=== PATIENT | female | born 1950 | race Caucasian/White ===

== ENCOUNTER → 2019-05-21 | Outpatient (CLI) | payer OTHER, MEDICARE, SELFPAY ==
[2019-05-06 11:11] VITALS: BMI 36.7
--- NOTE | 2019-05-21 14:52 | ECHOCS_ITS ---
Reason For Study: CAD/ASHD Procedure This was a 2D Doppler, Color Flow transthoracic echocardiogram. The study was technically difficult. Contrast injection was performed. Exam performed in department. Left Ventricle Normal size and thickness. The estimated ejection fraction is 65 %. Stage 1 diastolic dysfunction. No regional wall motion abnormalities noted. Right Ventricle Normal size and thickness. Normal systolic function. Atria Normal left atrium. Normal right atrium. Normal atrial septum. Mitral Valve The mitral valve is structurally normal. No prolapse or stenosis seen. Trivial mitral valve insufficiency. Tricuspid Valve Normal tricuspid valve. Unable to estimate RV systolic pressure due to insufficient tricuspid regurgitant envelope. Aortic Valve Normal aortic valve. Trisinus/trileaflet aortic valve. Pulmonic Valve Normal pulmonic valve. Great Vessels Normal aortic root. Normal arch. Normal inferior vena cava. Inferior vena cava collapse with sniff. Pericardium/Pleural No pericardial effusion. Medication 22 gauge I.V. with prn adaptor inserted into right arm. Diluted definity 2ml given slow IV push to enhance endocardial definition. MMode/2D Measurements & Calculations LVIDd: 5.2 cm IVSd: 1.2 cm LAV(MOD-sp4): 60.8 ml LVIDs: 3.3 cm LVPWd: 1.0 cm FS: 37.4 % LA A4 area: 20.2 cm2 RA A4 area: 16.4 cm2 Time Measurements MV dec time: 0.23 sec Doppler Measurements & Calculations MV E max aditya: 115.1 cm/sec Lat Peak E' Aditya: 7.2 cm/sec Med Peak E' Aditya: 5.5 cm/sec MV A max aditya: 119.9 cm/sec E/E' lat: 16.1 E/E' med: 21.0 MV E/A: 0.96 MV V2 max: 151.2 cm/sec MV P1/2t max aditya: 129.0 cm/sec Ao V2 max: 138.9 cm/sec MV max P.1 mmHg MV P1/2t: 122.9 msec Ao max P.7 mmHg MV V2 mean: 87.8 cm/sec MV dec slope: 307.7 cm/sec2 Ao V2 mean: 91.3 cm/sec MV mean P.5 mmHg Ao mean P.8 mmHg MV V2 VTI: 45.1 cm MVA(P1/2t): 1.8 cm2 Ao V2 VTI: 29.2 cm LV V1 max: 91.8 cm/sec PA V2 max: 76.1 cm/sec LV V1 max P.4 mmHg LV V1 mean P.0 mmHg LV V1 mean: 65.9 cm/sec LV V1 VTI: 24.9 cm Interpretation Summary The estimated ejection fraction is 65 %. Stage 1 diastolic dysfunction. Trivial mitral valve insufficiency. Unable to estimate RV systolic pressure due to insufficient tricuspid regurgitant envelope. Compared to echo report dated 10/23/2016, LV Function has completely normalized. The study was technically difficult. Contrast injection was performed. Ordering Physician: Lance Dunne Referring Physician: Jonathan Vizcarra Performed By: Brodwolf, Erik, RCS
== END | disposition home or self-care (01) ==
LOC: CVS 14:50
PROVIDERS: Family Provider Family Medicine; PCP Family Medicine; Referring Provider Internal Medicine Cardiovascular Disease; Visit Provider Internal Medicine Cardiovascular Disease
DX: I25.10 Atherosclerotic heart disease of native coronary artery without angina pectoris (principal); I10 Essential (primary) hypertension; E78.5 Hyperlipidemia, unspecified
CPT/HCPCS: 93306; Q9957; A4216; C8929

== ENCOUNTER → 2019-06-04 | Outpatient (CLI) | payer OTHER, MEDICARE, SELFPAY ==
[2019-05-06 11:11] VITALS: BMI 36.7
[2019-05-22 10:00] VITALS: BMI 37.4
--- NOTE | 2019-06-04 09:30 | STEWCON_ITS ---
Reason For Study: CAD/ASHD Stress Results Protocol: Cristino Protocol WITH DEFINITY Maximum Predicted HR: 150 bpm Target HR: 128 bpm % Maximum Predicted HR: 91 % DurationHeart Rate Stage (mm:ss) (bpm) BP Comment BASELINE 74 124/622 CC DEFINITY STAGE 1 3:00 118 164/88 STAGE 2 1:03 137 / INCREASED SOB, 2 CC DEFINITY RECOVERY 86 120/78 Stress Duration: 4:03 mm:ss Maximum Stress HR: 137 bpm Baseline Echocardiogram Findings The estimated ejection fraction is 65 %. Stress Echo Wall motion Data Resting WM Intermediate WM Stress WM Resting Wall Motion Wall Motion Stress No regional wall motion Mid-Anterior : Severely abnormalities noted. Hypokinetic. Mid-Lateral : Severely Hypokinetic. Mid-anteroseptal : Severly Hypokinetic. Anterior Badger : Severly Hypokinetic. EKG Data The baseline ECG displays normal sinus rhythm. The patient exercised according to the regular Cristino protocol for a total duration of 4:03. The maximum heart rate attained was 139 beats per minute. This was 92% of maximum predicted heart rate. The patient exercised into stage 2 of the Cristino protocol. The stress ECG displays diffuse abnormal ST segments. Interpretation Summary The estimated ejection fraction is 65 %. Mid-Anterior : Severely Hypokinetic. Mid-Lateral : Severely Hypokinetic. Mid-anteroseptal : Severly Hypokinetic. Anterior Badger : Severly Hypokinetic. Abnormal, adequate, treadmill echocardiogram. Positive for ischemia by EKG and echocardiographic criteria. No anginal symptoms noted. No arrhythmias noted. Appropriate blood pressure response to exercise. Below average exercise capacity for age. Patient appeared to develop [address] segment depression at peak exercise which persisted until 9 minutes 50 seconds into recovery. In addition she appeared to develop severe mid anteroseptal, anteroapical, and lateral hypokinesis at peak exercise. Test terminated due to dyspnea and fatigue. Final LVEF of 35%. Patient was referred to our office for arrangements for left heart catheterization. No complications. The study was technically difficult. Contrast injection was performed. Ordering Physician: Lance Dunne MD Referring Physician: Lance Dunne Performed By: Tona Pal, BERYL, RVT
--- NOTE | 2019-06-04 10:32 | RAD_ITS ---
STUDY: X-RAY CHEST REASON FOR EXAM: Female, 68 years old. Abnormal stress echo TECHNIQUE: Frontal and lateral views of the chest. COMPARISON: 10/24/2016 FINDINGS: The lungs are clear and expanded. There is no demonstrated pleural abnormality. Normal size heart. Normal mediastinum and debbie. Normal visualized pulmonary arteries. Normal visualized aortic arch and descending thoracic aorta. Normal visualized thoracic spine. Hardware in the right humerus. Clips in the right neck. Remote rib trauma. There is no demonstrated abnormality of the visualized soft tissue structures of the upper abdomen. RAD/Chest PA and Lateral IMPRESSION: No acute pulmonary findings. Electronically Signed: Lui Vega MD at 20:20 EDT Tel , Service support ,
[2019-06-04 11:44] LABS: Hematocrit 37.5 % (37-47); Hemoglobin 12.3 g/dL (12.0-15.0); Mean Corp Hgb Conc 32.8 g/dL (32-36); Mean Corpuscular Volume 91.5 fL (81-99); Platelet Count 200 K/mm3 (150-450); RBC Distribution Width CV 12.8 % (11.6-14.6); RBC Distribution Width SD 42.8 fl (35.1-43.9)
[2019-06-04 12:02] LABS: Anion Gap 10 (5-15); BUN 27 mg/dL (7-18); BUN/Creat Ratio 18.5 RATIO (10-20); Calcium,Total 9.2 mg/dL (8.5-10.1); Chloride 105 mmol/L (98-107); Creatinine, Serum 1.46 mg/dL (0.55-1.02); EST Glomerular Filtration Rate 38 mL/min (>60); Est Glom Filt Rate - Afr Amer 45 mL/min (>60); Glucose 154 mg/dL (74-106); Potassium 4.6 mmol/L (3.5-5.1); Sodium Level 141 mmol/L (136-145)
[2019-06-04 12:05] LABS: International Normalized Ratio 1.2; Partial Thromboplast Time 28.4 Seconds (24.1-36.2); Prothrombin Time (Protime)PT. 15.2 SECONDS (11.7-14.9)
== END | disposition home or self-care (01) ==
PROVIDERS: Family Provider Family Medicine; PCP Family Medicine; Referring Provider Internal Medicine Cardiovascular Disease; Visit Provider Internal Medicine Cardiovascular Disease
DX: I25.10 Atherosclerotic heart disease of native coronary artery without angina pectoris (principal); Z95.5 Presence of coronary angioplasty implant and graft; E78.5 Hyperlipidemia, unspecified; R94.39 Abnormal result of other cardiovascular function study
CPT/HCPCS: 36415; 71046; 80048; 85027; 85610; 85730; 93017; 93350; Q9957; A4216; C8928

== ENCOUNTER 2019-06-11 07:48 | Day surgery (SDC) | payer OTHER, MEDICARE, SELFPAY ==
[2019-05-22 10:00] VITALS: BMI 37.4
[2019-06-10 08:08] VITALS: BMI 37.4
--- NOTE | 2019-06-11 10:57 | HP.PCM_ITS ---
Problem List (1) Abnormal stress echo Status: Acute (2) Atherosclerosis of coronary artery of prairie band heart without angina pectoris Status: Chronic Comment: 2.5 X 24 mm Taxus ARIANA to mid RCA; unsuccessful PTCA of totally occluded distal main CX,30% ostial stenosis of OM. Faint collaterals filling a small AV continuation and small posterior ventricular branch. 50-60% proximal stenosis of LAD which is calcified. per Dr. Dominick Mahoney @ [facility] 08/19/2007 (3) Left ventricular hypertrophy Status: Chronic Comment: EF 55% with segmental dysfunction, regional wall motion abnromalities and PROBABLE grade 2 diastolic dysfunction per echo 10/23/2016 done @ [facility] History and Physical Date of Admission: 06/11/19 [facility] [place] [address] [facility] [place] [address] OFFICE VISIT Date of Service: 05/22/19 MR#: [id number] Acct: [id number] Name: NASRIN ELLIS Rep #: [id number] : 1950 Provider: Lance trevino MD Age/Sex: 68/F Location: [facility] Status: Signed HPI HPI History of Present Illness Details: HPI History of Present Illness Details: Mrs. Ellis is a very pleasant 68-year-old female, former patient of Dr. Juarez, referred here to establish care. She has a history of hypertension, diabetes, hypercholesterolemia, chronic kidney disease, former [id number] smoker, quit in 2001, never been evaluated with pulmonary function test, never been told she had COPD, who also has coronary artery disease status post angioplasty and stenting in 2016 at [facility] by Dominick Mahoney. At that time she underwent successful Angiomax assisted drug-eluting stent to the mid right coronary artery receiving a 2.5 x-24 Taxus drug-eluting stent, and unsuccessful angioplasty of a totally occluded distal main circumflex. The LAD at that time had a 50 to 60% proximal stenosis which was calcified. This event took place after she developed T wave inversion after hysterectomy. Her most recent echocardiogram on 10/23/2016 at [facility] demonstrated an EF of 55%, mild LVH, mild MR, mild to moderate TR with an estimated RVSP of 56 mmHg consistent with at least moderate pulmonal hypertension. In addition she has peripheral vascular disease status post right carotid endarterectomy on 12/13/2011. Her most recent treadmill EKG took place on 12/14/2016 in which she went 5.3 METS and was clinically negative for ischemia. No imaging was performed. Patient denies any chest pain, angina, prior to her stent, or subsequent to it. She has had no presyncope, syncope, lightheadedness or dizziness. Recently she came in was found to be hypertensive of 150/70, and her lisinopril was increased. Her blood pressures at home of range between 108 and 142 systolic, and the patient is completely asymptomatic. She feels much better since adjusting her lisinopril. She is taking and tolerating her medicines well In our office today her blood pressure is 140/70, pulse is 72 and regular. Physical exam demonstrates regular rate and rhythm, normal S2, no S3-S4. She is a 2/6 holosystolic murmur best heard at the upper right sternal border. No edema. Her EKG dated 05/06/2019 shows normal sinus rhythm, normal axis, normal intervals, no evidence of previous myocardial infarction. Her lipids as of 04/14/2019 show an HDL of 42 and LDL of 86. Intake Vital Signs 05/22/19 Blood Pressure 150/70 H 05/22/19 Blood Pressure Location Lt brachial 05/22/19 Blood Pressure Position Sitting 05/22/19 Respiratory Rate 20 H 05/22/19 Pulse Rate 72 05/22/19 Pulse Source Auscultation 05/22/19 Height 5 ft 4 in 05/22/19 Weight: 218 lb 05/22/19 Body Mass Index (BMI) 37.4 05/22/19 Blood Pressure 140/70 H 05/22/19 Blood Pressure Location Lt brachial 05/22/19 Blood Pressure Position Sitting 05/22/19 Respiratory Rate 20 H 05/22/19 Pulse Rate 72 05/22/19 Pulse Source Auscultation Intake Visit Reasons: 2 WK BP CK Short Piece Handler Required: No Is patient in pain?: No Allergies pioglitazone HCl [From Actos] Allergy (Verified 05/22/19 10:06) Swelling Medications Aspirin [Aspirin, Baby] 81 mg PO QHS 09/07/13 [History Confirmed 04/30/19] Multivitamins,Ther W-Minerals [Multivitamin With Minerals] 1 tab PO DAILY 09/07/13 [History Confirmed 04/30/19] Metoprolol(XL)Succ [Toprol Xl (Beta Cj)] 50 mg PO DAILY 10/23/16 [History Confirmed 04/30/19] Ranitidine HCl 1 tab PO DAILY 10/23/16 [History Confirmed 04/30/19] Magnesium Oxide 400 mg PO DAILY #1 tab 10/25/16 [Rx Confirmed 04/30/19] bifidobacterium bifidum and longum 460 mg (9-1 billion cell) capsule cap PO cap 04/30/19 [History Confirmed 04/30/19] cholecalciferol (vitamin D3) 2,000 unit capsule 4,000 unit PO DAILY cap 04/30/19 [History Confirmed 04/30/19] clopidogrel 75 mg tablet 75 mg PO DAILY 04/30/19 [History Confirmed 04/30/19] glimepiride 2 mg tablet 2 mg PO QAM 04/30/19 [History Confirmed 04/30/19] nitroglycerin 0.4 mg sublingual tablet 0.4 mg SUBLINGUAL Q5-15M 04/30/19 [History Confirmed 04/30/19] amlodipine 10 mg tablet 5 mg PO DAILY tab 05/06/19 [History Confirmed 05/06/19] exenatide ER 2 mg/0.65 mL subcutaneous pen injector 2 mg SC Q7D 05/06/19 [History Confirmed 05/06/19] furosemide 20 mg tablet 20 mg PO QAM tab 05/06/19 [History Confirmed 05/06/19] lisinopril 20 mg tablet 20 mg PO DAILY #90 tab 05/06/19 [Rx Confirmed 05/06/19] menthol 4 % topical gel 1 applic TOPICAL TID PRN ml 05/06/19 [History Confirmed 05/06/19] niacin ER 500 mg capsule,extended release 500 mg PO QHS 05/06/19 [History Confirmed 05/06/19] rosuvastatin 10 mg tablet 10 mg PO DAILY #90 tab 05/06/19 [Rx Confirmed 05/06/19] [facility] Medical History Diastolic congestive heart failure (Chronic) Chronic kidney disease (Chronic) Left ventricular hypertrophy (Chronic) Secondary pulmonary hypertension (Chronic) Nonrheumatic mitral (valve) insufficiency (Chronic) Nonrheumatic tricuspid (valve) insufficiency (Chronic) Atherosclerosis of coronary artery of prairie band heart without angina pectoris (Chronic) PVCs (premature ventricular contractions) (Chronic) Carotid artery disease (Chronic) Essential hypertension (Chronic) Hyperlipidemia (Chronic) Diabetic neuropathy (Chronic) Diabetes mellitus, type II (Chronic) History of arthritis (Chronic) Surgical History Stented coronary artery (Chronic 08/19/07) History of right-sided carotid endarterectomy (Chronic 12/13/11) History of cataract removal with insertion of prosthetic lens (Chronic) History of colonoscopy (Chronic) History of laparoscopic-assisted vaginal hysterectomy (Chronic) History of shoulder surgery (Chronic) History of tonsillectomy (Chronic) Family History Mother COPD (chronic obstructive pulmonary disease) Hypertension CAD (coronary artery disease) Sister Hypertension Diabetes Social History (Updated 05/22/19 @ 10:25 by Lance Dunne MD) Smoking Status: Former smoker quit date: 05/01/02 pack-years: 40 how long ago did patient quit smokin years ago alcohol intake: current alcohol intake frequency: holidays/special occasions only substance use type: does not use caffeine: Yes Type: coffee Number of servings: 12 additional social history: Works at [employer] ROS Const Const: Negative for fatigue, weakness, body ache, fever(s), headache(s), chills, frequent falls, night sweats, daytime sleepiness, difficulty sleeping, excessive sweating, weight gain, weight loss, increased appetite, poor appetite, anorexia or other Eyes Eyes: Negative for blind spots, loss of peripheral vision, transient loss of vision, blurry vision, change in vision, double vision, floaters, tunnel vision or other ENT ENT: Negative for headache(s), dizziness, hearing loss, tinnitus, Nosebleed/epistaxis, balance problems, post nasal drip, lip swelling, tongue swelling, bleeding gums, hoarseness, neck pain, dry mouth or other Cardio Chest Pain: No Resp Respiratory: Negative for SOB with activity, SOB at rest, SOB orthopnea\SOB lying down, Coughing up blood/hemoptysis, chest congestion, pain on inspiration, snoring, stridor, wheezing, crackles, paroxysmal nocturnal dyspnea or other GI GI: Negative nausea, vomiting, heartburn, constipation, belching, bloating, cramping, vomiting blood/hematemesis, bright, red blood in stools, black,tarry stools, loose stools, Difficulty Swallowing or other : Negative for hematuria, frequent nighttime urination/ nocturia, erectile dysfunction or abnormal vaginal bleeding Musc Musc: Negative for muscle aches/ myalgia, muscle weakness, joint pain or balance problems Skin Skin: Negative redness, non-healing lesions, rash, unusual bruising, skin ulcer, wounds, jaundice or other Neuro Neuro: Negative for dizziness, lightheadedness, near syncope, syncope, orthostatic symptoms, frequent falls, headache(s), weakness, confusion, memory loss, restless legs, blurry vision, double vision, vertigo, seizures, lack of coordination or other Michael Hematologic/Lymphatic: Negative for easy bleeding, easy bruising, enlarged lymph nodes or other Endo Endo: Negative for fatigue, cold intolerance, heat intolerance, excessive sweating, flushing, increased thirst/drinking, increased hunger, hair loss, hair growth or other Psych Psych: Negative for anxiety, depression, thoughts of harming anyone, thoughts of harming yourself, visual hallucinations, panic attacks or audible hallucinations Allergy Allergy/Immunology: Negative for throat swelling, Negative for tongue swelling, Negative for hives, Negative for rash, Negative for lip swelling Cardiology Exam Const Appearance: cooperative, healthy appearing and no acute distress Nutritional Appearance: well nourished Orientation: alert, oriented x3 and oriented to person Head Head: normal to inspection, normocephalic and atraumatic Nose: external nose normal Face and Sinus: face symmetric Mouth: oral mucosae normal Eyes General: appearance normal, both eyes and all related structures Eyelids: eyelids normal Conjunctivae: conjunctivae normal Pupils: PERRL and normal by confrontation EOM: EOM intact bilaterally Neck Neck: normal visual inspection and full ROM Carotids: normal carotid upstroke Chest Chest inspection: normal inspection of the chest Auscultation: Bilateral: Clear to Auscultation Cardio Palpation: normal PMI Rate: regular rate Rhythm: regular rhythm Heart sounds: S1 normal and S2 normal GI GI: normal to inspection, no hepatosplenomegaly and bowel sounds present Neuro General: alert, awake, oriented x3, CN's II-XI intact bilaterally and moves all extremities Skin Skin: no rashes or lesions noted Extremities Pulses: Normal: Right Femoral Pulse, Left Femoral Pulse, Right Dorsalis Pedis Pulse, Left Dorsalis Pedis Pulse, Right Posterior Tibial Pulse, Left Posterior Tibial Pulse, Right Radial Pulse, Left Radial Pulse Lower Extremity Edema: None: Bilateral Psych Psychological: normal affect Assessment & Plan 1. Atherosclerosis of coronary artery of pra[place] heart without angina pectoris I25.10 2.5 X 24 mm Taxus ARIANA to mid RCA; unsuccessful PTCA of totally occluded distal main CX,30% ostial stenosis of OM. Faint collaterals filling a small AV continuation and small posterior ventricular branch. 50-60% proximal stenosis of LAD which is calcified. per Dr. Dominick Mahoney @ [facility] 08/19/2007 Plan 1. Coronary artery disease: No exertional anginal symptoms at this time. Her blood pressure and heart rate are under excellent control. Recommend continuing her baby aspirin, Plavix, amlodipine Lasix, lisinopril and metoprolol. Orders Orders: Echo Complete Today 2. Secondary pulmonary hypertension RVSP 56 mmhg per echo 10/23/2016 done @ [facility] Plan 2. Pulmonary hypertension: The patient had at least moderate pulmonary hypertension by echocardiogram in 2017. I recommended a repeat echocardiogram for both her coronary disease as well as her pulmonary hypertension. Continue diuretic therapy. She is euvolemic at this time. 3. Hyperlipidemia E78.5 Plan 3. Hyperlipidemia: Her LDL and HDL cholesterol under excellent control. Continue Niaspan. 4. Return office in 6 months. This note was generated using a voice recognition system and there may be incorrect words, spelling or punctuation that were not noted when reviewing the office note prior to saving. Plan Detail Follow Up +6M ([place]) Coding Level of Care Code Off vis,est,level 3 Diagnoses Atherosclerosis of coronary artery of prairie band heart without angina pectoris I25.10 Secondary pulmonary hypertension Hyperlipidemia E78.5 Coding Level of Care Code Off vis,est,level 3 Diagnoses Atherosclerosis of coronary artery of pra[place] heart without angina pectoris I25.10 Secondary pulmonary hypertension Hyperlipidemia E78.5 Supplemental Info Supplemental Information Diagnostics Electrocardiogram 05/06/19 Chest X-Ray 10/24/16 05/22/19 1025 <Electronically signed by Lance Dunne MD> Date _ Lance Blackburn Signature: Date (if applicable) CC: Santos Vizcarra MD ~ Interventional cardiology attending: Patient seen and examined, and history and physical reviewed. No interim changes since last visit. We will proceed with left heart catheterization.
--- NOTE | 2019-06-11 11:31 | CL.D_ITS ---
Patient Name: NASRIN HUGGINS Study Date: 06/11/2019 Performing: Lance Dunne MD Ht: 64.17 inches 163 cm : 1950 Wt: 214.49 lbs 97.29 kg Age: 68 Gender: female BSA: 2.02 PROCEDURE(S) PERFORMED QO32-MBI/COR/LV CLINICAL PROFILE AND INDICATIONS Indications: Stable Known CAD, Other; abnormal stress test Heart Failure: None Stress/Imaging Date: 06/04/2019Stress Echocardiogram: Positive Intermediate Risk Angina Classification Anginal Classification w/in 2 Weeks: No symptoms CAD Presentations: Other: Dyspnea on exertion. Comorbidities/Risk Factors: Hypertension Dyslipidemia Prior PCI CONCLUSIONS Normal Left Ventricular systolic function LVEF: by LV gram 65 % Elevated Left Ventricular End Diastolic Pressure Triple vessel CAD of the LM, LAD, DIAG, OM Widely patent RCA stent RECOMMENDATIONS Management as per referring Contract Serviceman Surgery consult for coronary revascularization DESCRIPTION OF PROCEDURE The patient arrived to the procedure lab. The risks and benefits of the procedure as well as a full d escription of our services here and current unavailability of surgical backup were fully explained to the patient and/or their significant other prior to the catheterization. The Timeout was completed, verifying the correct patient and procedure. The patient's procedural site was prepped and draped in the usual fashion. Local anesthetic was given subcutaneously to right groin region with Lidocaine 2%. Using a modified Seldinger technique, arterial access was obtained via the right femoral artery, a 4 Fr sheath was inserted Left Coronary Artery selective angiography was performed in multiple views us ing a 4 Fr. JL5 catheter. Right Coronary Artery selective angiography was then performed in multiple views using a 4 Fr. 3DRC catheter. Left Ventriculography was performed in WATSON projection using a 4 Fr . Pigtail catheter. LV to AO pullback pressures were then recorded.The arterial sheath was pulled and manual compression applied until hemostasis is achieved. CORONARY ANGIOGRAPHY DOMINANCE: Right Dominant LEFT HEART ASSESSMENT Left Ventricular Ejection Fraction: by LV Gram 65 % Normal LV wall motion Normal Left Ventricular systolic function LVEDP: 23 mmHg LEFT MAIN: 70 distal % Stenosis, Severe calcification LEFT ANTERIOR DESCENDING ARTERY: Moderate calcification OSTIAL LAD: 75 % Stenosis PROX LAD: 75 % Stenosis DIAGONAL 1: Mid - 75 % Stenosis CIRCUMFLEX ARTERY: PROX CIRC: Mild calcification DISTAL CIRC: is occluded OM 1: Ostial - 85 % Stenosis RIGHT CORONARY ARTERY: MID RCA: Previously placed stent is patent COLLATERAL FLOW: Collateral flow from Right to Left COMPLICATIONS PROCEDURE MEDICATIONS Oxygen: 2 L/min via nasal cannula Nitro 300 mcg IC 06/11/2019 11:18:32 IV Fluids: .9 NaCl IV started @ 200 ml/hr 06/11/2019 08:10:02 SUMMARY OF HEMODYNAMIC DATA Time AIR REST ECG 08:06:45 ECG 10:32:08 AO 173/60 (104) SA 11:09:26 LV 170/-5, 24 11:17:17 LV 172/-4, 23 11:17:23 LVp 172/-6, 22 11:17:39 AOp 174/57 (103) 11:17:44 AO 176/59 (105) 11:17:58 Signed By Lance Dunne MD On 06/11/2019 11:30:51 Signed By Lance Dunne MD On 06/11/2019 11:30:38 Lance Dunne MD
== END 2019-06-11 15:50 | disposition home or self-care (01) ==
LOC: CLSP 07:49
PROVIDERS: Family Provider Family Medicine; PCP Family Medicine; Referring Provider Internal Medicine Cardiovascular Disease; Visit Provider Internal Medicine Cardiovascular Disease
DX: I25.10 Atherosclerotic heart disease of native coronary artery without angina pectoris (principal); E11.22 Type 2 diabetes mellitus with diabetic chronic kidney disease; I13.0 Hypertensive heart and chronic kidney disease with heart failure and stage 1 through stage 4 chronic kidney disease, or unspecified chronic kidney disease; N18.9 Chronic kidney disease, unspecified; I50.30 Unspecified diastolic (congestive) heart failure; E78.00 Pure hypercholesterolemia, unspecified; I27.20 Pulmonary hypertension, unspecified; I49.3 Ventricular premature depolarization; E11.40 Type 2 diabetes mellitus with diabetic neuropathy, unspecified; E11.51 Type 2 diabetes mellitus with diabetic peripheral angiopathy without gangrene; I34.0 Nonrheumatic mitral (valve) insufficiency; Z95.5 Presence of coronary angioplasty implant and graft; Z79.82 Long term (current) use of aspirin; Z79.84 Long term (current) use of oral hypoglycemic drugs; Z79.899 Other long term (current) drug therapy; Z87.891 Personal history of nicotine dependence
CPT/HCPCS: 93458; J7030; C1769; C1894; Q9967

== ENCOUNTER → 2019-09-29 13:03 | Outpatient (CLI) | payer OTHER, MEDICARE, SELFPAY ==
[2019-06-10 08:08] VITALS: BMI 37.4
--- NOTE | 2019-09-29 13:19 | US_ITS ---
Procedure: Ultrasound-guided left thoracentesis. INDICATIONS: Pleural effusion. CONSENT: The entire procedure, risks, benefits and alternatives (including doing nothing) were discussed with the patient preprocedure. Risks presented included (but were not limited to) infection/abscess, bleeding, pain, reaction to medications and collapse of lung with potential need for chest tube placement. All patient questions were answered satisfactorily. Written consent was obtained, witnessed and placed on the patient''s chart. TECHNIQUE: The patient was taken into the ultrasound suite and placed in the upright sitting position. A short timeout was performed. Limited and directed sonographic evaluation of the left lung base demonstrated a moderate pleural fluid collection. An intended percutaneous site was identified and marked. The soft tissues overlying and around the intended percutaneous site were then thoroughly prepped and draped in the usual sterile manner. Local and deep anesthesia was obtained utilizing 2.0 cc of 2% lidocaine without epinephrine. A tiny dermatotomy was made. Next, a 5 Nigerian single access device with central sharp stylette and outer poly catheter was advanced into the pleural fluid collection and the central stylette removed. From this positioning, 2, 60 cc syringes were filled with the pleural fluid and sent to the laboratory for evaluation. Thereafter, vacuum device was utilized to remove left lung base pleural fluid. Total volume of approximately 1 L of serosanguineous fluid was removed from the left lung pleural space. All devices were removed, the soft tissues cleansed and a sterile occlusive dressing applied. US/Thoracentesis W US IMPRESSION: Successful, ultrasound-guided, left lung base thoracentesis. Postprocedure chest x-ray is pending. INDICATION: The patient tolerated the procedure well without evident immediate periprocedural complication. Electronically Signed: Davie Drummond MD at 16:08 EST , Service support ,
--- NOTE | 2019-09-29 13:53 | RAD_ITS ---
STUDY: X-RAY CHEST REASON FOR EXAM: Female, 69 years old. post thoracentesis TECHNIQUE: AP upright inspiration and expiration views status post thoracentesis. COMPARISON: June 04, 2019. FINDINGS: Status post left thoracentesis without evident pneumothorax. No shift of central cardiomediastinal structures. Status post median sternotomy. Small to moderate size residual left pneumothorax. Normal size heart. Normal mediastinum and debbie. Normal visualized pulmonary arteries. There is atherosclerotic calcification of the aortic arch with tortuosity. Mild diffuse demineralization without evident acute osseous abnormality. There is no demonstrated abnormality of the visualized soft tissue structures of the upper abdomen. RAD/Chest Insp/Exp 2 View IMPRESSION: No evident pneumothorax. No shift of central cardiomediastinal structures. Small to moderate size residual left lung base pleural fluid collection. Diffuse demineralization without evident acute osseous abnormality. Status post right humeral ORIF Electronically Signed: Davie Drummond MD at 15:54 EST , Service support ,
[2019-09-29 14:16] VITALS: BP 204/66; PULSE 83; RESP 16; O2SAT 94
[2019-09-29 14:30] VITALS: BP 145/46; BP 151/73; BP 183/75; PULSE 81; PULSE 85; PULSE 89; RESP 16; RESP 18; O2SAT 92; O2SAT 94
== END ==
PROVIDERS: Family Provider Family Medicine; PCP Family Medicine
DX: J90 Pleural effusion, not elsewhere classified (principal); Z95.1 Presence of aortocoronary bypass graft
CPT/HCPCS: 32555; 71046

== ENCOUNTER → 2019-10-21 10:14 | Outpatient (CLI) | payer OTHER, MEDICARE, SELFPAY ==
[2019-10-14 14:44] VITALS: BMI 34.3
--- NOTE | 2019-10-21 10:24 | CR.HP_ITS ---
CR - History & Physical - General Arrival date:: 10/21/19 Arrival time:: 10:15 Date of Referral:: 10/14/19 Date of CR Evaluation:: 10/21/19 Referring Physician: Dr. Lance Dunne Primary Diagnosis: CABG - History of Present Cardiac Event Onset Date: Enter Onset Date of cardiac illnesses in Comment field below Coronary Artery Bypass Graft:: Yes - 08/11/2019 PTCA or coronary stenting:: Yes - previous history Type of Symptoms:: shortness of breath, had been a previous patient of Dr. 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 Abnormal EKG and had heart cath, sent to [facility] then for CABG by Dr. Clay. Were there any complications?: s/p atrial fibrillation - Medications Home Medications: Ambulatory Orders Medication Instructions Recorded Multivitamins,Ther W-Minerals 1 tab PO DAILY 09/07/13 [Multivitamin With Minerals] cholecalciferol (vitamin D3) 50 4,000 unit PO DAILY cap 04/30/19 mcg (2,000 unit) capsule exenatide microspheres 2 mg/0.65 2 mg SC Q7D 05/06/19 mL subcutaneous pen injector niacin 500 mg capsule,extended 500 mg PO QHS 05/06/19 release rosuvastatin 10 mg tablet 10 mg PO DAILY #90 tab 05/06/19 acetaminophen 500 mg tablet 1,000 mg PO Q6H PRN tab 09/03/19 apixaban 5 mg tablet 5 mg PO BID 09/03/19 ascorbic acid (vitamin C) 500 mg 500 mg PO DAILY cap 09/03/19 capsule aspirin 81 mg tablet,delayed 81 mg PO DAILY 09/03/19 release glimepiride 2 mg tablet 4 mg PO QAM tab 09/03/19 folic acid 1 mg tablet 1 mg PO DAILY 09/30/19 furosemide 20 mg tablet 40 mg PO DAILY tab 09/30/19 melatonin 3 mg capsule 3 mg PO HS PRN 09/30/19 metolazone 2.5 mg tablet 2.5 mg PO .COMPLEX 10/14/19 metoprolol succinate 50 mg 50 mg PO BID #180 tab 10/14/19 tablet,extended release 24 hr losartan 25 mg tablet 12.5 mg PO DAILY #90 tab 10/20/19 - Allergies Allergies/Adverse Reactions: Allergies pioglitazone HCl [From Jobros] Allergy (Verified 10/14/19 15:01) Swelling Caused swelling to ankles. - Sleep Disorder Evaluation Hx of Sleep Apnea: No Do you snore loudly (louder than talking or can be heard through closed doors)?: No Do you often feel tired/ fatigued/ sleepy during daytime?: Yes Has anyone observed you stop breathing during sleep?: No History of Hypertension (for STOP score): Yes STOP Results: Positive Advanced Directives - Advanced Directives Power of Green Building Design Specialist: No Living Will: No Advance Directives Information Provided: Yes Advance Directives on File: No DNR Order?:: No - MOLST See MOLST form: No Past Medical History - Past Medical Illness Medical History: Past Medical History (Last Reviewed 10/13/19 @ 19:17 by Angelina Shahid) Bilateral pleural effusion (Acute) J90 worsening left side, small right side: pt sent for u/s guided thoracentesis per Dr. Clay Cellulitis of left leg (Acute) L03.116 post CABG in left leg SVG harvest site 08/26/19 Postoperative atrial fibrillation (Acute) I97.89, I48.91 After CABG 08/12/2019, started on Amoidarone, Eliquis. Atherosclerosis of coronary artery without angina pectoris (Chronic) I25.10 TAM to LAD, SVG to Diagonal, SVG to OM per Dr. Elijah Clay @ [facility] 08/12/2019 Abnormal stress echo (Acute) R94.39 Diastolic congestive heart failure (Chronic) I50.30 Admitted 10/23/2016 Chronic kidney disease (Chronic) N18.9 Left ventricular hypertrophy (Chronic) I51.7 EF 55% with segmental dysfunction, regional wall motion abnromalities and PROBABLE grade 2 diastolic dysfunction per echo 10/23/[address] [facility] Secondary pulmonary hypertension (Chronic) RVSP 56 mmhg per echo 10/23/[address] @ [facility] Nonrheumatic mitral (valve) insufficiency (Chronic) I34.0 Mild (1+) per echo 10/23/2016 done a@ [facility] Nonrheumatic tricuspid (valve) insufficiency (Chronic) I36.1 Moderate (1-2+) per echo 10/23/[address] [facility] Atherosclerosis of coronary artery of [place] heart without angina pectoris (Chronic) I25.10 2.5 X 24 mm Taxus ARIANA to mid RCA; unsuccessful PTCA of totally occluded distal main CX,30% ostial stenosis of OM. Faint collaterals filling a small AV continuation and small posterior ventricular branch. 50-60% proximal stenosis of LAD which is calcified. per Dr. Dominick Mahoney @ [facility] 08/19/2007 PVCs (premature ventricular contractions) (Chronic) I49.3 Carotid artery disease (Chronic) I77.9 Essential hypertension (Chronic) I10 Hyperlipidemia (Chronic) E78.5 Diabetic neuropathy (Chronic) E11.40 Diabetes mellitus, type II (Chronic) E11.9 History of arthritis Z87.39 - Past Surgical History Surgical History: Past Surgical History (Last Reviewed 10/13/19 @ 19:17 by Angelina Shahid) S/P CABG x 3 (Chronic) Onset Date: 08/12/19 Z95.1 TAM to LAD, SVG to Diagonal, SVG to OM per Dr. Elijah Clay @ [facility] 08/12/2019 History of left heart catheterization (Chronic) Onset Date: 06/11/19 Z98.890 LEFT ANTERIOR DESCENDING ARTERY: Moderate calcification; OSTIAL LAD: 75 % Stenosis; PROX LAD: 75 % Stenosis; DIAGONAL 1: Mid - 75 % Stenosis; CIRCUMFLEX ARTERY: PROX CIRC: Mild calcification DISTAL CIRC: is occluded; OM 1: Ostial - 85 % Stenosis; IGHT CORONARY ARTERY: MID RCA: Previously placed stent is patent. COLLATERAL FLOW: Collateral flow from Right to Left. Recommend surgical revascularization per [facility] done 06/11/[address] AURELIA @ [facility] Stented coronary artery (Chronic) Onset Date: 08/19/07 Z95.5 2.5 X 24 mm Taxus ARIANA to mid RCA; unsuccessful PTCA of totally occluded distal main CX,30% ostial stenosis of OM. Faint collaterals filling a small AV continuation and small posterior ventricular branch. 50-60% proximal stenosis of LAD which is calcified. per Dr. Dominick Mahoney @ [facility] 08/19/2007 History of right-sided carotid endarterectomy (Chronic) Onset Date: 12/13/11 Z98.890 History of cataract removal with insertion of prosthetic lens Z98.49, Z96.1 Both eyes History of colonoscopy Z98.890 History of laparoscopic-assisted vaginal hysterectomy Z90.710 History of shoulder surgery Z98.890 ORIF post fracture right shoulder History of tonsillectomy Z90.89 Surgical History: - - Hysterectomy, tonsillectomy, right carotid endarterectomy, right arm surgery, coronary artery stent - Family History Summary Family History: Family History (Last Reviewed 10/13/19 @ 19:17 by Angelina Shahid) Mother COPD (chronic obstructive pulmonary disease) Hypertension CAD (coronary artery disease) Sister Hypertension Diabetes Social History - Smoking History Smoking Status: Former smoker - quit in 2016. Hx Tobacco Use: No Hx Smoking Exposure: No - Alcohol Use Alcohol Usage: No - Substance Abuse Hx Substance Use: No - Occupation Occupation (List type of work in comments):: Homemaker, Retired - Hobbies, Recreation, Social Activities Hobbies: Other - solitaire, jig saw puzzles Recreational Activities: I am able to engage in all my recreational activities Social Environment - Status Marital Status: - Current Living Arrangements Living Environment:: Alone - Children How many children do you have?: 0 Do any of your children live nearby?: No - friends, very supportive. - Safety Do you feel safe in your surroundings?: Yes - Assistance Do you need any assistance at home?: none Review of Systems - Review of Systems Hints: Right click = Denies ([place]). Left click = Reports ([place]) Review of Present Symptoms: Reports: Wound Healing, Dizziness/Lightheadedness - cut losartan in half due to recent fall from dizziness lightheadedness per Dr. Dunne. She is still experiencing some lightheadedness but very occasional now.. Denies: Shortness of Breath at Rest, Shortness of Breath with Exertion - Pain Is Patient Pain Free?: Yes Pain Location: none Pain Level: 0/10 Risk Factor Assessment - Chief Complaint Chief Complaint: Patient is a very nice 69 yr old female who presents to cardiac rehab today following a recent CABG at [facility] on 08/11/2019. She is following up with Dr. Lance Dunne here at [facility] post care cardiology. - Vital Signs Temperature: 98.6 F Respiratory Rate: 16 Pulse Ox: 95 Blood Pressure: 148/62 Nailbeds:: pink - Pulse Pulse Rate: 92 Pulse Rhythm: Regular - Hypertension Blood Pressure Sitting - Right Arm: 148/62 - Blood Cholesterol/Lipids Total Cholesterol (mg/dL) Goal = less than 200 mg/dL: 0 - not available at this time - Diabetes Diabetic History: Type II, Medication Dependent Nutrition Referral for Diabetes: Yes - Obesity Height: 5 ft 4 in Weight:: 200 lb Weight in Pounds: 200.0 lbs Weight Source: Standing Scale Body Mass Index (BMI): 34.3 Nutritional Referral for Obesity: Yes - Why Weight program referral Obesity >34 - Physical Inactivity Physical Inactivity: Recreational activity - Risk Stratification Risk Guidelines: Lowest Risk: Risk Factor for Smoking, Risk Factor for Dyslipidemia, Risk Factor for Diabetes - check regular at home A1c unavaiable, Risk Factor for Depression, Moderate Risk: Risk Factor for Hypertension - 148/68, Risk Factor for Sedentary Lifestyle, Highest Risk: Risk Factor for Obesity - BMI 34.3 - For Smoking Smoking Risk Guidelines: Smoking Low Risk: None or quit greater than 6 months ago. Smoking Moderate Risk: Smoker or quit 6 months or less ago. Smoking High Risk: Smoker - For Dyslipidemia Dyslipidemia Risk Guidelines: Low Risk: Moderate Risk: High Risk: 15-25% fat 25.1-29% fat >/= 30% fat. <7% sat fat 7-9% sat fat >9% sat fat. <150 mg chol 150-299 mg chol >/= 300 mg chol. LDL <100 LDL 100-129 LDL >/= 130. Chol/HDL ratio <5.0 Chol/HDL ratio 5.0-6.0 Chol/HDL ratio >6.0. Triglycerides <100 Triglycerides 100-149 Triglycerides >/= 150 - For Diabetes Mellitus Diabetes Risk Guidelines: Diabetes Low Risk: HgA1c <6.5% and/or FBG <120. Diabetes Moderate Risk: HgA1c 6.6-7.9% and/or FBG 120-180. Diabetes High Risk: HgA1c >/= 8% and/or FBG >180 - For Obesity/Overweight Obesity/Overweight Risk Guidelines: Obesity Low Risk: BMI <25.0. Obesity Moderate Risk: BMI 25-29.9. Obesity High Risk: BMI >/= 30.0 - For Hypertension Hypertension Risk Guidelines: Hypertension Low Risk: Systolic <120 and Diastolic <80. Hypertension Moderate Risk: Systolic 120-139 and Diastolic 80-89. Hypertension High Risk: Systolic >/= 140 and Diastol ic >/= 90 - For Sedentary Lifestyle Sedentary Lifestyle Risk Guidelines: Sedentary Lifestyle Low Risk: >/= 1,500 kcal/week. Sedentary Lifestyle Moderate Risk: 700-1,499 kcal/week. Sedentary Lifestyle High Risk: < 700 kcal/week - For Depression Depression Risk Guidelines: Depression Low Risk: Not clinically depressed. Depression Moderate Risk: Mildly depressed. Depression High Risk: Clinically depressed - Family History Family History: Family History (Last Reviewed 10/13/19 @ 19:17 by Angelina Shahid) Mother COPD (chronic obstructive pulmonary disease) Hypertension CAD (coronary artery disease) Sister Hypertension Diabetes Motivation - Motivation to Participate On a scale of 1 to 10, how prepared are you to commit to attending program?: 8 - want to get better, just dont like the cold weather. What do you see as barriers to successfully being able to complete the program?: none What do you see as the benefits of succesfully completing the program? In other words, what do you hope to get out of participating in the program?: physically active, get back to moving again. 69 is young my father was 90. Are there issues you are dealing with that will interfere with completing the program?: none Do you have a spouse or signficant other, family or friends who will help support you to complete the program?: yes.
--- NOTE | 2019-10-21 10:25 | PCM.CR.ITP ---
General Information - General Information Admitting Diagnosis: S/P CABG 08/11/2019 - Education/Goals Barriers to Learning: Vision Impairment Individual Counseling: Initial Assessment: Abnormal Cholesterol Levels, High Blood Pressure - 160/70, Overweight/Obesity - BMI 34.3, Diabetes - TYPE II DM Cardiac Rehabilitation Goals: 1. Maintain the individual as the primary focus of care. 2. To improve the patient's quality of life. 3. Identification of cardiac risk factors and provide cardiac risk factor management. 4. Enhance the psychosocial status of the patient. 5. Reconditioning enough to allow the patient to resume customary activities. 6. Control symptoms of cardiac disease Scale for measuring improvement of personal goals: Enter appropriate number in Comments. 2 = Unchanged. 3 = Slightly Better. 4 = Moderate Improvement. 5 = Met my Goal Personal Goals: Initial Assessment: Improve energy level, Participate in home exercise program, Improve muscle strength and endurance, Improve diet and eating habits (eat healthier), Control risk factors (learn risk factor modification) Exercise - Initial Assessment - Visit Date of Eval: 10/21/19 Session #:: 0 - EVALUATION TODAY/SCHEDULED START DATE - Stages of Change Stages of Change:: Action - Physician Prescribed Exercise Modalities: Treadmill - LOW LEVELS ON TREADMILL, AMBULATES WITH A CANE, Airdyne, NuStep, SciFit Frequency (days/week): 3x/week for 12 weeks [36 sessions] Duration (Minutes):: 30-45 Intensity: 60-80% of age predicted maximum heart rate reserve METs - Progression: 0.5-1.0 MET, RPE 11-14 WEEK: 3.0 Target Heart Rate:: 97-126 - Hypertension Do any of the following apply?: Yes, Medication Resting Blood Pressure:: 148/62 - Intervention Home Exercise/Activity Goal:: Sitting Time <3 hrs/day - Education Goals:: Warm-up, RPE LUCERO Scale, S/S, Safe Exercise, Self-Monitoring - Exercise Program Goals Exercise Program Goals: Aerobic Activity >30 min Nutrition - Initial Assessment - Program Goals Nutrition Program Goals: LDL <70. Total Cholesterol <200. HDL >45. Triglycerides <150. HgbA1C <7%. BMI <25 - Visit Date of Assessment:: 10/21/19 - Stages of Change Stages of Change:: Action - Lipids Total Cholesterol (mg/dL) Goal = less than 200 mg/dL: 0 - NOT AVAILABLE AT THIS TIME - Diabetes Diabetes:: Yes Insulin: No Non-Insulin Dependent?: Yes Do you monitor your blood sugar at home?: Yes - Weight Management Height: 5 ft 4 in Weight:: 200 lb Body Fat %:: 34.3 - Intervention Referral to dietitian:: Yes - [facility] PROGRAM/ MEDICAL NUTRITION Referral to Diabetic Clinic:: Yes - INITIAL DSMNT & MNT Will attend diet classes:: Yes - Education Gave educational materials for:: Signs & symptoms of hypoglycemia, Signs & symptoms of hyperglycemia, Relate diabetes to coronary artery disease, Healthy eating Tobacco - Initial Assessment - Program Goals Tobacco Program Goals: Complete smoking cessation. Attend education classes. Improve Knowledge Test score - Stage of Change Stages of Change:: Action - Learning Barriers Learning Barriers: Vision, Ready to Learn - Family Support Do you have family support?: Yes - Tobacco Use Tobacco Use: Non-smoker Do you use smokeless tobacco?: No - Intervention Smoking Cessation Referral:: No Individual Education/Counseling:: No Education Schedule Given:: Yes - Education Attended class for:: Treating Heart Disease, How The Heart Works, What it means to have Heart Disease, How Coronary Artery Disease is Diagnosed, Heart Procedures, What Heart Medications Do, Risk Factors & Modifications, Living an Active Life, Nutrition, Emotions & Heart Disease, Stress Management & Relaxation, Sleep Disorders & Heart Disease Psychosocial - Initial Assess - Target Goals Target Goals: Assess presence or absence of depression. Using a valid screening tool, maximizes coping skills. Positive support system - Stages of Change Stages of Change:: Action - Psychosocial Test Tool Used:: HANDS Depression Questionnaire - Intervention PS - Interventions: Yes Referral to Mental Health - Patient had high PHQ-9 score, Yes Attend Stress Management Classes, No Referral to [facility] Case Management, No Referral to Physician, No Uses Stress Management Skills - Education Gave educational materials for:: Coping techniques, Signs & symptoms of depression, Stress management, Relaxation techniques - Patient/Program Goal Preventative Medication(s):: Aspirin, EMERSON inhibitor, Clopidogrel, Beta david, Statin/lipid - Assistive Devices Assistive Devices:: Cane Fall Risk Assessed:: Yes Patient Health Questionnaire Initial Assessment 1. Little interest or pleasure in doing things: Several days 2. Feeling down, depressed, or hopeless: Not at all 3. Trouble falling or staying asleep, or sleeping too much: Nearly every day 4. Feeling tired or having little energy: Nearly every day 5. Poor appetite or overeating: More than half the days 6. Feeling bad about yourself -- or that you are a failure or have let yourself or your family down: Not at all 7. Trouble concentrating on things, such as reading the newspaper or watching television: More than half the days 8. Moving or speaking so slowly that other people could have noticed. Or the opposite - being so fidgety or restless that you have been moving around a lot more than usual: Not at all 9. Thoughts that you would be better off , or of hurting yourself in some way: Not at all How difficult have these problems made it for you to do your work, take care of things at home, or get along with other people?: Somewhat difficult - Patient could benefit from professional behavioral counseling/support Total Score: 11 ALEJO-Q SV Test - Statements CAD is a disease of the arteries in the heart: False Examples of risk factors for heart disease: True Angina is chest pain or discomfort: I Don't Know The benefits of resistance training include: True Eating more meat and dairy products: False Anti-platelet medications such as aspirin are important: I Don't Know The only effective way to manage stress: False An exercise warm-up slowly increases heart rate: True Prepared, processed foods usually have high sodium: True Depression is common after a heart attack: I Don't Know The statin medications lower cholesterol: I Don't Know To control blood pressure, lower the amount of sodium: True If someone gets chest discomfort during walking: False Transfats are partially hydrogenated vegetable oils: I Don't Know Sleep apnea that is not treated increases the risk: I Don't Know To control cholesterol, one should become a vegetarian: False Someone knows if he/she is exercising at the right level: I Don't Know Diabetes cannot be prevented with exercise & health eating: False Stress is a large risk for heart attack: True A diet that can help lower blood pressure is rich in: True - Total Score Total Correct Responses: 13 Self-Efficacy Initial Assessment We would like to know how confident you are in doing certain activities. Please select your confidence level for:: Select your confidence level for the following using the scale 1-10 where 1 is not at all confident and 10 is totally confident. Your score is the average of all 6 responses. Fatigue: How confident are you that you can keep the fatigue caused by your disease from interfering with the things you want to do? Select Number: 8 Physical Discomfort or Pain: How confident are you that you can keep the physical discomfort or pain of your disease from interfering with the things you want to do? Select Number: 8 Emotional Distress: How confident are you that you can keep the emotional distress caused by your disease from interfering with the things you want to do? Select Number: 8 Other Symptoms or Health Problems: How confident are you that you can keep other symptoms or health problems from interfering with the things you want to do? Select Number: 8 Different Tasks and Activities: How confident are you that you can do the different tasks and activities needed to manage your health condition so as to reduce your need to see a doctor? Select Number: 7 Medication: How confident are you that you can do things other than just taking medication to reduce how much your illness affects your everyday life? Select Number: 8 Total Score:: 7 Nutrition Survey - Nutrition Survey Instructions Scoring Instructions: Scoring is as follows: Yes = 1 points. No = 0 point. Patient score that is >/=12 is considered to be at potential nutritional risk and could benefit from a referral to a registered dietitian. - Nutrition Survey Initial Have you lost >10 lbs over the past 2 months without trying?: Yes Are you following a special diet at home for diabetes, low fat, or low salt?: No Are you interested in meeting with a dietitian for help understanding your diet?: Yes Do you eat less than 3 meals a day?: Yes Do you eat fatty meats (diallo, sausage, ribs, etc), fried foods, desserts, large amounts of salad dressings, margarine, butter, or cheese most days?: Yes Do you have food allergies? [Enter types in comment field]: No Do you eat in restaurants more than 3 times a week?: No Do you season food with salt, seasoning salt, or garlic salt?: No Do you used canned, boxed, frozen meals, or soups, seasoning packets?: Yes - REFERRAL TO [facility], NUTRITIONAL THERAPY and INITIAL DSMNT & MNT Total Score:: 5
[2019-10-21 11:03] VITALS: BP 148/62; PULSE 92; RESP 16; TEMP 37; O2SAT 95; BMI 34.3
[2019-10-21 11:41] VITALS: BP 148/62
== END ==
PROVIDERS: Family Provider Family Medicine; PCP Family Medicine; Referring Provider Internal Medicine Cardiovascular Disease; Visit Provider Internal Medicine Cardiovascular Disease
DX: I25.10 Atherosclerotic heart disease of native coronary artery without angina pectoris (principal); I48.91 Unspecified atrial fibrillation; E11.22 Type 2 diabetes mellitus with diabetic chronic kidney disease; I13.0 Hypertensive heart and chronic kidney disease with heart failure and stage 1 through stage 4 chronic kidney disease, or unspecified chronic kidney disease; N18.9 Chronic kidney disease, unspecified; I50.32 Chronic diastolic (congestive) heart failure; I34.0 Nonrheumatic mitral (valve) insufficiency; I36.1 Nonrheumatic tricuspid (valve) insufficiency; I49.3 Ventricular premature depolarization; I77.9 Disorder of arteries and arterioles, unspecified; E78.5 Hyperlipidemia, unspecified; E11.40 Type 2 diabetes mellitus with diabetic neuropathy, unspecified; Z95.1 Presence of aortocoronary bypass graft; Z79.01 Long term (current) use of anticoagulants; Z79.82 Long term (current) use of aspirin; Z79.84 Long term (current) use of oral hypoglycemic drugs; Z79.899 Other long term (current) drug therapy; Z87.891 Personal history of nicotine dependence

== ENCOUNTER 2019-10-31 14:15 | Outpatient (RCR) | payer OTHER, MEDICARE, SELFPAY ==
[2019-10-21 11:03] VITALS: BMI 34.3
== END 2019-10-31 23:59 ==
LOC: CR 14:15
PROVIDERS: PCP Family Medicine; Referring Provider Internal Medicine Cardiovascular Disease; Visit Provider Internal Medicine Cardiovascular Disease
DX: I97.89 Other postprocedural complications and disorders of the circulatory system, not elsewhere classified (principal); I48.91 Unspecified atrial fibrillation; Z95.1 Presence of aortocoronary bypass graft; I25.10 Atherosclerotic heart disease of native coronary artery without angina pectoris; I50.30 Unspecified diastolic (congestive) heart failure; R94.39 Abnormal result of other cardiovascular function study
CPT/HCPCS: 93798

== ENCOUNTER 2019-11-26 15:00 | Outpatient (RCR) | payer OTHER, MEDICARE, SELFPAY ==
[2019-10-21 11:03] VITALS: BMI 34.3
== END 2019-11-26 23:59 | disposition home or self-care (01) ==
LOC: DC 15:00
PROVIDERS: PCP Family Medicine; Visit Provider Internal Medicine Cardiovascular Disease
DX: Z71.3 Dietary counseling and surveillance (principal); I12.9 Hypertensive chronic kidney disease with stage 1 through stage 4 chronic kidney disease, or unspecified chronic kidney disease; E78.5 Hyperlipidemia, unspecified; E11.40 Type 2 diabetes mellitus with diabetic neuropathy, unspecified; I25.10 Atherosclerotic heart disease of native coronary artery without angina pectoris; E11.22 Type 2 diabetes mellitus with diabetic chronic kidney disease; N18.9 Chronic kidney disease, unspecified
CPT/HCPCS: 97802; G0108

== ENCOUNTER 2019-11-28 14:15 | Outpatient (RCR) | payer OTHER, MEDICARE, SELFPAY ==
[2019-10-21 11:03] VITALS: BMI 34.3
--- NOTE | 2019-11-21 07:25 | CR.ITP_ITS ---
Diagnosis - General Information Admitting Diagnosis: S/P CABG Personal Learning Style:: Audio/Visual, Written Barriers to Learning: No Barriers Stage of change r/t lifestyle modifications:: Action Gave educational material for:: Treating Heart Disease, Emotions & Heart Disease, Stress Management & Relaxation, Sleep Disorders & Heart Disease, How The Heart Works, What it means to have Heart Disease, How Coronary Artery Disease is Diagnosed, Heart Procedures, What Heart Medications Do, Risk Factors & Modifications, Living an Active Life, Nutrition - Education/Goals Individual Counseling: Initial Assessment: Abnormal Cholesterol Levels, High Blood Pressure, Overweight/Obesity Cardiac Rehabilitation Goals: 1. Maintain the individual as the primary focus of care. 2. To improve the patient's quality of life. 3. Identification of cardiac risk factors and provide cardiac risk factor management. 4. Enhance the psychosocial status of the patient. 5. Reconditioning enough to allow the patient to resume customary activities. 6. Control symptoms of cardiac disease Personal Goals: Initial Assessment: Improve energy level, Participate in home exercise program, Improve muscle strength and endurance, Improve diet and eating habits (eat healthier), Control risk factors (learn risk factor modification) Scale for measuring improvement of personal goals: Enter appropriate number in Comments. 2 = Unchanged. 3 = Slightly Better. 4 = Moderate Improvement. 5 = Met my Goal - Diagnosis & Disease Process Outcomes/Goals: Pt IDs own risk factors & lifestyle modifications by Session 10, Verbalizes symptoms of angina & response by session 3., Pt independently manages Plan/Interventions: Assist Pt to ID & engage in lifestyle modification to reduce CVD risk, Instruct on individual risk factors, Review symptoms of angina & emergency actions, Review secondary diagnosis & identify educational needs. 30 day Reassessments:: Progressing Exercise - 30-day Assessment - Visit Date of Eval: 11/21/19 Session #:: 10 - STARTED CR ON 10/27/2019 - Physician Prescribed Exercise Modalities: Treadmill, Airdyne, NuStep Frequency: 3x/week for 12 weeks [36 sessions] Intensity: 60-80% of age predicted maximum heart rate reserve Current METSs:: 3 NO INCREASE Target Heart Rate:: 97-126 Current RPE:: 13 Maximum Excercise HR:: 91 Resting Blood Pressure: 98/54 Maximum Exercise Blood Pressure: 134/56 EKG Type: NSR WITHOUT ECTOPY - Outcomes & Goals Goals:: Verbalizes understanding of THR, RPE & goal METS by session 6, Documents in home exercise log/reports 30 min aerobic 5 day/wk by DC, Demonstrates accurate pulse taking by DC - Intervention & Plan Exercise Program Goals: Instruct on personal THR & RPE, Instruct on MET level & personal MET goal, Show patient to take own pulse /validate performance until accurate, Instruct on home exercise - 30-day Reassessments 30 day Reassessments:: Progressing - Physical Activity Home Exercise Physical Activity - Home Exercise: Safe Exercise, Warm-up, Self-monitoring, Cool-Down, Home Exercise > 30 min Daily, Sitting Time <3 hours/daily - Outcomes & Goals Outcomes/Goals: Demonstrates correct Warm-up/exercise Cool-Down (S3) if = 2.5 METs, Verbalizes symptoms of exercise intolerance by Session 3 (S3), Demonstrate safe equipment use (S3) & follows exercise prescrition (6) - Intervention & Plan Plan/Intervention: Instruct warm-up & cool-down if exercising at > 2 METs, Instruct on symptoms of exercise intolerance & actions to take, Instruct & monitor on saf, Assess intial functional capacity & safety risk - 30-day Reassessments 30 day Reassessments:: Progressing Nutrition - 30-Day Assessment - Program Goals Nutrition Program Goals: LDL <100 optimal. 100 - 129 Near optimal. 130 - 159 Borderline High. 160 - 189 High. Total Cholesterol <200 desirable. 200 - 239 Borderline High. >/= 240 High. HDL < 40 Low >/=60 High. Triglycerides <150 desirable. <199 optimal. VlDL 5 - 40. HgbA1C <7%. BMI <25 Patient has diagnosis of Hyperlipidemia (ICD E78)?: Yes - Visit Date of Assessment:: 11/21/19 Session #:: 10 - Cholesterol/Lipids Triglycerides (mg/dL): 0 - NOT AVAILABLE Determine presence & major risk factors that modify LDL goal: Hypertension or hypertensive medication, Age men > 45 years; women >/= 55 years Outcomes/Goals: Pt IDs own risk factors & lifestyle modifications by Session 10, Verbalizes symptoms of angina & response by session 3., Pt independently manages Intervention/Plan: Instruct on personal lipid levels & lipid goals/NCEP guidelines, Instruct on cholesterol Referral to dietitian:: No - SEEN [facility] ON 11/19/2019 30-day Reassessments:: Progressing - Diabetes (Other Core Measures) Diabetes Type: Diagnosis Type II ICD-10 E11 - BORDERLINE Insulin dependent injection/pump?: No Non-Insulin Dependent?: Yes Do you monitor your blood sugar at home?: Yes Referral to Diabetic Clinic:: No - SEEN ON 11/19/2019 AT 3:30 Outcomes/Goals:: Able to state symptoms of, Able to state, Able to state Intervention/Plan:: Instruct on, Refer to, Instruct on 30-day Reassessments:: Progressing - Weight Mgt (Other Care) Height: 5 ft 4 in Weight:: 196 lb 8 oz BMI: 33.7 Diagnosis Overweight/Obesity BMI> 30% ICD-10 E66: Yes Diagnosis High BMI/Morbid Obesity BMI> 35% ICD-10 Z68: No Outcomes/Goals: Pt sets, maintains & shows weight loss goal & trend during rehab Intervention/Plan: Instruct on ideal BMI & set weight loss goal w/patient, Assist pt to ID & incorporate diet changes for weight loss by S9, Encourage goal of using 250-300dcal per session for weight loss 30 day Reassessments:: Progressing - Healthy Eating Habits Will attend diet classes:: Yes Outcomes/Goals:: Consume diet rich in vegs,fruits,whole grain/high fiber,fish,lean meat, Limit sat/trans fats,cholesterol & added salts & sugars Intervention/Plan:: Assess current eating habits 30-day Reassessments:: Progressing - Education Gave educational materials for:: Signs & symptoms of hypoglycemia, Signs & symptoms of hyperglycemia, Relate diabetes to coronary artery disease, Healthy eating Medical- 30-Day Assessment - Visit Date of Eval: 11/21/19 Session #:: 10 - Medication Compliance Preventative Medication(s):: Aspirin, Statin/lipid, Beta david H/O mental health issues: depression, anxiety, or addiction?: No Doesn?t believe in the benefits of treatment?: No Believes medications are unnecessary or harmful?: No Has a concern about medication side effects?: No Expresses concern over the cost of medications?: No Outcomes/Goals: Verbalizes medications,desired effect & common side effects @ DC, Pt self-reports following medication regimen, Keeps card in wallet w/medications listed by DC Interventions/plans: Instruct on medication effects & side effects, Review medication list w/patient every two weeks, Instruct importance of taking meds as ordered & assist problem solving 30-day Reassessments:: Progressing - Tobacco Use Tobacco Use: Non-smoker - Hypertension Hypertension Diagnosis:: Hypertension ICD-10 I10 Resting Blood Pressure:: 98/54 [place] [employer] Hypertension Guidelines: [place] [employer] Hypertension Guidelines. Normal BP Less than 120/80. Elevated BP 120/80. Hypertension Stage 1: BP 130-139/80-89. Hypertesnion Stage 2: BP 140 or higher/90 or higher. Hypertension Crisis: BP higher than 180/120 Peak Exercise Blood Pressure:: 134/56 Outcomes/Goals: Able to verbalize/achieve optimal blood pressure <130/80, Incorporates diet changes & exercise for blood pressure control by DC Interventions/plan: Instruct on optimal blood pressure, hypertension & medications, Instruct on effects of sodium, alcohol, stress, exercise &hypertension 30 day Reassessments:: Progressing - Tobacco Cessation Referral Smoking Cessation Referral:: No Individual Education/Counseling:: No Education Schedule Given:: Yes Psychosocial - 30-Day Assess - VIsit Date of Eval: 11/21/19 Session #:: 10 Not Applicable: Yes History of previous Mental disease:: No - Target Goals Target Goals: Assess presence or absence of depression. Using a valid screening tool, maximizes coping skills. Positive support system - Psychosocial Test Tool Used:: [employer] QOL Cardiac, PHQ-9 Questionnaire phq-9 Severity: Severity. 1-4 Minimal Depression. 5-9 Mild Depression. 10-14 Moderate Depression. 15-19 Moderately Sever Depression. 20-27 Severe Depression. Rule: See PHQ-9 Score: 7 Total Score:: 7 - Referral to Behavioral Health PS - Interventions: Yes Referral to Physician if PHQ-9 if score is 5-9:, Yes Attend Stress Management Classes, No Referral to Behavioral Health if PHQ-9 score >9:, No Referral to [facility] - Outcomes/Goals: See list Psychosocial Outcomes/Goals:: ID's personal stressors & 2 strategies to manage stress by discharge - Intervention/Plan: See List Interventions/Plan:: Assess stressors,coping strategies & signs of derpression on admission, Instruct/assist pt to develop coping & personal stress Mgt strategies, Instruct patient to recognize signs & symptoms of depression, Instruct patient to recog - 30-day Reassessments: 30 day Reassessments:: Progressing Patient Health Questionnaire 30-Day Re-eval Assessment 1. Little interest or pleasure in doing things: Several days 2. Feeling down, depressed, or hopeless: Not at all 3. Trouble falling or staying asleep, or sleeping too much: More than half the days 4. Feeling tired or having little energy: More than half the days 5. Poor appetite or overeating: Several days 6. Feeling bad about yourself -- or that you are a failure or have let yourself or your family down: Not at all 7. Trouble concentrating on things, such as reading the newspaper or watching television: Several days 8. Moving or speaking so slowly that other people could have noticed. Or the opposite - being so fidgety or restless that you have been moving around a lot more than usual: Not at all 9. Thoughts that you would be better off , or of hurting yourself in some way: Not at all How difficult have these problems made it for you to do your work, take care of things at home, or get along with other people?: Somewhat difficult Total Score: 7 Self-Efficacy 30-Day Re-eval Assessment We would like to know how confident you are in doing certain activities. Please select your confidence level for:: Select your confidence level for the following using the scale 1-10 where 1 is not at all confident and 10 is totally confident. Your score is the average of all 6 responses. Fatigue: How confident are you that you can keep the fatigue caused by your disease from interfering with the things you want to do? Select Number: 8 Physical Discomfort or Pain: How confident are you that you can keep the physical discomfort or pain of your disease from interfering with the things you want to do? Select Number: 8 Emotional Distress: How confident are you that you can keep the emotional distress caused by your disease from interfering with the things you want to do? Select Number: 8 Other Symptoms or Health Problems: How confident are you that you can keep other symptoms or health problems from interfering with the things you want to do? Select Number: 8 Different Tasks and Activities: How confident are you that you can do the different tasks and activities needed to manage your health condition so as to reduce your need to see a doctor? Select Number: 8 Medication: How confident are you that you can do things other than just taking medication to reduce how much your illness affects your everyday life? Select Number: 8 Total Score:: 8
[2019-11-21 07:35] VITALS: BP 134/56; BP 98/54; BMI 33.7
== END 2019-11-29 23:59 ==
LOC: CR 14:15
PROVIDERS: PCP Family Medicine; Referring Provider Internal Medicine Cardiovascular Disease; Visit Provider Internal Medicine Cardiovascular Disease
DX: I97.89 Other postprocedural complications and disorders of the circulatory system, not elsewhere classified (principal); I48.91 Unspecified atrial fibrillation; Z95.1 Presence of aortocoronary bypass graft; I25.10 Atherosclerotic heart disease of native coronary artery without angina pectoris; I50.30 Unspecified diastolic (congestive) heart failure; R94.39 Abnormal result of other cardiovascular function study
CPT/HCPCS: 93798

== ENCOUNTER 2019-12-29 14:15 | Outpatient (RCR) | payer OTHER, MEDICARE, SELFPAY ==
[2019-10-21 11:03] VITALS: BMI 34.3
[2019-11-21 07:35] VITALS: BMI 33.7
[2019-11-30 00:55] VITALS: BP 134/56; BP 98/54
--- NOTE | 2019-12-19 09:07 | CR.ITP_ITS ---
Diagnosis - General Information Admitting Diagnosis: S/P CABG Personal Learning Style:: Audio/Visual, Written Barriers to Learning: Hearing Impairment, Vision Impairment Stage of change r/t lifestyle modifications:: Action Gave educational material for:: Treating Heart Disease, Emotions & Heart Disease, Stress Management & Relaxation, Sleep Disorders & Heart Disease, How The Heart Works, What it means to have Heart Disease, How Coronary Artery Disease is Diagnosed, Heart Procedures, What Heart Medications Do, Risk Factors & Modifications, Living an Active Life, Nutrition - Education/Goals Individual Counseling: Initial Assessment: Abnormal Cholesterol Levels, High Blood Pressure, Overweight/Obesity, Diabetes Cardiac Rehabilitation Goals: 1. Maintain the individual as the primary focus of care. 2. To improve the patient's quality of life. 3. Identification of cardiac risk factors and provide cardiac risk factor management. 4. Enhance the psychosocial status of the patient. 5. Reconditioning enough to allow the patient to resume customary activities. 6. Control symptoms of cardiac disease Personal Goals: Initial Assessment: Improve energy level - 4, Participate in home exercise program - 4, Improve muscle strength and endurance - 4, Improve diet and eating habits (eat healthier) - 4, Control risk factors (learn risk factor modification) - 4 Scale for measuring improvement of personal goals: Enter appropriate number in Comments. 2 = Unchanged. 3 = Slightly Better. 4 = Moderate Improvement. 5 = Met my Goal - Diagnosis & Disease Process Outcomes/Goals: Pt IDs own risk factors & lifestyle modifications by Session 10, Verbalizes symptoms of angina & response by session 3., Pt independently manages Plan/Interventions: Assist Pt to ID & engage in lifestyle modification to reduce CVD risk, Instruct on individual risk factors, Review symptoms of angina & emergency actions, Review secondary diagnosis & identify educational needs. 30 day Reassessments:: Progressing 30 day Reassessments:: Progressing - Safety Referral to Physical Therapy: No Referral to [facility] Case Management: No Fall Risk Assessed:: Yes Assistive Devices:: Cane Exercise - 60-day Assessment - Physician Prescribed Exercise Modalities: Treadmill, Airdyne, NuStep Frequency: 3x/week for 12 weeks [36 sessions] Intensity: 60-80% of age predicted maximum heart rate reserve Current METSs:: 3.0 OTHER PHYSICAL LIMITATIONS Target Heart Rate:: 97-126 Current RPE:: 11-12 Maximum Excercise HR:: 95 Resting Blood Pressure: 128/60 - CONTROLLED Maximum Exercise Blood Pressure: 150/72 EKG Type: NSR WITH RARE PVCs NOTED. - Outcomes & Goals Goals:: Verbalizes understanding of THR, RPE & goal METS by session 6, Documents in home exercise log/reports 30 min aerobic 5 day/wk by DC, Demonstrates accurate pulse taking by DC - Intervention & Plan Exercise Program Goals: Instruct on personal THR & RPE, Instruct on MET level & personal MET goal, Show patient to take own pulse /validate performance until accurate, Instruct on home exercise - 30-day Reassessments 30 day Reassessments:: Progressing - Physical Activity Home Exercise Physical Activity - Home Exercise: Safe Exercise, Warm-up, Self-monitoring, Cool-Down, Home Exercise > 30 min Daily, Sitting Time <3 hours/daily - Outcomes & Goals Outcomes/Goals: Demonstrates correct Warm-up/exercise Cool-Down (S3) if = 2.5 METs, Verbalizes symptoms of exercise intolerance by Session 3 (S3), Demonstrate safe equipment use (S3) & follows exercise prescrition (6) - Intervention & Plan Plan/Intervention: Instruct warm-up & cool-down if exercising at > 2 METs, Instruct on symptoms of exercise intolerance & actions to take, Instruct & monitor on saf, Assess intial functional capacity & safety risk - 30-day Reassessments 30 day Reassessments:: Progressing Nutrition - 60-Day Assessment - Program Goals Nutrition Program Goals: LDL <100 optimal. 100 - 129 Near optimal. 130 - 159 Borderline High. 160 - 189 High. Total Cholesterol <200 desirable. 200 - 239 Borderline High. >/= 240 High. HDL < 40 Low >/=60 High. Triglycerides <150 desirable. <199 optimal. VlDL 5 - 40. HgbA1C <7%. BMI <25 Patient has diagnosis of Hyperlipidemia (ICD E78)?: Yes - Visit Date of Assessment:: 12/19/19 Session #:: 20 - Cholesterol/Lipids Determine presence & major risk factors that modify LDL goal: Hypertension or hypertensive medication, Age men > 45 years; women >/= 55 years Outcomes/Goals: Pt IDs own risk factors & lifestyle modifications by Session 10, Verbalizes symptoms of angina & response by session 3., Pt independently manages Intervention/Plan: Instruct on personal lipid levels & lipid goals/NCEP guidelines, Instruct on cholesterol Referral to dietitian:: No - SEEN BY DIETITIAN ON 11/19/2019 30-day Reassessments:: Progressing - Diabetes (Other Core Measures) Diabetes Type: Diagnosis Type II ICD-10 E11 Insulin dependent injection/pump?: Yes Non-Insulin Dependent?: Yes Do you monitor your blood sugar at home?: Yes Referral to Diabetic Clinic:: No - SEEN ON 11/19/2019 Outcomes/Goals:: Able to state symptoms of, Able to state, Able to state Intervention/Plan:: Instruct on, Refer to, Instruct on 30-day Reassessments:: Progressing - Weight Mgt (Other Care) Not Applicable: No Height: 5 ft 4 in Weight:: 197 lb BMI: 33.7 Diagnosis Overweight/Obesity BMI> 30% ICD-10 E66: Yes Diagnosis High BMI/Morbid Obesity BMI> 35% ICD-10 Z68: No Outcomes/Goals: Pt sets, maintains & shows weight loss goal & trend during rehab Intervention/Plan: Instruct on ideal BMI & set weight loss goal w/patient, Assist pt to ID & incorporate diet changes for weight loss by S9, Encourage goal of using 250-300dcal per session for weight loss 30 day Reassessments:: Not Met - Healthy Eating Habits Will attend diet classes:: Yes Outcomes/Goals:: Consume diet rich in vegs,fruits,whole grain/high fiber,fish,lean meat, Limit sat/trans fats,cholesterol & added salts & sugars Intervention/Plan:: Assess current eating habits 30-day Reassessments:: Progressing - Education Gave educational materials for:: Signs & symptoms of hypoglycemia, Signs & symptoms of hyperglycemia, Relate diabetes to coronary artery disease, Healthy eating Medical- 60-Day Assessment - Visit Date of Eval: 12/19/19 Session #:: 22 - Medication Compliance Preventative Medication(s):: Aspirin, EMERSON inhibitor, Statin/lipid, Beta david H/O mental health issues: depression, anxiety, or addiction?: No Doesn?t believe in the benefits of treatment?: No Believes medications are unnecessary or harmful?: No Has a concern about medication side effects?: No Expresses concern over the cost of medications?: No Outcomes/Goals: Verbalizes medications,desired effect & common side effects @ DC, Pt self-reports following medication regimen, Keeps card in wallet w/medications listed by DC Interventions/plans: Instruct on medication effects & side effects, Review medication list w/patient every two weeks, Instruct importance of taking meds as ordered & assist problem solving 30-day Reassessments:: Progressing - Tobacco Use Tobacco Use: Non-smoker - Hypertension Hypertension Diagnosis:: Hypertension ICD-10 I10 Resting Blood Pressure:: 128/60 [place] [employer] Hypertension Guidelines: [place] [employer] Hypertension Guidelines. Normal BP Less than 120/80. Elevated BP 120/80. Hypertension Stage 1: BP 130-139/80-89. Hypertesnion Stage 2: BP 140 or higher/90 or higher. Hypertension Crisis: BP higher than 180/120 Peak Exercise Blood Pressure:: 150/72 Outcomes/Goals: Able to verbalize/achieve optimal blood pressure <130/80, Incorporates diet changes & exercise for blood pressure control by DC Interventions/plan: Instruct on optimal blood pressure, hypertension & medications, Instruct on effects of sodium, alcohol, stress, exercise &hypertension 30 day Reassessments:: Progressing - Tobacco Cessation Referral Smoking Cessation Referral:: No Individual Education/Counseling:: No Education Schedule Given:: Yes Psychosocial - 60-Day Assess - VIsit Date of Eval: 12/19/19 Session #:: 22 Not Applicable: Yes History of previous Mental disease:: No - Target Goals Target Goals: Assess presence or absence of depression. Using a valid screening tool, maximizes coping skills. Positive support system - Psychosocial Test Tool Used:: [employer] QOL Cardiac, PHQ-9 Questionnaire phq-9 Severity: Severity. 1-4 Minimal Depression. 5-9 Mild Depression. 10-14 Moderate Depression. 15-19 Moderately Sever Depression. 20-27 Severe Depression. Rule: - Referral to Behavioral Health PS - Interventions: Yes Attend Stress Management Classes, No Referral to Behavioral Health if PHQ-9 score >9:, No Referral to [facility], No Referral to Physician if PHQ-9 if score is 5-9: - Outcomes/Goals: See list Psychosocial Outcomes/Goals:: ID's personal stressors & 2 strategies to manage stress by discharge - Intervention/Plan: See List Interventions/Plan:: Assess stressors,coping strategies & signs of derpression on admission, Instruct/assist pt to develop coping & personal stress Mgt strategies, Instruct patient to recognize signs & symptoms of depression, Instruct patient to recog - 30-day Reassessments: 30 day Reassessments:: Progressing Patient Health Questionnaire 60-Day Re-eval Assessment 1. Little interest or pleasure in doing things: Several days 2. Feeling down, depressed, or hopeless: Not at all 3. Trouble falling or staying asleep, or sleeping too much: Several days 4. Feeling tired or having little energy: Several days 5. Poor appetite or overeating: Not at all 6. Feeling bad about yourself -- or that you are a failure or have let yourself or your family down: Not at all 7. Trouble concentrating on things, such as reading the newspaper or watching television: Several days 8. Moving or speaking so slowly that other people could have noticed. Or the opposite - being so fidgety or restless that you have been moving around a lot more than usual: Not at all 9. Thoughts that you would be better off , or of hurting yourself in some way: Not at all How difficult have these problems made it for you to do your work, take care of things at home, or get along with other people?: Not difficult at all Total Score: 4 Self-Efficacy 60-Day Re-eval Assessment We would like to know how confident you are in doing certain activities. Please select your confidence level for:: Select your confidence level for the following using the scale 1-10 where 1 is not at all confident and 10 is totally confident. Your score is the average of all 6 responses. Fatigue: How confident are you that you can keep the fatigue caused by your disease from interfering with the things you want to do? Select Number: 8 Physical Discomfort or Pain: How confident are you that you can keep the phy sical discomfort or pain of your disease from interfering with the things you want to do? Select Number: 9 Emotional Distress: How confident are you that you can keep the emotional distress caused by your disease from interfering with the things you want to do? Select Number: 8 Other Symptoms or Health Problems: How confident are you that you can keep other symptoms or health problems from interfering with the things you want to do? Select Number: 8 Different Tasks and Activities: How confident are you that you can do the different tasks and activities needed to manage your health condition so as to reduce your need to see a doctor? Select Number: 9 Medication: How confident are you that you can do things other than just taking medication to reduce how much your illness affects your everyday life? Select Number: 9 Total Score:: 8
[2019-12-19 09:21] VITALS: BP 128/60; BP 150/72; BMI 33.7
== END 2019-12-30 23:59 ==
LOC: CR 14:15
PROVIDERS: PCP Family Medicine; Referring Provider Internal Medicine Cardiovascular Disease; Visit Provider Internal Medicine Cardiovascular Disease
DX: I97.89 Other postprocedural complications and disorders of the circulatory system, not elsewhere classified (principal); I48.91 Unspecified atrial fibrillation; Z95.1 Presence of aortocoronary bypass graft; I25.10 Atherosclerotic heart disease of native coronary artery without angina pectoris; I50.30 Unspecified diastolic (congestive) heart failure; R94.39 Abnormal result of other cardiovascular function study
CPT/HCPCS: 93798

== ENCOUNTER 2019-12-31 10:46 | Outpatient (RCR) | payer OTHER, MEDICARE, SELFPAY ==
[2019-10-21 11:03] VITALS: BMI 34.3
[2019-12-19 09:21] VITALS: BMI 33.7
[2019-12-31 00:42] VITALS: BP 128/60; BP 150/72
--- NOTE | 2020-01-02 07:56 | PCM.CR.ITP ---
Exercise - Initial Assessment - Visit Date of Eval: 01/02/20 - With obvious neccessary interupption in the delivery of CR, the patient's program is on hold due to the coronovirus. The CR program has been closed for patient safety reasons.
== END 2020-01-29 23:59 ==
LOC: CR 10:46
PROVIDERS: PCP Family Medicine; Referring Provider Internal Medicine Cardiovascular Disease; Visit Provider Internal Medicine Cardiovascular Disease
DX: I97.89 Other postprocedural complications and disorders of the circulatory system, not elsewhere classified (principal); I48.91 Unspecified atrial fibrillation; Z95.1 Presence of aortocoronary bypass graft; I25.10 Atherosclerotic heart disease of native coronary artery without angina pectoris; I50.30 Unspecified diastolic (congestive) heart failure; R94.39 Abnormal result of other cardiovascular function study
CPT/HCPCS: 93798

== ENCOUNTER 2020-02-18 14:15 | Outpatient (RCR) | payer OTHER, MEDICARE, SELFPAY ==
[2019-10-21 11:03] VITALS: BMI 34.3
[2019-12-19 09:21] VITALS: BMI 33.7
[2020-01-30 00:14] VITALS: BP 128/60; BP 150/72
--- NOTE | 2020-01-30 13:24 | CR.ITP_ITS ---
Diagnosis - General Information Admitting Diagnosis: CABG Personal Learning Style:: Audio/Visual, Written Gave educational material for:: Treating Heart Disease, Emotions & Heart Disease, Stress Management & Relaxation, Sleep Disorders & Heart Disease, How The Heart Works, What it means to have Heart Disease, How Coronary Artery Disease is Diagnosed, Heart Procedures, What Heart Medications Do, Risk Factors & Modifications, Living an Active Life, Nutrition - Education/Goals Cardiac Rehabilitation Goals: 1. Maintain the individual as the primary focus of care. 2. To improve the patient's quality of life. 3. Identification of cardiac risk factors and provide cardiac risk factor management. 4. Enhance the psychosocial status of the patient. 5. Reconditioning enough to allow the patient to resume customary activities. 6. Control symptoms of cardiac disease Scale for measuring improvement of personal goals: Enter appropriate number in Comments. 2 = Unchanged. 3 = Slightly Better. 4 = Moderate Improvement. 5 = Met my Goal - Diagnosis & Disease Process Outcomes/Goals: Pt IDs own risk factors & lifestyle modifications by Session 10, Verbalizes symptoms of angina & response by session 3., Pt independently manages, Other Additional Outcomes/Goals: Plan/Interventions: Assist Pt to ID & engage in lifestyle modification to reduce CVD risk, Instruct on individual risk factors, Review symptoms of angina & emergency actions, Review secondary diagnosis & identify educational needs., Other see comment 30 day Reassessments:: Progressing 30 day Reassessments:: Progressing 30 day Reassessments:: Progressing 30 day Reassessments:: Progressing - Safety Referral to Physical Therapy: No Referral to [facility] Case Management: No Fall Risk Assessed:: Yes Assistive Devices:: Cane Exercise - 90-day Assessment - Visit Date of Eval: 01/30/20 Session #:: 28 Comments:: Pt was on hold for COVID 19 precaution. Pt is now resuming rehab. - Physician Prescribed Exercise Modalities: Treadmill, Airdyne, NuStep Frequency: 3x/week for 12 weeks [36 sessions] Intensity: 60-80% of age predicted maximum heart rate reserve Current METSs:: 3 Target Heart Rate:: 97-126 Current RPE:: 11-12 Maximum Excercise HR:: 91 Resting Blood Pressure: 116/52 Maximum Exercise Blood Pressure: 146/70 EKG Type: SR - Outcomes & Goals Goals:: Verbalizes understanding of THR, RPE & goal METS by session 6, Documents in home exercise log/reports 30 min aerobic 5 day/wk by DC, Demonstrates accurate pulse taking by DC, Other additional outcome/goals: see below - Intervention & Plan Exercise Program Goals: Instruct on personal THR & RPE, Instruct on MET level & personal MET goal, Show patient to take own pulse /validate performance until accurate, Instruct on home exercise, Other additional plan/int - 30-day Reassessments 30 day Reassessments:: Progressing - Physical Activity Home Exercise Physical Activity - Home Exercise: Safe Exercise, Warm-up, Self-monitoring, Cool-Down, Home Exercise > 30 min Daily, Sitting Time <3 hours/daily - Outcomes & Goals Outcomes/Goals: Demonstrates correct Warm-up/exercise Cool-Down (S3) if = 2.5 METs, Verbalizes symptoms of exercise intolerance by Session 3 (S3), Demonstrate safe equipment use (S3) & follows exercise prescrition (6), Other: See below - 30-day Reassessments 30 day Reassessments:: Progressing Nutrition - 90-Day Assessment - Program Goals Nutrition Program Goals: LDL <100 optimal. 100 - 129 Near optimal. 130 - 159 Borderline High. 160 - 189 High. Total Cholesterol <200 desirable. 200 - 239 Borderline High. >/= 240 High. HDL < 40 Low >/=60 High. Triglycerides <150 desirable. <199 optimal. VlDL 5 - 40. HgbA1C <7%. BMI <25 Patient has diagnosis of Hyperlipidemia (ICD E78)?: Yes - Visit Date of Assessment:: 01/30/20 Session #:: 28 - Cholesterol/Lipids Determine presence & major risk factors that modify LDL goal: Hypertension or hypertensive medication, Low HDL cholesterol <40 mg/dL*, Family history of premature CHD in Male < 55 years: female <65 yearsFa, Age men > 45 years; women >/= 55 years Outcomes/Goals: Pt IDs own risk factors & lifestyle modifications by Session 10, Verbalizes symptoms of angina & response by session 3., Pt independently manages, Other Additional Outcomes/Goals: Intervention/Plan: Advocate for lipid panel cholesterol medication if applicable, Instruct on personal lipid levels & lipid goals/NCEP guidelines, Instruct on cholesterol, Other additional plan/int Referral to dietitian:: No 30-day Reassessments:: Progressing - Diabetes (Other Core Measures) Diabetes Type: Diagnosis Type II ICD-10 E11 Fasting blood glucose:: 228 Insulin dependent injection/pump?: Yes Non-Insulin Dependent?: Yes Do you monitor your blood sugar at home?: Yes Referral to Diabetic Clinic:: No Outcomes/Goals:: Able to state symptoms of, Able to state, Able to state, Other additional Intervention/Plan:: Instruct on, Refer to, Instruct on, Other 30-day Reassessments:: Progressing - Weight Mgt (Other Care) Height: 5 ft 4 in Weight:: 87.77 kg BMI: 33.2 Outcomes/Goals: Pt sets, maintains & shows weight loss goal & trend during rehab, Other additional outcomes/goals Intervention/Plan: Instruct on ideal BMI & set weight loss goal w/patient, Assist pt to ID & incorporate diet changes for weight loss by S9, Refer to Structured Weight Loss program as appropriate, Encourage goal of using 250- 300dcal per session for weight loss, Other additional plan/interventions - Healthy Eating Habits 30-day Reassessments:: Progressing - Education Gave educational materials for:: Signs & symptoms of hypoglycemia, Signs & symptoms of hyperglycemia, Relate diabetes to coronary artery disease, Healthy eating Medical- 90-Day Assessment - Visit Date of Eval: 01/30/20 Session #:: 28 - Medication Compliance Preventative Medication(s):: Aspirin, EMERSON inhibitor, Statin/lipid, Beta david Doesn?t believe in the benefits of treatment?: No Believes medications are unnecessary or harmful?: No Has a concern about medication side effects?: No Expresses concern over the cost of medications?: No Outcomes/Goals: Verbalizes medications,desired effect & common side effects @ DC, Pt self-reports following medication regimen, Keeps card in wallet w/medications listed by DC, Other additional outcome/goals: 30-day Reassessments:: Progressing - Tobacco Use Tobacco Use: Non-smoker - Hypertension Hypertension Diagnosis:: Hypertension ICD-10 I10 Resting Blood Pressure:: 116/52 [place] [employer] Hypertension Guidelines: [place] [employer] Hypertension Guidelines. Normal BP Less than 120/80. Elevated BP 120/80. Hypertension Stage 1: BP 130-139/80-89. Hypertesnion Stage 2: BP 140 or higher/90 or higher. Hypertension Crisis: BP higher than 180/120 Peak Exercise Blood Pressure:: 146/70 Outcomes/Goals: Able to verbalize/achieve optimal blood pressure <130/80, Incorporates diet changes & exercise for blood pressure control by DC, Other additional outcomes/goals Interventions/plan: Instruct on optimal blood pressure, hypertension & medications, Instruct on effects of sodium, alcohol, stress, exercise &hyperte nsion, Other additional plan/interventions 30 day Reassessments:: Progressing - Tobacco Cessation Referral Smoking Cessation Referral:: No Individual Education/Counseling:: No Education Schedule Given:: Yes Psychosocial - 90-Day Assess - VIsit Date of Eval: 01/30/20 Session #:: 28 History of previous Mental disease:: No - Target Goals Target Goals: Assess presence or absence of depression. Using a valid screening tool, maximizes coping skills. Positive support system - Psychosocial Test Tool Used:: [employer] QOL Cardiac, PHQ-9 Questionnaire phq-9 Severity: Severity. 1-4 Minimal Depression. 5-9 Mild Depression. 10-14 Moderate Depression. 15-19 Moderately Sever Depression. 20-27 Severe Depression. Rule: - Referral to Behavioral Health PS - Interventions: Yes Attend Stress Management Classes, No Referral to Behavioral Health if PHQ-9 score >9:, No Referral to [facility] Community [facility], No Referral to Physician if PHQ-9 if score is 5-9: - Outcomes/Goals: See list Psychosocial Outcomes/Goals:: ID's personal stressors & 2 strategies to manage stress by discharge, Other Additional outcome/goals: - Intervention/Plan: See List Interventions/Plan:: Assess stressors,coping strategies & signs of derpression on admission, Instruct/assist pt to develop coping & personal stress Mgt strategies, Refer to Behavioral Health if appropriate, Refer to Physician if appropriate, Instruct patient to recognize signs & symptoms of depression, Instruct patient to recog, Other additional plan/intervention - 30-day Reassessments: 30 day Reassessments:: Progressing Patient Health Questionnaire 90-Day Re-eval Assessment 1. Little interest or pleasure in doing things: Several days 2. Feeling down, depressed, or hopeless: Not at all 3. Trouble falling or staying asleep, or sleeping too much: Several days 4. Feeling tired or having little energy: Several days 5. Poor appetite or overeating: Not at all 6. Feeling bad about yourself -- or that you are a failure or have let yourself or your family down: Not at all 7. Trouble concentrating on things, such as reading the newspaper or watching television: Several days 8. Moving or speaking so slowly that other people could have noticed. Or the opposite - being so fidgety or restless that you have been moving around a lot more than usual: Not at all 9. Thoughts that you would be better off , or of hurting yourself in some way: Not at all How difficult have these problems made it for you to do your work, take care of things at home, or get along with other people?: Not difficult at all Total Score: 4 Self-Efficacy 90-Day Re-eval Assessment We would like to know how confident you are in doing certain activities. Please select your confidence level for:: Select your confidence level for the following using the scale 1-10 where 1 is not at all confident and 10 is totally confident. Your score is the average of all 6 responses. Fatigue: How confident are you that you can keep the fatigue caused by your disease from interfering with the things you want to do? Select Number: 8 Physical Discomfort or Pain: How confident are you that you can keep the physical discomfort or pain of your disease from interfering with the things you want to do? Select Number: 9 Emotional Distress: How confident are you that you can keep the emotional distress caused by your disease from interfering with the things you want to do? Select Number: 8 Other Symptoms or Health Problems: How confident are you that you can keep other symptoms or health problems from interfering with the things you want to do? Select Number: 8 Different Tasks and Activities: How confident are you that you can do the different tasks and activities needed to manage your health condition so as to reduce your need to see a doctor? Select Number: 9 Medication: How confident are you that you can do things other than just taking medication to reduce how much your illness affects your everyday life? Select Number: 9 Total Score:: 8
[2020-01-30 13:32] VITALS: BP 116/52; BP 146/70; BMI 33.2
== END 2020-02-29 23:59 ==
LOC: CR 14:15
PROVIDERS: PCP Family Medicine; Referring Provider Internal Medicine Cardiovascular Disease; Visit Provider Internal Medicine Cardiovascular Disease
DX: I97.89 Other postprocedural complications and disorders of the circulatory system, not elsewhere classified (principal); I48.91 Unspecified atrial fibrillation; Z95.1 Presence of aortocoronary bypass graft; I25.10 Atherosclerotic heart disease of native coronary artery without angina pectoris; I50.30 Unspecified diastolic (congestive) heart failure; R94.39 Abnormal result of other cardiovascular function study
CPT/HCPCS: 93798

== ENCOUNTER → 2020-04-07 08:52 | Outpatient (CLI) | payer MEDICARE, OTHER, SELFPAY ==
[2019-10-21 11:03] VITALS: BMI 34.3
[2019-12-19 09:21] VITALS: BMI 33.7
[2020-01-30 13:32] VITALS: BMI 33.2
--- NOTE | 2020-04-07 08:54 | ECHOD_ITS ---
Reason For Study: s/p CABG Procedure This was a 2D Doppler, Color Flow transthoracic echocardiogram. Exam performed in department. Left Ventricle Normal size and thickness. The estimated ejection fraction is 65 %. Stage 2 diastolic dysfunction. No regional wall motion abnormalities noted. Right Ventricle Normal size and thickness. Normal systolic function. Atria Normal left atrium. Normal right atrium. Normal atrial septum. Mitral Valve The mitral valve is structurally normal. No prolapse or stenosis seen. Mild (1+) mitral valve insufficiency. Tricuspid Valve Normal tricuspid valve. Trivial tricuspid valve insufficiency. Right ventricular systolic pressure estimated to be 28 mmHg. Aortic Valve Trisinus/trileaflet aortic valve. Mild diffuse aortic valve thickening. There is no aortic stenosis. Pulmonic Valve Normal pulmonic valve. Great Vessels Normal aortic root. Normal arch. Normal inferior vena cava. Inferior vena cava collapse with sniff. Pericardium/Pleural No pericardial effusion. MMode/2D Measurements & Calculations LVIDd: 5.5 cm IVSd: 0.93 cm Ao root diam: 2.9 cm LVIDs: 3.9 cm LVPWd: 0.85 cm RVDd: 3.4 cm FS: 29.7 % LAV(MOD-bp): 64.1 ml LVAd ap4: 24.2 cm2 SV(MOD-sp4): 42.1 ml LAV(MOD-bp) Indexed: 33.5 ml/m2 EDV(MOD-sp4): 69.8 ml LAV(MOD-sp2): 85.7 ml EDV(sp4-el): 70.3 ml LAV(MOD-sp4): 49.1 ml LVAs ap4: 13.7 cm2 ESV(MOD-sp4): 27.7 ml ESV(sp4-el): 26.8 ml EF(MOD-sp4): 60.3 % EF(sp4-el): 61.9 % SV(sp4-el): 43.5 ml LA A4 area: 17.3 cm2 LA dimension(2D): 5.6 cm RA A4 area: 15.5 cm2 Time Measurements MV dec time: 0.15 sec Doppler Measurements & Calculations MV E max aditya: 109.4 cm/sec Lat Peak E' Aditya: 9.0 cm/sec Med Peak E' Aditya: 4.8 cm/sec MV A max aditya: 100.3 cm/sec E/E' lat: 12.1 E/E' med: 22.6 MV E/A: 1.1 MV V2 max: 136.4 cm/sec MV P1/2t max aditya: 131.6 cm/sec Ao V2 max: 118.6 cm/sec MV max P.4 mmHg MV P1/2t: 77.5 msec Ao max P.6 mmHg MV V2 mean: 93.9 cm/sec Ao V2 mean: 90.1 cm/sec MV mean P.7 mmHg MV dec slope: 497.0 cm/sec2 Ao mean P.5 mmHg MV V2 VTI: 33.3 cm MVA(P1/2t): 2.8 cm2 Ao V2 VTI: 28.5 cm LV V1 max: 76.0 cm/sec PA V2 max: 88.9 cm/sec TR max aditya: 237.5 cm/sec LV V1 max P.3 mmHg TR max P.6 mmHg Interpretation Summary The estimated ejection fraction is 65 %. Stage 2 diastolic dysfunction. Mild (1+) mitral valve insufficiency. Trivial tricuspid valve insufficiency. Right ventricular systolic pressure estimated to be 28 mmHg. There is no aortic stenosis. Compared to echo report dated 05/21/2019, no appreciable changes noted. Ordering Physician: Lance Dunne Referring Physician: Apolinar Reinoso Performed By: Tona Pal RDCS, RVT
== END ==
PROVIDERS: PCP Family Medicine; Referring Provider Internal Medicine Cardiovascular Disease; Visit Provider Internal Medicine Cardiovascular Disease
DX: I25.10 Atherosclerotic heart disease of native coronary artery without angina pectoris (principal); I48.91 Unspecified atrial fibrillation; I50.30 Unspecified diastolic (congestive) heart failure; I97.89 Other postprocedural complications and disorders of the circulatory system, not elsewhere classified; J90 Pleural effusion, not elsewhere classified; Z95.1 Presence of aortocoronary bypass graft
CPT/HCPCS: 93306

== ENCOUNTER → 2022-02-07 | Outpatient (CLI) | payer MEDICARE, OTHER, SELFPAY ==
[2020-01-30 13:32] VITALS: BMI 33.2
--- NOTE | 2022-02-07 18:26 | US_ITS ---
STUDY: RENAL ULTRASOUND - COMPLETE REASON FOR EXAM: Female, 71 years old. UTI TECHNIQUE: Ultrasound evaluation of the kidneys was performed with real-time and static ruggiero-scale imaging. COMPARISON: None. FINDINGS: RIGHT KIDNEY: Normal location of the right kidney, which is normal in size. The right kidney measures 11 x 4.9 x 5.5 cm. There is a normal cortex of the right kidney. The renal cortex measures 1.2 cm. There is no right renal mass or cyst. There are no right renal calculi. There is no right hydronephrosis. DISTAL RIGHT URETER: There is non-visualization of the distal right ureter. There is no demonstrated right ureterovesical junction calculus. Right ureteral jet is not visualized. LEFT KIDNEY: Normal location of the left kidney, which is normal in size. The left kidney measures 10.1 x 4 x 4 cm. There is a normal cortex of the left kidney. The renal cortex measures 1.1 cm. There is no left renal mass or cyst. There are no left renal calculi. There is no left hydronephrosis. DISTAL LEFT URETER: There is non-visualization of the distal left ureter. There is no demonstrated left ureterovesical junction calculus. Left ureteral jet is not visualized. BLADDER: The distended urinary bladder has a volume of 131 ml. The empty urinary bladder has a volume of 32.3 ml. There is a normal wall thickness of the distended urinary bladder. There is no demonstrated mass within the urinary bladder. There are no demonstrated bladder calculi. OTHER: There is prominence of the parapelvic fat and of the renal pyramids bilaterally, but without hydronephrosis. US/Kidney and Bladder IMPRESSION: Normal size kidneys. No hydronephrosis or wedge-shaped foci of parenchymal scarring. No bladder wall thickening or cellular debris within the urinary bladder. Postvoiding residual within the urinary bladder measures 32.3 cc. Electronically Signed: José Cleaning MD at 5:09 EDT ,
== END | disposition home or self-care (01) ==
PROVIDERS: PCP Family Medicine; Visit Provider Urology
DX: N39.0 Urinary tract infection, site not specified (principal); N28.9 Disorder of kidney and ureter, unspecified
CPT/HCPCS: 76770

== ENCOUNTER 2022-04-13 09:47 | Day surgery (SDC) | payer MEDICARE, OTHER, SELFPAY ==
[2020-01-30 13:32] VITALS: BMI 33.2
[2022-04-13] VITALS (12 sets, daily range): BP systolic 65–142; BP diastolic 44–64; PULSE 68–79; RESP 16–18; TEMP 36.4–37.3; O2SAT 94–98; BMI 33.5
[2022-04-13] MEDS: Lactated Ringers 1,000 ML 15 ML IV (10:30)
[2022-04-13 10:55] LABS: Bedside Glucose 162 mg/dL (74-106)
[2022-04-13] MEDS: Cefazolin 2 GM in 0.9% Normal Saline 100 ML IV (11:50)
--- NOTE | 2022-04-13 11:59 | PCM.OPRPT ---
Problems Associated Problem List Diagnoses (1) Urinary tract infection: (2) Erythematous bladder mucosa: Report of Operation Date of Procedure: 04/13/22 Pre-Operative Diagnosis: erythematous bladder mucosa of unknown malignant potential, urinary tract infection Post-Operative Diagnosis: Same Surgery/Procedure Performed:: Cystoscopy with bladder biopsy and fulguration Surgeon: Mariana Barrios Type of Anesthesia: MAC Specimen's removed: Bladder biopsies x 3 Description of Procedure: The patient is a 71-year-old female who was found to have erythematous bladder mucosa with unknown malignant potential on cystoscopy in the office and she now presents for biopsy for further evaluation. Informed consent was obtained. The patient was taken to the operating room and placed on the operating room table. Anesthesia monitored the head, neck, airway, IV access and vital signs throughout the case. Once anesthesia was appropriately ministered, the patient was placed into dorsolithotomy position was prepped and draped in usual sterile fashion. The cystoscope was inserted through the urethra under direct visualization into the urinary bladder. The bladder mucosa was visualized in its entirety. There were 2 cystic lesions with purulent fluid near the right ureteral orifice that were biopsied and then an area of the posterior bladder wall where there was erythema, this area was biopsied as well. The Bugbee was used for fulguration for hemostatic control and tissue treatment. The remainder of the mucosa appeared less erythematous than it was in the office, still significant amounts of mucus and debris present. At this time the patient's bladder was emptied and the cystoscope was removed. The patient was awakened and taken to the recovery room in good condition. There were no complications during this procedure. Grafts/Implants Used: None Complications None Admit VTE Documentation VTE Present on Admission: Yes VTE Mechan Device Prophylaxis: SCD's VTE Pharm Prophylaxis ordered?: Yes
--- NOTE | 2022-04-13 12:03 | DCINST_ITS ---
Discharge Instructions Diet Discharge Diet: No restrictions Activity Discharge Activity: Return to Normal Activity May resume sexual activity in: No Restrictions Dressing / Incision Call your doctor if you observe: Fever of 101 or Higher, Inability to urinate and Inability to have a bowel movement Follow Up Care Please Follow Up With: Mariana Barrios MD When: 2 weeks, call for appt Test Results: Test results from this visit will be discussed in further detail at your follow- up appointment, if applicable. Discharge Plan Admission Attending Provider: Mariana Barrios Primary Care Provider: Apolinar Reinoso Discharge Orders/Prescriptions Prescriptions: New acetaminophen-codeine [acetaminophen-codeine] 300-30 mg tablet 1 - 2 tab PO Q6H PRN PRN (Reason: Pain Score 6-10/10) 3 Days Qty: 10 0RF cephalexin [cephalexin] 500 mg capsule 500 mg PO Q12 3 Days Qty: 6 0RF Continued cholecalciferol (vitamin D3) 2,000 unit capsule 4,000 unit PO DAILY Bydureon 2 mg/0.65 mL pen injector 2 mg SC Q7D niacin 500 mg capsule, extended release 500 mg PO QHS acetaminophen 500 mg tablet 1,000 mg PO Q6H PRN (Reason: Pain) ascorbic acid (vitamin C) 500 mg capsule 500 mg PO DAILY aspirin [Adult Aspirin Regimen] 81 mg tablet,delayed release (DR/EC) 81 mg PO DAILY pantoprazole 40 mg tablet,delayed release (DR/EC) 40 mg PO DAILY Jardiance 25 mg tablet 25 mg PO DAILY insulin glargine [Lantus Solostar U-100 Insulin] 100 unit/mL (3 mL) insulin pen 14 unit subcut QPM gabapentin 100 mg capsule 100 mg PO QHS multivitamin,gj-[id number]-gthlgmwd 1 TABLET tablet 1 tab PO DAILY Label Comments: Supplement Eliquis 5 mg tablet 5 mg PO BID folic acid 1 mg tablet 1 mg PO DAILY melatonin 3 mg capsule 3 mg PO HS PRN (Reason: Sleep) metoprolol succinate 50 mg tablet extended release 24 hr 50 mg PO BID Qty: 180 3RF atorvastatin 10 mg tablet 10 mg PO DAILY Qty: 30 11RF lisinopril 20 mg tablet 10 mg PO DAILY Qty: 0 0RF furosemide 20 mg tablet 20 mg PO DAILY Qty: 90 3RF Referrals / Follow Up: Apolinar Reinoso MD [Primary Care Provider] - Disposition Disposition (needs filled in before D/C Order can be placed): Home, Self Care
--- NOTE | 2022-04-13 12:20 | BLA_PTH ---
PATIENT: NASRIN HUGGINS LOC: [facility] [place] U#:[id number] AGE/SX: 71/F ROOM: RE04/13/[address]: Dr. Mariana Barrios MD : [id number] BED: DIS: 04/13/2022 SPEC #: [id number] RECD: 04/13/22 14:25 STATUS: TAHIRA LINK #: [id number] LAURO: 04/13/22 12:[address]: Mariana Barrios DEPT: SURGICAL PATHOLOGY RECD BY: Dara Olivarez ENTERED: 04/14/22 08:06 SP TYPE: BLADDER BX OTHR DR: Dr. Apolinar Reinoso MD Tissues: Urinary bladder, NOS Procedures: Surgery Specimen Level IV HEADER OPERATION: Cyst, biopsy, fulguration, bladder tumor PRE-OP DIAGNOSIS: Urinary tract infection, bladder neoplasm, overactive bladder TISSUE SUBMITTED: Bladder biopsy MICROSCOPIC DIAGNOSIS Urinary bladder, biopsy: Chronic cystitis. See comment. AM:tyler 04/17/2022 COMMENT Detrusor muscle is not represented in the biopsy. Clinical correlation is suggested. MICROSCOPIC DESCRIPTION Slides are reviewed. GROSS DESCRIPTION Received in fixative is one container labeled with the patient's name and designated bladder biopsy. The specimen consists of three irregular fragments of luo soft tissue that in aggregate measure 0.4 x 0.2 x 0.1 cm. The specimen is totally submitted in one cassette. / SJ:tyler 04/14/2022 TC:3 CPT: 29891
== END 2022-04-13 14:18 | disposition home or self-care (01) ==
LOC: SDC 09:50 → AC 09:51
PROVIDERS: PCP Family Medicine; Referring Provider Urology; Visit Provider Urology
PROC: 0TBB8ZX Excision of Bladder, Via Natural or Artificial Opening Endoscopic, Diagnostic (ICD-10-PCS; CPT 52204; principal; 2022-04-13 12:10)
DX: N30.20 Other chronic cystitis without hematuria (principal); I13.0 Hypertensive heart and chronic kidney disease with heart failure and stage 1 through stage 4 chronic kidney disease, or unspecified chronic kidney disease; I50.30 Unspecified diastolic (congestive) heart failure; E11.40 Type 2 diabetes mellitus with diabetic neuropathy, unspecified; E11.22 Type 2 diabetes mellitus with diabetic chronic kidney disease; Z79.4 Long term (current) use of insulin; D41.4 Neoplasm of uncertain behavior of bladder; N39.41 Urge incontinence; R35.1 Nocturia; I25.10 Atherosclerotic heart disease of native coronary artery without angina pectoris; N18.9 Chronic kidney disease, unspecified; E78.5 Hyperlipidemia, unspecified; M19.90 Unspecified osteoarthritis, unspecified site; I49.3 Ventricular premature depolarization; K21.9 Gastro-esophageal reflux disease without esophagitis; Z95.5 Presence of coronary angioplasty implant and graft; Z79.01 Long term (current) use of anticoagulants; Z79.82 Long term (current) use of aspirin; Z79.84 Long term (current) use of oral hypoglycemic drugs; Z79.899 Other long term (current) drug therapy; Z87.891 Personal history of nicotine dependence
CPT/HCPCS: 52204; 00910; 82962; 88305; J7120; J2405

== ENCOUNTER → 2022-04-18 | Outpatient (CLI) | payer MEDICARE, OTHER, SELFPAY ==
[2020-01-30 13:32] VITALS: BMI 33.2
[2022-04-18 18:00] LABS: Hematocrit 36.2 % (37-47); Hemoglobin 11.3 g/dL (12.0-15.0); Mean Corp Hgb Conc 31.2 g/dL (32-36); Mean Corpuscular Hgb 28.8 pg (27.0-32.0); Mean Corpuscular Volume 92.1 fL (81-99); Mean Platelet Vol. 9.3 fl (6.2-12.0); Platelet Count 264 K/mm3 (150-450); RBC Distribution Width CV 13.5 % (11.6-14.6); RBC Distribution Width SD 45.7 fl (35.1-43.9); Red Blood Count 3.93 M/mm3 (4.2-5.4); White Blood Count 7.5 K/mm3 (4.4-11.0)
== END | disposition home or self-care (01) ==
LOC: MTLAB 16:57
PROVIDERS: PCP Family Medicine; Referring Provider Urology; Visit Provider Urology
DX: R31.0 Gross hematuria (principal)
CPT/HCPCS: 36415; 85027; 87086; 87088

== ENCOUNTER 2023-03-11 10:30 | Inpatient (IN) | payer MEDICARE, OTHER, SELFPAY ==
[2020-01-30 13:32] VITALS: BMI 33.2
[2023-03-11] VITALS (12 sets, daily range): BP systolic 90–118; BP diastolic 48–79; PULSE 59–87; RESP 14–18; TEMP 36–36.6; O2SAT 97–99; BMI 30.7; BMI 29.7
--- NOTE | 2023-03-11 10:58 | CT_ITS ---
HISTORY: abd pain and jaundice. TECHNIQUE: Helically acquired images were obtained of the abdomen and pelvis after the intravenous administration of 75mL Isovue-370. A radiation dose optimization technique was used for this scan. 402 images. COMPARISON: None. FINDINGS: LOWER CHEST: Midline sternotomy. Mild scarring in the lung bases. BOWEL: Bowel including appendix nondilated. Colonic diverticulosis with mild pericolonic stranding and wall thickening of the mid descending colon. PERITONEUM: Mild free fluid in the abdomen and pelvis. No free air or pericolonic fluid collection. LIVER/SPLEEN: Nonenlarged with subcentimeter hypodensities and multiple calcified granulomas. GALLBLADDER/BILIARY TREE: Multiple gallstones in the gallbladder with gallbladder distention, cystic duct distention, and gallbladder wall edema. Moderate-severe intrahepatic biliary ductal dilatation with a 1.7 cm common duct containing 5 mm and 7 mm densities in the distal duct. PANCREAS: Atrophic with a mildly dilated pancreatic duct and small periductal cystic lesions. KIDNEYS: Distended extrarenal pelves. Normal enhancement. ADRENAL GLANDS: No nodules. VESSELS: No abdominal aortic aneurysm. Advanced atherosclerosis of the abdominal aorta and its major branches PELVIC ORGANS: Absent uterus. Distended urinary bladder. ABDOMINAL WALL: Mild subcutaneous cutaneous edema. BONES: Degenerative change. CT/Abdomen/Pelvis W IV Cont ONLY IMPRESSION: Moderate-severe intrahepatic and extrahepatic biliary ductal dilatation with densities in the distal duct, concerning for obstructing choledocholithiasis. Cholelithiasis with gallbladder distention and gallbladder wall edema concerning for acute cholecystitis. Pancreatic atrophy with pancreatic ductal dilatation and small periductal cystic lesions. Findings may represent sequela of pancreatitis with small pseudocysts but recommend follow-up to exclude centrally obstructing mass in addition to small pancreatic cystic neoplasms. Mild diverticulitis of the mid descending colon. Mild ascites. Electronically Signed: Katy Mon MD at 12:48 EDT ,
--- NOTE | 2023-03-11 10:59 | EX.ED.DYSGE1 ---
HPI History of Present Illness Chief Complaint: General Illness Detail of Chief Complaint: Abdominal discomfort, nausea and jaundice Informant: patient Onset/Context/Timing Onset: Days Context: Gradual Onset Timing: Continuous Current Severity: Mild Maximum Severity: Mild Narrative Narrative: 72-year-old female history of diabetes, A-fib, CAD, chronic kidney disease and on the blood thinner Eliquis. The only abdominal pelvic surgery she is ever had was a hysterectomy. States she has had some abdominal discomfort with nausea and decreased oral intake for a week. This past Sunday about 6 days ago she became jaundiced. No history of gallbladder, liver or pancreas disease. She is having no difficulty urinating. No fever but chills. No melena. Prior similar symptoms: No Recent Illness/Hospitalization: No PFSH PFSH Medical History Ambulates with cane Arthritis Atherosclerosis of coronary artery without angina pectoris Bilateral pleural effusion Carotid artery disease Cellulitis of left leg Chronic kidney disease Diabetes mellitus, type II Diabetic neuropathy Diastolic congestive heart failure Erythematous bladder mucosa Essential hypertension Former smoker Gastric reflux History of arthritis Hyperlipidemia Left ventricular hypertrophy Nonrheumatic mitral (valve) insufficiency Nonrheumatic tricuspid (valve) insufficiency Postoperative atrial fibrillation PVCs (premature ventricular contractions) Secondary pulmonary hypertension Urinary tract infection Wears dentures Wears glasses Home Medications multivitamin,lz-[id number]-[id number] 27 mg-0.4 mg tablet 1 tab PO DAILY 09/07/13 [History Last Taken 09/07/13 03:00] cholecalciferol (vitamin D3) 50 mcg (2,000 unit) capsule 4,000 unit PO DAILY 04/30/19 [History Last Taken Unknown] niacin 500 mg capsule,extended release 500 mg PO QHS 05/06/19 [History Last Taken Unknown] ascorbic acid (vitamin C) 500 mg capsule 500 mg PO DAILY 09/03/19 [History Last Taken Unknown] aspirin 81 mg tablet,delayed release (Adult Aspirin Regimen) 81 mg PO DAILY 09/03/19 [History Last Taken Unknown] folic acid 1 mg tablet 1 mg PO DAILY 09/30/19 [History Last Taken Unknown] melatonin 3 mg capsule 3 mg PO HS PRN Sleep 09/30/19 [History Last Taken Unknown] metoprolol succinate 50 mg tablet,extended release 24 hr 50 mg PO BID this is a dose increase for tachycardia and htn #180 tabs 06/22/21 [Rx Last Taken 04/13/22 07:00] empagliflozin 25 mg tablet (Jardiance) 25 mg PO DAILY 04/06/22 [History Last Taken Unknown] gabapentin 100 mg capsule 100 mg PO QHS 04/06/22 [History Last Taken Unknown] insulin glargine 100 unit/mL (3 mL) subcutaneous pen (Lantus Solostar U-100 Insulin) 20 unit subcut QPM 04/06/22 [History Last Taken Unknown] pantoprazole 40 mg tablet,delayed release 40 mg PO DAILY 04/06/22 [History Last Taken 04/13/22 07:00] dulaglutide 3 mg/0.5 mL subcutaneous pen injector (Trulicity) 3 mg subcut QWEEK 10/31/22 [History Last Taken Unknown] apixaban 5 mg tablet (Eliquis) 5 mg PO BID 03/11/23 [History Last Taken Unknown] atorvastatin 10 mg tablet 10 mg PO QHS 03/11/23 [History Last Taken Unknown] furosemide 20 mg tablet 40 mg PO DAILY 03/11/23 [History Last Taken Unknown] lisinopril 20 mg tablet 10 mg PO DAILY 03/11/23 [History Last Taken Unknown] Allergy/AdvReac Type Severity Reaction Status Date / Time pioglitazone HCl [From [employer]] Allergy Swelling Verified 03/11/23 10:32 Family History Mother COPD (chronic obstructive pulmonary disease) Hypertension CAD (coronary artery disease) Sister Hypertension Diabetes Surgical History History of cataract removal with insertion of prosthetic lens History of colonoscopy History of coronary artery bypass graft x 3 (~08/12/19) History of laparoscopic-assisted vaginal hysterectomy History of left heart catheterization (06/11/19) History of right-sided carotid endarterectomy (12/13/11) History of shoulder surgery History of tonsillectomy Stented coronary artery (08/19/07) Social History Smoking Status: Former smoker quit date: 05/01/02 pack-years: 40 how long ago did patient quit smokin years ago alcohol intake: current alcohol intake frequency: holidays/special occasions only substance use type: does not use caffeine: Yes Type: coffee Number of servings: 12 additional social history: Works at [employer] ROS ROS ED ROS Narrative Nausea, abdominal discomfort and jaundice. Review of Systems ROS Unobtainable: Denies due to encephalopathy Constitutional Constitutional ED: Reports chills; Denies fever(s) Eyes Eyes: Denies blurry vision ENT ENT ED: Denies ear pain Cardiovascular Cardiovascular: Denies chest pain Respiratory/Chest Respiratory/Chest: Denies cough or dyspnea Gastrointestinal Gastrointestinal: Reports abdominal pain and nausea Genitourinary Genitourinary ED: Denies dysuria or hematuria Musculoskeletal Musculoskeletal: Denies arthralgias Integumentary Denies abscess Neurologic Neurologic: Denies headache(s) Psychiatric Psychiatric: Denies anxiety or depression Endocrine Endocrinology: Denies cold intolerance Hematologic/Lymphatic Hematologic/Lymphatic: Reports none Allergic/Immunologic Allergic/Immunologic ED: Denies mouth swelling, tongue swelling or urticaria EXAM Physical Exam Narrative Exam Narrative: 72-year-old female vital signs are stable her initial blood pressure was 90/56 however when I entered the room is 119/70. She does not look septic. HEENT exam jaundice. Scleral icterus. Dry mucous membranes. Neck nontender. Lungs clear. Heart regular rhythm rate about 85. Abdomen soft nondistended normal bowel sounds no peritoneal signs. Minimal tenderness. No obvious mass. No obstruction. Moving all 4 extremities. Skin is jaundiced. Neurologically she is awake and alert. No focal motor deficits. Const Vital Signs: 03/11/23 10:32 03/11/23 12:05 03/11/23 10:34 Temperature 96.8 F L 97.9 F Temperature Source Temporal Temporal Pulse Rate 84 59 L Respiratory Rate 16 14 Respiratory Effort Normal Non-Labored Respiratory Pattern Normal Blood Pressure 90/56 L 91/67 Blood Pressure Mean 67 75 Pulse Ox 98 98 Oxygen Delivery Method Room Air Room Air 03/11/23 11:34 03/11/23 12:00 03/11/23 13:00 Temperature 97.9 F 97.8 F 97.9 F Temperature Source Temporal Temporal Temporal Pulse Rate 64 62 84 Respiratory Rate 16 14 14 Respiratory Effort Respiratory Pattern Blood Pressure 95/66 110/76 112/70 Blood Pressure Mean 75 87 84 Pulse Ox 99 98 99 Oxygen Delivery Method Room Air Room Air Room Air Positive well nourished and well developed; Negative for cachectic, contractures or unkempt General Appearance ED: well developed and NAD; Negative for unkempt, cachectic, contractures, cyanotic or diaphoretic Nutritional Appearance: Negative for cachectic HEENT Reports dry mucous membranes; Denies moist mucous membranes Negative for trauma or tenderness Mouth ED: Yes dry mucous membranes Mouth: dry mucous membranes Eyes PERRL and EOMs intact bilaterally General Eye ED: Yes scleral icterus; Negative for pale conjunctiva Neck no lymphadenopathy, supple and no JVD General: Negative for tenderness Lymph Lymphatic: Negative for other Chest Wall inspection of chest normal and palpation of chest normal Resp normal respiratory effort and clear to auscultation bilaterally Effort and Inspection: Negative for retractions Auscultation: Negative for rales, rhonchi or wheezes Cardio regular rate, regular rhythm, S1 normal heart sound, S2 normal heart sound and no murmurs GI normal to inspection, nondistended, normoactive bowel sounds, non-distended and no masses; Negative for non-tender Inspection: Negative for abdominal distention Auscultation: normoactive bowel sounds Palpation: soft and tender; Negative for guarding or rebound tenderness present Back/Spine no CVA tenderness General Back: Negative for CVA tenderness or other Cervical Spine: Negative for cervical spine tenderness Thoracic Spine / Upper Back: Negative for thoracic spinal tenderness Lumbar Spine / Lower Back: Negative for lumbar spinal tenderness Extremity normal to inspection General Extremety ED: Negative for edema or tenderness General Extremity: Negative for edema Neuro oriented x3 and CN's II-XII intact bilaterally Sensorium / Orientation: alert; Negative for orientation impaired, lethargic or stuporous Motor Exam: strength 5/5 throughout Psych mental status grossly normal Appearance: Negative for unkempt Attitude: No agitated Mood & Affect: Negative for depressed, anxious or tearful Skin no rashes or lesions noted, no wounds and skin turgor normal General Skin Exam: elasticity normal and jaundice Lesions: No lesion noted Rashes: No rashes noted Trauma: Negative for abrasion Wounds: Negative for wounds noted MDM MDM MDM Narrative Medical decision making narrative: 72-year-old female with jaundice, nausea, abdominal discomfort and dehydration. She will be treated with IV fluids. Zofran for nausea morphine for pain. CAT scan and labs. Concern is for biliary obstruction caused by either gallstones, pancreatic mass or other etiologies. Repeat exam patient doing well. She has received IV Zosyn. I have already spoken with general surgery on-call, Dr. Shadi Guevara. He is reviewing the patient's CAT scan results and they will determine treatment plan. I have already discussed test results with patient and family. History & Record Review Discussion w/independent historian: Patient and Family Lab Data Attestation: I reviewed the patient's lab results. Lab results narrative: CBC shows normal white count 7.7. H&H 11.8 and 34 with her baseline anemia. Platelets 307. CMP showed a sodium 133 gap of 10. BUN and creatinine 27 and 1.1. Glucose 75. Liver enzymes are significantly elevated with a total bilirubin of 19.6. AST of 1453, ALT is 791. Alk phos of 1804 all consistent with acute biliary obstruction. Amylase and lipase are both normal. Labs: Laboratory Results - last 24 hr 03/11/23 03/11/23 10:53 10:53 WBC 7.7 RBC 3.95 L Hgb 11.8 L Hct 34.2 L MCV 86.6 MCH 29.9 MCHC 34.5 RDW Std Deviation 56.6 H RDW Coeff of Jo Ann 18.2 H Plt Count 307 MPV 9.8 Immature Gran % (Auto) 0.300 Neut % (Auto) 72.1 H Lymph % (Auto) 14.1 L Ritchie % (Auto) 12.8 H Eos % (Auto) 0.4 Baso % (Auto) 0.3 Absolute Neuts (auto) 5.6 Absolute Lymphs (auto) 1.09 Nucleated RBC % 0 Sodium 133 L Potassium 3.5 Chloride 100 Carbon Dioxide 23.0 Anion Gap 10 BUN 27 H Creatinine 1.18 H Est GFR (MDRD) Af Amer 58 L Est GFR (MDRD) Non-Af 48 L BUN/Creatinine Ratio 22.9 H Glucose 75 Calcium 8.2 L Total Bilirubin 19.60 H* AST 1453 H ALT 791 H Alkaline Phosphatase 1804 H Total Protein 5.2 L Albumin 2.1 L Globulin 3.1 Albumin/Globulin Ratio 0.7 L Amylase 26 Lipase 42 Radiography Diagnostic Testing: Clinical Impression(s) from Imaging Studies Abdomen/Pelvis CT 03/11/23 10:58 IMPRESSION: Moderate-severe intrahepatic and extrahepatic biliary ductal dilatation with densities in the distal duct, concerning for obstructing choledocholithiasis. Cholelithiasis with gallbladder distention and gallbladder wall edema concerning for acute cholecystitis. Pancreatic atrophy with pancreatic ductal dilatation and small periductal cystic lesions. Findings may represent sequela of pancreatitis with small pseudocysts but recommend follow-up to exclude centrally obstructing mass in addition to small pancreatic cystic neoplasms. Mild diverticulitis of the mid descending colon. Mild ascites. Electronically Signed: Katy Mon MD at 12:48 EDT Reading Location ID and State: [facility] / [place] Tel , Service support , Discharge Plan Triage Chief Complaint: General Illness Other Complaint: Abd Pain Hypotension ED Provider: Aden Hill Dx/Rx/DC Orders Clinical Impression: Jaundice, Acute cholecystitis, Choledocholithiasis, History of diabetes mellitus, History of atrial fibrillation, Chronic anticoagulation Prescriptions: No Action cholecalciferol (vitamin D3) 2,000 unit capsule 4,000 unit PO DAILY niacin 500 mg capsule, extended release 500 mg PO QHS ascorbic acid (vitamin C) 500 mg capsule 500 mg PO DAILY aspirin [Adult Aspirin Regimen] 81 mg tablet,delayed release (DR/EC) 81 mg PO DAILY pantoprazole 40 mg tablet,delayed release (DR/EC) 40 mg PO DAILY Jardiance 25 mg tablet 25 mg PO DAILY insulin glargine [Lantus Solostar U-100 Insulin] 100 unit/mL (3 mL) insulin pen 20 unit subcut QPM gabapentin 100 mg capsule 100 mg PO QHS Trulicity 3 mg/0.5 mL pen injector 3 mg subcut QWEEK Rx Instructions: SUNDAY multivitamin,il-hzsp-vmtpaonw 1 TABLET tablet 1 tab PO DAILY Label Comments: Supplement atorvastatin 10 mg tablet 10 mg PO QHS lisinopril 20 mg tablet 10 mg PO DAILY furosemide 20 mg tablet 40 mg PO DAILY Eliquis 5 mg tablet 5 mg PO BID folic acid 1 mg tablet 1 mg PO DAILY melatonin 3 mg capsule 3 mg PO HS PRN (Reason: Sleep) metoprolol succinate 50 mg tablet extended release 24 hr 50 mg PO BID Qty: 180 3RF Primary Care Provider: Apolinar Reinoso Referrals: Apolinar Reinoso MD [Primary Care Provider] - Disposition Disposition: Acute Care [facility]
[2023-03-11 11:07] LABS: Absolute Lymphocyte Count 1.09 X10^3/uL (0.83-4.51); Absolute Neutrophil Count 5.6 X10^3/uL (2.0-7.7); Basophil# 0.02 X10^3/uL; Basophil% 0.3 % (0-1); Eosinophil# 0.03 X10^3/uL; Eosinophils% 0.4 % (0-5); Hematocrit 34.2 % (37-47); Hemoglobin 11.8 g/dL (12.0-15.0); Lymphocyte # 1.09 X10^3/ul (0.83-4.51); Lymphocyte % 14.1 % (19-41); Mean Corp Hgb Conc 34.5 g/dL (32-36); Mean Corpuscular Hgb 29.9 pg (27.0-32.0); Mean Corpuscular Volume 86.6 fL (81-99); Mean Platelet Vol. 9.8 fl (6.2-12.0); Monocyte# 0.99 X10^3/uL; Monocyte% 12.8 % (0-10); NRBC Flagged by Analyzer 0 % (0-5); Neutrophil # 5.58 X10^3/uL (2.7-7.7); Neutrophil % 72.1 % (47-70); Platelet Count 307 K/mm3 (150-450); RBC Distribution Width CV 18.2 % (11.6-14.6); RBC Distribution Width SD 56.6 fl (35.1-43.9); Red Blood Count 3.95 M/mm3 (4.2-5.4); White Blood Count 7.7 K/mm3 (4.4-11.0)
[2023-03-11] MEDS: 0.9% Normal Saline 1,000 ML 1000 ML IV (11:36)
[2023-03-11] MEDS: Ondansetron 4 MG/2 ML Vial IV (11:37)
[2023-03-11] MEDS: fentaNYL 100 MCG/2 ML Ampul 50 MCG IV (11:37)
[2023-03-11 11:59] LABS: ALB/GLOB Ratio 0.7 RATIO (0.9-2.4); AST(SGOT) 1453 U/L (15-37); Alanine Aminotransfer ALT/SGPT 791 U/L (13-56); Albumin, Serum 2.1 g/dL (3.2-5.0); Alkaline Phosphatase 1804 U/L (45-117); Amylase 26 U/L (25-115); Anion Gap 10 (5-15); BUN 27 mg/dL (7-18); BUN/Creat Ratio 22.9 RATIO (10-20); Calcium,Total 8.2 mg/dL (8.5-10.1); Chloride 100 mmol/L (98-107); Creatinine, Serum 1.18 mg/dL (0.55-1.02); EST Glomerular Filtration Rate 48 mL/min (>60); Est Glom Filt Rate - Afr Amer 58 mL/min (>60); Globulin 3.1 g/dL (2.2-4.2); Glucose 75 mg/dL (74-106); Lipase 42 U/L (13-75); Potassium 3.5 mmol/L (3.5-5.1); Protein, Total 5.2 g/dL (6.4-8.2); Sodium Level 133 mmol/L (136-145)
--- NOTE | 2023-03-11 12:00 | ED.RN ---
LAB CALLED CRITICAL OF BOBBY OF 19.6. DR GRAF
--- NOTE | 2023-03-11 15:40 | EX.PCM.CON.S ---
Assessment & Plan Assessment/Plan (1) Jaundice: (2) Acute cholecystitis: PLAN: Plan Patient came in with jaundice and epigastric pain. The patient came in with bilirubin of 20. CT scan showed markedly dilated intra and extrahepatic ducts with gallstones and some filling defect in the distal common bile duct. They would be fairly unusual to have choledocholithiasis because of bilirubin and AST and alk phos that is so elevated. I discussed her CT findings with her. I recommend admitting the patient to the medicine service and consulting GI for ERCP for tomorrow. Patient is on Eliquis and I would recommend holding that immediately. She can have clear liquids today and be n.p.o. after midnight. After ERCP I can perform cholecystectomy during this admission. If ERCP is unable to be performed I would recommend cholecystostomy tube for decompression and treatment of the acute cholecystitis and obstruction with elective ERCP or rendezvous technique at an outside hospital. I am also still considering placing cholecystostomy tube due to the length of her symptoms. Patient reports that the symptoms started last Sunday with the jaundice which likely means her obstruction started last . Without amount of inflammation she may be better off having a cholecystostomy tube to allow the gallbladder to cool down and taking her gallbladder out at a later date. I will discuss treatment plan with GI tomorrow. Shadi Guevara MD Pager: [facility] [address] [place] [address], [address] [place] [address] Office: HPI Consult Data Date of Consult: 03/11/23 HPI Narrative HPI Narrative: NASRIN HUGGINS, is a 72 F who presents with jaundice. Patient reports the jaundice started on Sunday. Today is Sunday. Patient reports that she is also had epigastric pain and she is diabetic. Patient reports no nausea or vomiting. She does have chills but no fevers. [facility] Medical History Ambulates with cane Arthritis Atherosclerosis of coronary artery without angina pectoris Bilateral pleural effusion Carotid artery disease Cellulitis of left leg Chronic kidney disease Diabetes mellitus, type II Diabetic neuropathy Diastolic congestive heart failure Erythematous bladder mucosa Essential hypertension Former smoker Gastric reflux History of arthritis Hyperlipidemia Left ventricular hypertrophy Nonrheumatic mitral (valve) insufficiency Nonrheumatic tricuspid (valve) insufficiency Postoperative atrial fibrillation PVCs (premature ventricular contractions) Secondary pulmonary hypertension Urinary tract infection Wears dentures Wears glasses Home Medications multivitamin,rg-mexa-bmdzwxki 27 mg-0.4 mg tablet 1 tab PO DAILY 09/07/13 [History Last Taken 09/07/13 03:00] cholecalciferol (vitamin D3) 50 mcg (2,000 unit) capsule 4,000 unit PO DAILY 04/30/19 [History Last Taken Unknown] niacin 500 mg capsule,extended release 500 mg PO QHS 05/06/19 [History Last Taken Unknown] ascorbic acid (vitamin C) 500 mg capsule 500 mg PO DAILY 09/03/19 [History Last Taken Unknown] aspirin 81 mg tablet,delayed release (Adult Aspirin Regimen) 81 mg PO DAILY 09/03/19 [History Last Taken Unknown] folic acid 1 mg tablet 1 mg PO DAILY 09/30/19 [History Last Taken Unknown] melatonin 3 mg capsule 3 mg PO HS PRN Sleep 09/30/19 [History Last Taken Unknown] metoprolol succinate 50 mg tablet,extended release 24 hr 50 mg PO BID this is a dose increase for tachycardia and htn #180 tabs 06/22/21 [Rx Last Taken 04/13/22 07:00] empagliflozin 25 mg tablet (Jardiance) 25 mg PO DAILY 04/06/22 [History Last Taken Unknown] gabapentin 100 mg capsule 100 mg PO QHS 04/06/22 [History Last Taken Unknown] insulin glargine 100 unit/mL (3 mL) subcutaneous pen (Lantus Solostar U-100 Insulin) 20 unit subcut QPM 04/06/22 [History Last Taken Unknown] pantoprazole 40 mg tablet,delayed release 40 mg PO DAILY 04/06/22 [History Last Taken 04/13/22 07:00] dulaglutide 3 mg/0.5 mL subcutaneous pen injector (Trulicity) 3 mg subcut QWEEK 10/31/22 [History Last Taken Unknown] apixaban 5 mg tablet (Eliquis) 5 mg PO BID 03/11/23 [History Last Taken Unknown] atorvastatin 10 mg tablet 10 mg PO QHS 03/11/23 [History Last Taken Unknown] furosemide 20 mg tablet 40 mg PO DAILY 03/11/23 [History Last Taken Unknown] lisinopril 20 mg tablet 10 mg PO DAILY 03/11/23 [History Last Taken Unknown] Allergy/AdvReac Type Severity Reaction Status Date / Time pioglitazone HCl [From Actos] Allergy Swelling Verified 03/11/23 10:32 Family History Mother COPD (chronic obstructive pulmonary disease) Hypertension CAD (coronary artery disease) Sister Hypertension Diabetes Surgical History History of cataract removal with insertion of prosthetic lens History of colonoscopy History of coronary artery bypass graft x 3 (~08/12/19) History of laparoscopic-assisted vaginal hysterectomy History of left heart catheterization (06/11/19) History of right-sided carotid endarterectomy (12/13/11) History of shoulder surgery History of tonsillectomy Stented coronary artery (08/19/07) Social History Smoking Status: Former smoker quit date: 05/01/02 pack-years: 40 how long ago did patient quit smokin years ago alcohol intake: current alcohol intake frequency: holidays/special occasions only substance use type: does not use caffeine: Yes Type: coffee Number of servings: 12 additional social history: Works at [employer] Constitutional Constitutional: Reports anorexia and chills; Denies fatigue or fever(s) Eyes Eyes: Denies blurry vision ENT HEENT: Denies abnormal hearing Cardiovascular Cardiovascular: Denies chest pain Respiratory/Chest Respiratory/Chest: Denies cough or dyspnea Gastrointestinal Gastrointestinal: Reports abdominal pain; Denies coffee ground emesis, constipation, diarrhea, melena, nausea, rectal bleeding or vomiting Genitourinary Genitourinary: Denies change in urinary stream Musculoskeletal Musculoskeletal: Denies abnormal gait Integumentary Integumentary: Reports jaundice; Denies new lesions Neurologic Neurologic: Denies abnormal gait Psychiatric Psychiatric: Denies anxiety Endocrine Endocrinology: Denies heat intolerance Hematologic/Lymphatic Hematologic/Lymphatic: Reports easy bleeding Physical Exam Const alert and oriented x3 HEENT normocephalic Eyes PERRL Resp normal respiratory effort Cardio Rate: regular rate Rhythm: regular rhythm GI soft to palpation Palpation: tender RUQ Extremity normal to inspection Skin Skin Narrative: Patient is diffusely jaundiced Neuro CN's II-XII intact bilaterally Lab / Micro Data Result Diagrams: 03/11/23 10:53 03/11/23 10:53 Labs: Laboratory Results - last 24 hr 03/11/23 10:53: WBC 7.7, RBC 3.95 L, Hgb 11.8 L, Hct 34.2 L, MCV 86.6, MCH 29.9, MCHC 34.5, RDW Std Deviation 56.6 H, RDW Coeff of Jo Ann 18.2 H, Plt Count 307, MPV 9.8, Immature Gran % (Auto) 0.300, Neut % (Auto) 72.1 H, Lymph % (Auto) 14.1 L, Lane % (Auto) 12.8 H, Eos % (Auto) 0.4, Baso % (Auto) 0.3, Absolute Neuts (auto) 5.6, Absolute Lymphs (auto) 1.09, Nucleated RBC % 0 03/11/23 10:53: Sodium 133 L, Potassium 3.5, Chloride 100, Carbon Dioxide 23.0, Anion Gap 10, BUN 27 H, Creatinine 1.18 H, Est GFR (MDRD) Af Amer 58 L, Est GFR (MDRD) Non-Af 48 L, BUN/Creatinine Ratio 22.9 H, Glucose 75, Calcium 8.2 L, Total Bilirubin 19.60 H*, AST 1453 H, ALT 791 H, Alkaline Phosphatase 1804 H, Total Protein 5.2 L, Albumin 2.1 L, Globulin 3.1, Albumin/Globulin Ratio 0.7 L, Amylase 26, Lipase 42 Radiology Impression Abdomen/Pelvis CT 03/11/23 10:58 IMPRESSION: Moderate-severe intrahepatic and extrahepatic biliary ductal dilatation with densities in the distal duct, concerning for obstructing choledocholithiasis. Cholelithiasis with gallbladder distention and gallbladder wall edema concerning for acute cholecystitis. Pancreatic atrophy with pancreatic ductal dilatation and small periductal cystic lesions. Findings may represent sequela of pancreatitis with small pseudocysts but recommend follow-up to exclude centrally obstructing mass in addition to small pancreatic cystic neoplasms. Mild diverticulitis of the mid descending colon. Mild ascites. Electronically Signed: Katy Mon MD at 12:48 EDT ,
--- NOTE | 2023-03-11 16:45 | HP.PCM.HOS_ITS ---
HPI - General General Date of Admission: 03/11/23 HPI Narrative NASRIN HUGGINS, is a 72 F who presents to the hospital with right upper quadrant abdominal pain and jaundice. She states that she started noticing some discomfort over the weekend but did not start getting bad until about Sunday or of this week. She and her family also started noticing yellowish discoloration to her skin and eyes. When she presented to the ER she was found to have significant jaundice and her bilirubin was elevated almost 20. CT scan of her abdomen and pelvis showed extensive intra and extrahepatic ductal dilatation. Lipase was normal with no signs of pancreatitis and most of her pain is in her right upper quadrant. FORMERLY [facility], [facility] Medical History Ambulates with cane Arthritis Atherosclerosis of coronary artery without angina pectoris Bilateral pleural effusion Carotid artery disease Cellulitis of left leg Chronic kidney disease Diabetes mellitus, type II Diabetic neuropathy Diastolic congestive heart failure Erythematous bladder mucosa Essential hypertension Former smoker Gastric reflux History of arthritis Hyperlipidemia Left ventricular hypertrophy Nonrheumatic mitral (valve) insufficiency Nonrheumatic tricuspid (valve) insufficiency Postoperative atrial fibrillation PVCs (premature ventricular contractions) Secondary pulmonary hypertension Urinary tract infection Wears dentures Wears glasses Home Medications multivitamin,[id number]-kytt-[id number] 27 mg-0.4 mg tablet 1 tab PO DAILY 09/07/13 [History Last Taken 09/07/13 03:00] cholecalciferol (vitamin D3) 50 mcg (2,000 unit) capsule 4,000 unit PO DAILY 04/30/19 [History Last Taken Unknown] niacin 500 mg capsule,extended release 500 mg PO QHS 05/06/19 [History Last Taken Unknown] ascorbic acid (vitamin C) 500 mg capsule 500 mg PO DAILY 09/03/19 [History Last Taken Unknown] aspirin 81 mg tablet,delayed release (Adult Aspirin Regimen) 81 mg PO DAILY 09/03/19 [History Last Taken Unknown] folic acid 1 mg tablet 1 mg PO DAILY 09/30/19 [History Last Taken Unknown] melatonin 3 mg capsule 3 mg PO HS PRN Sleep 09/30/19 [History Last Taken Unknown] metoprolol succinate 50 mg tablet,extended release 24 hr 50 mg PO BID this is a dose increase for tachycardia and htn #180 tabs 06/22/21 [Rx Last Taken 04/13/22 07:00] empagliflozin 25 mg tablet (Jardiance) 25 mg PO DAILY 04/06/22 [History Last Taken Unknown] gabapentin 100 mg capsule 100 mg PO QHS 04/06/22 [History Last Taken Unknown] insulin glargine 100 unit/mL (3 mL) subcutaneous pen (Lantus Solostar U-100 Insulin) 20 unit subcut QPM 04/06/22 [History Last Taken Unknown] pantoprazole 40 mg tablet,delayed release 40 mg PO DAILY 04/06/22 [History Last Taken 04/13/22 07:00] dulaglutide 3 mg/0.5 mL subcutaneous pen injector (Trulicity) 3 mg subcut QWEEK 10/31/22 [History Last Taken Unknown] apixaban 5 mg tablet (Eliquis) 5 mg PO BID 03/11/23 [History Last Taken Unknown] atorvastatin 10 mg tablet 10 mg PO QHS 03/11/23 [History Last Taken Unknown] furosemide 20 mg tablet 40 mg PO DAILY 03/11/23 [History Last Taken Unknown] lisinopril 20 mg tablet 10 mg PO DAILY 03/11/23 [History Last Taken Unknown] Allergy/AdvReac Type Severity Reaction Status Date / Time pioglitazone HCl [From Actos] Allergy Swelling Verified 03/11/23 10:32 Family History Mother COPD (chronic obstructive pulmonary disease) Hypertension CAD (coronary artery disease) Sister Hypertension Diabetes Surgical History History of cataract removal with insertion of prosthetic lens History of colonoscopy History of coronary artery bypass graft x 3 (~08/12/19) History of laparoscopic-assisted vaginal hysterectomy History of left heart catheterization (06/11/19) History of right-sided carotid endarterectomy (12/13/11) History of shoulder surgery History of tonsillectomy Stented coronary artery (08/19/07) Social History Smoking Status: Former smoker quit date: 05/01/02 pack-years: 40 how long ago did patient quit smokin years ago alcohol intake: current alcohol intake frequency: holidays/special occasions only substance use type: does not use caffeine: Yes Type: coffee Number of servings: 12 additional social history: Works at [employer] Constitutional Constitutional: Reports chills; Denies fatigue, fever(s) or malaise Eyes Eyes: Denies blurry vision ENT HEENT: Denies headache(s) or nasal discharge Cardiovascular Cardiovascular: Denies chest pain, dyspnea on exertion or syncope Respiratory/Chest Respiratory/Chest: Denies cough, shortness of breath at rest or shortness of breath with exertion Gastrointestinal Gastrointestinal: Reports abdominal pain; Denies constipation, diarrhea, nausea or vomiting Genitourinary Genitourinary: Denies dysuria Integumentary Integumentary: Reports jaundice Neurologic Neurologic: Denies focal weakness, numbness or tremor(s) Psychiatric Psychiatric: Denies anxiety or depression Vital Signs Vital Signs Vital Signs: 03/11/23 10:32 03/11/23 12:05 03/11/23 10:34 Temperature 96.8 F L 97.9 F Temperature Source Temporal Temporal Pulse Rate 84 59 L Respiratory Rate 16 14 Respiratory Effort Normal Non-Labored Respiratory Pattern Normal Blood Pressure 90/56 L 91/67 Blood Pressure Mean 67 75 Pulse Ox 98 98 Oxygen Delivery Method Room Air Room Air 03/11/23 11:34 03/11/23 12:00 03/11/23 13:00 Temperature 97.9 F 97.8 F 97.9 F Temperature Source Temporal Temporal Temporal Pulse Rate 64 62 84 Respiratory Rate 16 14 14 Respiratory Effort Respiratory Pattern Blood Pressure 95/66 110/76 112/70 Blood Pressure Mean 75 87 84 Pulse Ox 99 98 99 Oxygen Delivery Method Room Air Room Air Room Air Weight Weight: 173 lb 1.006 oz Body Mass Index (BMI) 30.7 Physical Exam Narrative General: Alert, Oriented x3, Cooperative, No apparent distress HEENT: Atraumatic, PERRLA, EOMI, Normocephalic, scleral icterus Oral: Moist Mucosa Neck: Supple, No JVD Lungs: Diminished, Normal air movement, No rhonchi, No wheeze, No rales Cardiovascular: Regular rate, Regular Rhythm, Normal S1, Normal S2, No murmurs Abdomen: Soft, right upper quadrant tender, Non-Distended, No Hepato- splenomegaly Extremities: No edema, Capillary Refill Less than 3 Seconds Skin: Jaundice Musculoskeletal: No Tenderness to Palpation of Joints or Extremities Neurological: Cranial nerves II-XII grossly intact, Motor Exam 5/5 strength throughout, Sensory exam intact to light touch and pain Psych/Mental Status: Normal Affect, Appropriate Results Lab / Micro Data Result Diagrams: 03/11/23 10:53 03/11/23 10:53 Labs: Laboratory Results - last 24 hr 03/11/23 10:53: WBC 7.7, RBC 3.95 L, Hgb 11.8 L, Hct 34.2 L, MCV 86.6, MCH 29.9, MCHC 34.5, RDW Std Deviation 56.6 H, RDW Coeff of [place] 18.2 H, Plt Count 307, MPV 9.8, Immature Gran % (Auto) 0.300, Neut % (Auto) 72.1 H, Lymph % (Auto) 14.1 L, [place] % (Auto) 12.8 H, Eos % (Auto) 0.4, Baso % (Auto) 0.3, Absolute Neuts (auto) 5.6, Absolute Lymphs (auto) 1.09, Nucleated RBC % 0 03/11/23 10:53: Sodium 133 L, Potassium 3.5, Chloride 100, Carbon Dioxide 23.0, Anion Gap 10, BUN 27 H, Creatinine 1.18 H, Est GFR (MDRD) Af Amer 58 L, Est GFR (MDRD) Non-Af 48 L, BUN/Creatinine Ratio 22.9 H, Glucose 75, Calcium 8.2 L, Total Bilirubin 19.60 H*, AST 1453 H, ALT 791 H, Alkaline Phosphatase 1804 H, Total Protein 5.2 L, Albumin 2.1 L, Globulin 3.1, Albumin/Globulin Ratio 0.7 L, Amylase 26, Lipase 42 Radiology Impression Abdomen/Pelvis CT 03/11/23 10:58 IMPRESSION: Moderate-severe intrahepatic and extrahepatic biliary ductal dilatation with densities in the distal duct, concerning for obstructing choledocholithiasis. Cholelithiasis with gallbladder distention and gallbladder wall edema concerning for acute cholecystitis. Pancreatic atrophy with pancreatic ductal dilatation and small periductal cystic lesions. Findings may represent sequela of pancreatitis with small pseudocysts but recommend follow-up to exclude centrally obstructing mass in addition to small pancreatic cystic neoplasms. Mild diverticulitis of the mid descending colon. Mild ascites. Electronically Signed: Katy Mon MD at 12:48 EDT , Assessment & Plan Assessment/Plan (1) Choledocholithiasis: (2) Hyperbilirubinemia: PLAN: Plan 1. Choledocholithiasis with hyperbilirubinemia and jaundice ? We will plan for an ERCP tomorrow ? We will place her on Unasyn, its unclear if she has cholecystitis or not secondary to lack of fever white count ? Appreciate general surgery's assistance ? We will make her n.p.o. at midnight ? Pain management as necessary 2. CAD status post CABG and stent/HTN/HLD/A-fib ? Blood pressures are currently stable can resume her home blood pressure medications ? We will hold her Lasix secondary to being n.p.o. and being placed on IV fluids ? Hold her Eliquis secondary to intervention ? Continue with Lipitor and also hold her aspirin secondary to intervention 3. DM2 ? We will hold all of her home medication ? We will place her on sliding scale insulin secondary to being on clear liquid diet and n.p.o. after midnight ? We will monitor and make adjustments as necessary 4. GERD ? Stable ? Continue with PPI DVT: Lovenox 75 minutes was spent on direct patient care as well as chart review and collaboration with colleagues Charges/Coding Visit Charges Inpatient E&M: 80802 Init Hosp L3
[2023-03-11] MEDS: 0.9% Saline Lock 10 ML Syringe IV (17:53)
[2023-03-11] MEDS: 0.9% Normal Saline 1,000 ML 75 ML IV (17:53)
[2023-03-11 18:54] LABS: International Normalized Ratio 1.8; Partial Thromboplast Time 39.8 Seconds (24.1-36.2); Prothrombin Time (Protime)PT. 21.3 SECONDS (11.7-14.9)
--- NOTE | 2023-03-11 19:15 | CON.PCM.GI_ITS ---
HPI Consult Data Date of Consult: 03/11/23 HPI Narrative Reason for Consultation: biliary obstruction HPI Narrative: NASRIN HUGGINS, is a 72-year-old female history of diabetes, A-fib on the blood thinner Eliquis.? The only abdominal pelvic surgery she is ever had was a hysterectomy.? States she has had some abdominal discomfort with nausea and decreased oral intake for a week.? This past Sunday about 6 days ago she became jaundiced.? No history of gallbladder, liver or pancreas disease.? She is having no difficulty urinating.? No fever but chills.? No melena. She also has a coronary artery disease, status post RCA PCI/ARIANA-2006 at [facility], status post CABG (TAM to the LAD, SVG to the diagonal, SVG to the OM-2018 at [facility]), postoperative atrial fibrillation, history of diastolic mediated CHF, history of mitral valve insufficiency previously reported as mild, history of carotid artery disease status post carotid artery endarterectomy (following with [facility] peripheral vascular surgery), hyperlipidemia, and hypertension. FORMERLY [facility], LATER [facility] Medical History Ambulates with cane Arthritis Atherosclerosis of coronary artery without angina pectoris Bilateral pleural effusion Carotid artery disease Cellulitis of left leg Chronic kidney disease Diabetes mellitus, type II Diabetic neuropathy Diastolic congestive heart failure Erythematous bladder mucosa Essential hypertension Former smoker Gastric reflux History of arthritis Hyperlipidemia Left ventricular hypertrophy Nonrheumatic mitral (valve) insufficiency Nonrheumatic tricuspid (valve) insufficiency Postoperative atrial fibrillation PVCs (premature ventricular contractions) Secondary pulmonary hypertension Urinary tract infection Wears dentures Wears glasses Home Medications multivitamin,dj-[id number] 27 mg-0.4 mg tablet 1 tab PO DAILY 09/07/13 [History Last Taken 09/07/13 03:00] cholecalciferol (vitamin D3) 50 mcg (2,000 unit) capsule 4,000 unit PO DAILY 04/30/19 [History Last Taken Unknown] niacin 500 mg capsule,extended release 500 mg PO QHS 05/06/19 [History Last Taken Unknown] ascorbic acid (vitamin C) 500 mg capsule 500 mg PO DAILY 09/03/19 [History Last Taken Unknown] aspirin 81 mg tablet,delayed release (Adult Aspirin Regimen) 81 mg PO DAILY 09/03/19 [History Last Taken Unknown] folic acid 1 mg tablet 1 mg PO DAILY 09/30/19 [History Last Taken Unknown] melatonin 3 mg capsule 3 mg PO HS PRN Sleep 09/30/19 [History Last Taken Unknown] metoprolol succinate 50 mg tablet,extended release 24 hr 50 mg PO BID this is a dose increase for tachycardia and htn #180 tabs 06/22/21 [Rx Last Taken 04/13/22 07:00] empagliflozin 25 mg tablet (Jardiance) 25 mg PO DAILY 04/06/22 [History Last Taken Unknown] gabapentin 100 mg capsule 100 mg PO QHS 04/06/22 [History Last Taken Unknown] insulin glargine 100 unit/mL (3 mL) subcutaneous pen (Lantus Solostar U-100 Insulin) 20 unit subcut QPM 04/06/22 [History Last Taken Unknown] pantoprazole 40 mg tablet,delayed release 40 mg PO DAILY 04/06/22 [History Last Taken 04/13/22 07:00] dulaglutide 3 mg/0.5 mL subcutaneous pen injector (Trulicity) 3 mg subcut QWEEK 10/31/22 [History Last Taken Unknown] apixaban 5 mg tablet (Eliquis) 5 mg PO BID 03/11/23 [History Last Taken Unknown] atorvastatin 10 mg tablet 10 mg PO QHS 03/11/23 [History Last Taken Unknown] furosemide 20 mg tablet 40 mg PO DAILY 03/11/23 [History Last Taken Unknown] lisinopril 20 mg tablet 10 mg PO DAILY 03/11/23 [History Last Taken Unknown] Allergy/AdvReac Type Severity Reaction Status Date / Time pioglitazone HCl [From Actos] Allergy Swelling Verified 03/11/23 10:32 Family History Mother COPD (chronic obstructive pulmonary disease) Hypertension CAD (coronary artery disease) Sister Hypertension Diabetes Surgical History History of cataract removal with insertion of prosthetic lens History of colonoscopy History of coronary artery bypass graft x 3 (~08/12/19) History of laparoscopic-assisted vaginal hysterectomy History of left heart catheterization (06/11/19) History of right-sided carotid endarterectomy (12/13/11) History of shoulder surgery History of tonsillectomy Stented coronary artery (08/19/07) Social History Smoking Status: Former smoker quit date: 05/01/02 pack-years: 40 how long ago did patient quit smokin years ago alcohol intake: current alcohol intake frequency: holidays/special occasions only substance use type: does not use caffeine: Yes Type: coffee Number of servings: 12 additional social history: Works at [employer] Constitutional Constitutional: Reports chills; Denies fatigue, fever(s) or malaise Eyes Eyes: Denies blurry vision ENT HEENT: Denies headache(s) or nasal discharge Cardiovascular Cardiovascular: Denies chest pain, dyspnea on exertion or syncope Respiratory/Chest Respiratory/Chest: Denies cough, shortness of breath at rest or shortness of breath with exertion Gastrointestinal Gastrointestinal: Reports abdominal pain; Denies constipation, diarrhea, nausea or vomiting Genitourinary Genitourinary: Denies dysuria Integumentary Integumentary: Reports jaundice Neurologic Neurologic: Denies focal weakness, numbness or tremor(s) Psychiatric Psychiatric: Denies anxiety or depression Physical Exam Narrative General: Alert, Oriented x3, Cooperative, No apparent distress HEENT: Atraumatic, PERRLA, EOMI, Normocephalic, scleral icterus Oral: Moist Mucosa Neck: Supple, No JVD Lungs: Diminished, Normal air movement, No rhonchi, No wheeze, No rales Cardiovascular: Regular rate, Regular Rhythm, Normal S1, Normal S2, No murmurs Abdomen: Soft, right upper quadrant tender, Non-Distended, No Hepato- splenomegaly Extremities: No edema, Capillary Refill Less than 3 Seconds Skin: Jaundice Musculoskeletal: No Tenderness to Palpation of Joints or Extremities Neurological: Cranial nerves II-XII grossly intact, Motor Exam 5/5 strength throughout, Sensory exam intact to light touch and pain Psych/Mental Status: Normal Affect, Appropriate Lab / Micro Data Result Diagrams: 03/11/23 10:53 03/11/23 10:53 Labs: Laboratory Results - last 24 hr 03/11/23 10:53: WBC 7.7, RBC 3.95 L, Hgb 11.8 L, Hct 34.2 L, MCV 86.6, MCH 29.9, MCHC 34.5, RDW Std Deviation 56.6 H, RDW Coeff of Jo Ann 18.2 H, Plt Count 307, MPV 9.8, Immature Gran % (Auto) 0.300, Neut % (Auto) 72.1 H, Lymph % (Auto) 14.1 L, [place] % (Auto) 12.8 H, Eos % (Auto) 0.4, Baso % (Auto) 0.3, Absolute Neuts (auto) 5.6, Absolute Lymphs (auto) 1.09, Nucleated RBC % 0 03/11/23 10:53: Sodium 133 L, Potassium 3.5, Chloride 100, Carbon Dioxide 23.0, Anion Gap 10, BUN 27 H, Creatinine 1.18 H, Est GFR (MDRD) Af Amer 58 L, Est GFR (MDRD) Non-Af 48 L, BUN/Creatinine Ratio 22.9 H, Glucose 75, Calcium 8.2 L, Total Bilirubin 19.60 H*, AST 1453 H, ALT 791 H, Alkaline Phosphatase 1804 H, Total Protein 5.2 L, Albumin 2.1 L, Globulin 3.1, Albumin/Globulin Ratio 0.7 L, Amylase 26, Lipase 42 03/11/23 18:30: PT 21.3 H, INR 1.8, APTT 39.8 H Radiology Impression Abdomen/Pelvis CT 03/11/23 10:58 IMPRESSION: Moderate-severe intrahepatic and extrahepatic biliary ductal dilatation with densities in the distal duct, concerning for obstructing choledocholithiasis. Cholelithiasis with gallbladder distention and gallbladder wall edema concerning for acute cholecystitis. Pancreatic atrophy with pancreatic ductal dilatation and small periductal cystic lesions. Findings may represent sequela of pancreatitis with small pseudocysts but recommend follow-up to exclude centrally obstructing mass in addition to small pancreatic cystic neoplasms. Mild diverticulitis of the mid descending colon. Mild ascites. Electronically Signed: Katy Mon MD at 12:48 EDT , Assessment & Plan Assessment/Plan (1) Hyperbilirubinemia: (2) Jaundice: (3) Acute cholecystitis: (4) Choledocholithiasis: PLAN: Plan 72 yo with abdominal pain and discovered to have severe cholestatic hepatitis with jaundice ,acute cholecystitis and choledocholithiasis. She will undergo ERCP with stone removal, biopsies and stent placement. Charges/Coding Visit Charges Inpatient E&M: 33338 Init Hosp L2
[2023-03-11 19:18] LABS: Bedside Glucose 67 mg/dL (74-106)
[2023-03-11 19:18] LABS: Bedside Glucose 121 mg/dL (74-106)
[2023-03-11 19:18] LABS: Bedside Glucose 65 mg/dL (74-106)
[2023-03-11 19:18] LABS: Bedside Glucose 89 mg/dL (74-106)
[2023-03-11] MEDS: Atorvastatin Calcium 10 MG Tablet PO (21:36)
[2023-03-11] MEDS: Metoprolol(XL)Succ 50 MG Tablet PO (21:36)
[2023-03-11 22:26] LABS: Bedside Glucose 212 mg/dL (74-106)
[2023-03-12] VITALS (13 sets, daily range): BP systolic 69–102; BP diastolic 48–70; PULSE 66–83; RESP 12–18; TEMP 36–36.9; O2SAT 94–100; BMI 29.7
[2023-03-12] MEDS: Ondansetron 4 MG/2 ML Vial IV (01:13)
--- NOTE | 2023-03-12 05:00 | EKG12_ITS ---
Test Reason : MORNING EKG Blood Pressure : / mmHG Vent. Rate : 073 BPM Atrial Rate : 073 BPM P-R Int : 144 ms QRS Dur : 100 ms QT Int : 414 ms P-R-T Axes : 051 043 028 degrees QTc Int : 456 ms Normal sinus rhythm Normal ECG When compared with ECG of 23-OCT-2016 08:32, Premature ventricular complexes are no longer Present Confirmed by ANGY EUBANKS, SEB ([id number]), news editor SCOT RAMIREZ ([id number]) on 03/13/2023 9:43:50 AM Referred By: CHERYL Confirmed By:SEB TRAVIS MD
--- NOTE | 2023-03-12 05:00 | RAD_ITS ---
INDICATION: preop EXAMINATION/TECHNIQUE: X-RAY - XR Chest 1 View AP portable. 4:32 AM. COMPARISON: 09/29/2019 FINDINGS: LINES/DEVICES: None. LUNGS: No consolidation. Minimal scarring at the left lung base. No pneumothorax. MEDIASTINUM: Aorta is atherosclerotic. CARDIAC SILHOUETTE: Not enlarged. Sternal wires. BONES AND SOFT TISSUES: Surgical hardware right humerus. RAD/Chest 1 View (Portable) IMPRESSION: No evidence of active intrathoracic disease. Electronically Signed: Elisa Booth MD at 5:16 EDT ,
[2023-03-12] MEDS: Morphine 2 MG/ML Syringe IV ×2 (05:44→21:15)
[2023-03-12 06:03] LABS: Absolute Neutrophil Count 3.3 X10^3/uL (2.0-7.7); Basophil# 0.01 X10^3/uL; Basophil% 0.2 % (0-1); Eosinophil# 0.02 X10^3/uL; Eosinophils% 0.4 % (0-5); Hematocrit 31.8 % (37-47); Hemoglobin 10.8 g/dL (12.0-15.0); Lymphocyte % 13.1 % (19-41); Mean Corpuscular Hgb 29.5 pg (27.0-32.0); Mean Corpuscular Volume 86.9 fL (81-99); Mean Platelet Vol. 9.4 fl (6.2-12.0); Monocyte# 0.67 X10^3/uL; Monocyte% 14.6 % (0-10); NRBC Flagged by Analyzer 0 % (0-5); Neutrophil # 3.27 X10^3/uL (2.7-7.7); Neutrophil % 71.5 % (47-70); POSITIVE DIFFERENTIAL YES; Platelet Count 257 K/mm3 (150-450); RBC Distribution Width CV 19.3 % (11.6-14.6); RBC Distribution Width SD 60.5 fl (35.1-43.9); Red Blood Count 3.66 M/mm3 (4.2-5.4); White Blood Count 4.6 K/mm3 (4.4-11.0)
[2023-03-12 06:11] LABS: Differential Indicated SCAN CRITERIA MET
[2023-03-12 06:26] LABS: International Normalized Ratio 1.7; Partial Thromboplast Time 39.1 Seconds (24.1-36.2); Prothrombin Time (Protime)PT. 20.3 SECONDS (11.7-14.9)
[2023-03-12 06:55] LABS: Differential Comment SCANNED
--- NOTE | 2023-03-12 07:18 | PN.SURG_ITS ---
Subjective Subjective Patient had no new issues overnight. Objective Data Objective Data Vital Signs: Vital Signs Temp Pulse Resp BP Pulse Ox O2 Del Method 97.9 F 80 16 97/57 L 100 Room Air 03/12/23 05:30 03/12/23 05:30 03/12/23 05:30 03/12/23 05:30 03/12/23 05:30 03/12/23 05:30 Oxygen Delivery Method Room Air Weight: 168 lb 3.403 oz Body Mass Index (BMI) 29.7 Intake & Output: Intake and Output for Last 24 Hours 03/10/23 03/11/23 03/12/23 23:59 23:59 23:59 Intake Total 1889.5 / 1889.5 556.25 / 556.25 Balance 1889.5 / 1889.5 556.25 / 556.25 Lab / Micro Data Result Diagrams: 03/12/23 05:35 03/11/23 10:53 Labs: Laboratory Results - last 24 hr 03/11/23 10:53: WBC 7.7, RBC 3.95 L, Hgb 11.8 L, Hct 34.2 L, MCV 86.6, MCH 29.9, MCHC 34.5, RDW Std Deviation 56.6 H, RDW Coeff of Jo [place] 18.2 H, Plt Count 307, MPV 9.8, Immature Gran % (Auto) 0.300, Neut % (Auto) 72.1 H, Lymph % (Auto) 14.1 L, [place] % (Auto) 12.8 H, Eos % (Auto) 0.4, Baso % (Auto) 0.3, Absolute Neuts (auto) 5.6, Absolute Lymphs (auto) 1.09, Nucleated RBC % 0 03/11/23 10:53: Sodium 133 L, Potassium 3.5, Chloride 100, Carbon Dioxide 23.0, Anion Gap 10, BUN 27 H, Creatinine 1.18 H, Est GFR (MDRD) Af Amer 58 L, Est GFR (MDRD) Non-Af 48 L, BUN/Creatinine Ratio 22.9 H, Glucose 75, Calcium 8.2 L, To onur Bilirubin 19.60 H*, AST 1453 H, ALT 791 H, Alkaline Phosphatase 1804 H, Total Protein 5.2 L, Albumin 2.1 L, Globulin 3.1, Albumin/Globulin Ratio 0.7 L, Amylase 26, Lipase 42 03/11/23 17:47: POC Glucose 65 L 03/11/23 18:07: POC Glucose 67 L 03/11/23 18:30: PT 21.3 H, INR 1.8, APTT 39.8 H 03/11/23 18:35: POC Glucose 89 03/11/23 18:59: POC Glucose 121 H 03/11/23 21:39: POC Glucose 212 H 03/12/23 05:35: WBC 4.6, RBC 3.66 L, Hgb 10.8 L, Hct 31.8 L, MCV 86.9, MCH 29.5, MCHC 34.0, RDW Std Deviation 60.5 H, RDW Coeff of Jo [place] 19.3 H, Plt Count 257, MPV 9.4, Immature Gran % (Auto) 0.200, Neut % (Auto) 71.5 H, Lymph % (Auto) 13.1 L, [place] % (Auto) 14.6 H, Eos % (Auto) 0.4, Baso % (Auto) 0.2, Absolute Neuts (auto) 3.3, Absolute Lymphs (auto) 0.60 L, Nucleated RBC % 0, Differential Comment SCANNED 03/12/23 05:35: PT 20.3 H, INR 1.7, APTT 39.1 H Radiography Diagnostic Testing: Radiology Impression Abdomen/Pelvis CT 03/11/23 10:58 IMPRESSION: Moderate-severe intrahepatic and extrahepatic biliary ductal dilatation with densities in the distal duct, concerning for obstructing choledocholithiasis. Cholelithiasis with gallbladder distention and gallbladder wall edema concerning for acute cholecystitis. Pancreatic atrophy with pancreatic ductal dilatation and small periductal cystic lesions. Findings may represent sequela of pancreatitis with small pseudocysts but recommend follow-up to exclude centrally obstructing mass in addition to small pancreatic cystic neoplasms. Mild diverticulitis of the mid descending colon. Mild ascites. Electronically Signed: Katy Mon MD at 12:48 EDT , Chest X-Ray 06/12/23 05:00 IMPRESSION: No evidence of active intrathoracic disease. Electronically Signed: Elisa Booth MD at 5:16 EDT , Physical Exam Const oriented x3 and no apparent distress Cardio regular rate and regular rhythm GI soft to palpation and non-tender Assessment & Plan Assessment/Plan (1) Jaundice: PLAN: Patient has obstructive jaundice. Dr. Jin is attempting ERCP today. If he is able to decompress the biliary tree I will add her on for laparoscopic cholecystectomy later this week. If he is unable to access the duct I will order a cholecystostomy tube by IR. Then subsequently a cholangiogram can be performed through the cholecystostomy tube. Shadi Gueavra MD Pager: [facility] [address] [place] [address], [address] [place] [address] Office:
[2023-03-12] MEDS: 0.9% Normal Saline 1,000 ML 75 ML IV ×2 (07:50→21:14)
[2023-03-12 07:54] LABS: ALB/GLOB Ratio 0.5 RATIO (0.9-2.4); AST(SGOT) 1282 U/L (15-37); Alanine Aminotransfer ALT/SGPT 693 U/L (13-56); Albumin, Serum 1.7 g/dL (3.2-5.0); Alkaline Phosphatase 1527 U/L (45-117); Anion Gap 5 (5-15); BUN 21 mg/dL (7-18); BUN/Creat Ratio 20.4 RATIO (10-20); Calcium,Total 8.3 mg/dL (8.5-10.1); Chloride 104 mmol/L (98-107); Creatinine, Serum 1.03 mg/dL (0.55-1.02); EST Glomerular Filtration Rate 56 mL/min (>60); Est Glom Filt Rate - Afr Amer 67 mL/min (>60); Estimated Creatinine Clearance 39.64 ml/min; Globulin 3.3 g/dL (2.2-4.2); Glucose 122 mg/dL (74-106); Potassium 3.5 mmol/L (3.5-5.1); Sodium Level 135 mmol/L (136-145)
--- NOTE | 2023-03-12 08:02 | PN.HOSP_ITS ---
Reason for Visit Reason for Visit: Diagnoses Other disorders of bilirubin metabolism (03/11/23) Calculus of bile duct without cholangitis or cholecystitis without obstruction (03/11/23) Acute cholecystitis (03/11/23) Unspecified jaundice (03/11/23) Subjective Subjective Having some abdominal pain Objective Data Objective Data Vital Signs: Vital Signs Temp Pulse Resp BP Pulse Ox O2 Del Method 36.6 C 80 16 97/57 L 100 Room Air 03/12/23 05:30 03/12/23 05:30 03/12/23 05:30 03/12/23 05:30 03/12/23 05:30 03/12/23 05:30 Oxygen Delivery Method Room Air Weight: 76.3 kg Body Mass Index (BMI) 29.7 Intake & Output: Intake and Output for Last 24 Hours 03/10/23 03/11/23 03/12/23 23:59 23:59 23:59 Intake Total 1889.5 / 1889.5 668.25 / 668.25 Balance 1889.5 / 1889.5 668.25 / 668.25 Lab / Micro Data Result Diagrams: 03/12/23 05:35 03/12/23 05:35 Labs: Laboratory Results - last 24 hr 03/11/23 10:53: WBC 7.7, RBC 3.95 L, Hgb 11.8 L, Hct 34.2 L, MCV 86.6, MCH 29.9, MCHC 34.5, RDW Std Deviation 56.6 H, RDW Coeff of Jo Ann 18.2 H, Plt Count 307, MPV 9.8, Immature Gran % (Auto) 0.300, Neut % (Auto) 72.1 H, Lymph % (Auto) 14.1 L, [place] % (Auto) 12.8 H, Eos % (Auto) 0.4, Baso % (Auto) 0.3, Absolute Neuts (auto) 5.6, Absolute Lymphs (auto) 1.09, Nucleated RBC % 0 03/11/23 10:53: Sodium 133 L, Potassium 3.5, Chloride 100, Carbon Dioxide 23.0, Anion Gap 10, BUN 27 H, Creatinine 1.18 H, Est GFR (MDRD) Af Amer 58 L, Est GFR (MDRD) Non-Af 48 L, BUN/Creatinine Ratio 22.9 H, Glucose 75, Calcium 8.2 L, Total Bilirubin 19.60 H*, AST 1453 H, ALT 791 H, Alkaline Phosphatase 1804 H, To onur Protein 5.2 L, Albumin 2.1 L, Globulin 3.1, Albumin/Globulin Ratio 0.7 L, Amylase 26, Lipase 42 03/11/23 17:47: POC Glucose 65 L 03/11/23 18:07: POC Glucose 67 L 03/11/23 18:30: PT 21.3 H, INR 1.8, APTT 39.8 H 03/11/23 18:35: POC Glucose 89 03/11/23 18:59: POC Glucose 121 H 03/11/23 21:39: POC Glucose 212 H 03/12/23 05:35: WBC 4.6, RBC 3.66 L, Hgb 10.8 L, Hct 31.8 L, MCV 86.9, MCH 29.5, MCHC 34.0, RDW Std Deviation 60.5 H, RDW Coeff of Jo Ann 19.3 H, Plt Count 257, MPV 9.4, Immature Gran % (Auto) 0.200, Neut % (Auto) 71.5 H, Lymph % (Auto) 13.1 L, [place] % (Auto) 14.6 H, Eos % (Auto) 0.4, Baso % (Auto) 0.2, Absolute Neuts (auto) 3.3, Absolute Lymphs (auto) 0.60 L, Nucleated RBC % 0, Differential Comment SCANNED 03/12/23 05:35: Sodium 135 L, Potassium 3.5, Chloride 104, Carbon Dioxide 26.0, Anion Gap 5, BUN 21 H, Creatinine 1.03 H, Estim Creat Clear Calc 39.64, Est GFR (MDRD) Af Amer 67, Est GFR (MDRD) Non-Af 56 L, BUN/Creatinine Ratio 20.4 H, Glucose 122 H, Calcium 8.3 L, Total Bilirubin 16.50 H*, AST 1282 H, ALT 693 H, Alkaline Phosphatase 1527 H, Total Protein 5.0 L, Albumin 1.7 L, Globulin 3.3, Albumin/Globulin Ratio 0.5 L 03/12/23 05:35: PT 20.3 H, INR 1.7, APTT 39.1 H Radiography Diagnostic Testing: Radiology Impression Abdomen/Pelvis CT 03/11/23 10:58 IMPRESSION: Moderate-severe intrahepatic and extrahepatic biliary ductal dilatation with densities in the distal duct, concerning for obstructing choledocholithiasis. Cholelithiasis with gallbladder distention and gallbladder wall edema concerning for acute cholecystitis. Pancreatic atrophy with pancreatic ductal dilatation and small periductal cystic lesions. Findings may represent sequela of pancreatitis with small pseudocysts but recommend follow-up to exclude centrally obstructing mass in addition to small pancreatic cystic neoplasms. Mild diverticulitis of the mid descending colon. Mild ascites. Electronically Signed: Katy Mon MD at 12:48 EDT , Chest X-Ray 03/12/23 05:00 IMPRESSION: No evidence of active intrathoracic disease. Electronically Signed: Elisa Booth MD at 5:16 EDT , Physical Exam Const alert and no apparent distress Eyes Eyes Narrative: icterus. Resp normal respiratory effort, no retractions, no use of accessory muscles and clear to auscultation bilaterally Cardio regular rate, regular rhythm, S1 normal heart sound and S2 normal heart sound GI normal to inspection, nondistended, normoactive bowel sounds GI Narrative: +RUQ tenderness. Extremity normal to inspection Skin Skin Narrative: +Jaundice Assessment & Plan Assessment/Plan (1) Choledocholithiasis: PLAN: Choledocholithiasis with hyperbilirubinemia and jaundice ERCP today with GI On Amp/SB Seen by GS, plan for lap flaquito later this week. PLAN: Plan Chronic conditions: * CAD status post CABG and stent hold her aspirin secondary to intervention * HTN Blood pressures are currently stable can resume her home blood pressure medications * HLD Continue with Lipitor * A-fib Hold her Eliquis secondary to intervention * DM2 We will hold all of her home medication. We will place her on sliding scale insulin secondary to being on clear liquid diet and n.p.o. after midnight. We will monitor and make adjustments as necessary * GERD Stable Continue with PPI DVT: Lovenox Charges/Coding Visit Charges Inpatient E&M: 94335 Subs Hosp L2
[2023-03-12 08:29] LABS: Hemoglobin A1c 7.3 % (3.8-5.6)
[2023-03-12 09:55] LABS: Bedside Glucose 111 mg/dL (74-106)
--- NOTE | 2023-03-12 10:25 | CASEMGMT ---
CHAITANYA ARAUZ Discharge Planning Assessment: Face to Face with patient for initial transition planning/care coordination assessment.?CHAITANYA ARAUZ introduced self and role at [facility], pt alert, oriented x4, voices understanding and is agreeable to participating in assessment.? Care providers, pharmacy,?and demographics verified. ? PCP: [facility] Specialists: [facility] Preferred Pharmacy: [facility] Insurance: MCR A/B, for Life Prescription Benefit:?yes Living Will/HPOA: pt states she has the forms at home. Encouraged pt to have them brought in to be scanned into pt's EMR. Pt expressed understanding and states her granddaughter Afshan Dang is listed as her HPOA LNOK: daughters Bárbara and Rosa (both live out of state) Living Arrangements: Pt lives alone in a single story home with two steps to enter from the front and 11 steps from the garage as it is located in the basement. Pt states she is independent with ADLs including self care and household tasks. Transportation: Pt states she drives and has family and friends that can assist if needed DME: [facility] HHC: has had in the past but unable to recall provider name SNF: denies any previous need ? Pt's goal/plan: Return home with the support of her granddaughter (lives in [place]) and sister Will continue to monitor and assist with discharge needs as identified. Patricia Buchanan RN CM
[2023-03-12 11:50] LABS: Bedside Glucose 102 mg/dL (74-106)
--- NOTE | 2023-03-12 11:53 | NURSING ---
pt granddaughter is Breana and her cell phone is [phone]
--- NOTE | 2023-03-12 12:40 | RAD_ITS ---
STUDY: ERCP. REASON FOR EXAM: Female, 72 years old. Intrahepatic biliary ductal dilatation. FLUOROSCOPY TIME (if supplied): ( 23.4 seconds ) minutes/seconds. 7.28 mGy TECHNIQUE: An ERCP was attempted by the oncology rep. COMPARISON: None. FINDINGS: Unsuccessful ERCP. RAD/ERCP Biliary Only IMPRESSION: Unsuccessful ERCP. Electronically Signed: Benito Robles MD at 14:55 EDT ,
[2023-03-12] MEDS: Glucagon 1 MG/ML Syringe IM (13:36)
--- NOTE | 2023-03-12 14:10 | PCM.PN.BLA ---
Progress Note Dr. Jin was unable to cannulate the biliary tree. I believe this is more likely to be cancerous than choledocholithiasis. I will order cholecystostomy tube today for decompression of the biliary tree. This will also help treat the acute cholecystitis. After that is placed likely tomorrow I will order an MRCP for better evaluation. Shadi Guevara MD Pager: [facility] [address] [place] [address] [address] [place] [address] Office:
--- NOTE | 2023-03-12 14:21 | OP.ERCP_ITS ---
Patient Name: Stacey Ellis Procedure Date: 03/12/2023 12:14 PM Date of : 1950 Age: 72 Procedure: ERCP Indications: Bile duct stone(s), Common bile duct stricture Providers: Ren Jin DO Medicines: Monitored Anesthesia Care Patient Profile: This is a 72 year old female. Patient has symptoms of acute jaundice. The symptoms first began 05,. Complications: No immediate complications. Procedure: Pre-Anesthesia Assessment: - Prior to the procedure, a History and Physical was performed, and patient medications and allergies were reviewed. The patient is competent. The risks and benefits of the procedure and the sedation options and risks were discussed with the patient. All questions were answered and informed consent was obtained. Patient identification and proposed procedure were verified by the physician. Prophylactic Antibiotics: The patient does not require prophylactic antibiotics. Prior Anticoagulants: The patient has taken Eliquis (apixaban), last dose was 1 day prior to procedure. ASA Grade Assessment: II - A patient with mild systemic disease. After reviewing the risks and benefits, the patient was deemed in satisfactory condition to undergo the procedure. The anesthesia plan was to use monitored anesthesia care (MAC). Immediately prior to administration of medications, the patient was re-assessed for adequacy to receive sedatives. The heart rate, respiratory rate, oxygen saturations, blood pressure, adequacy of pulmonary ventilation, and response to care were monitored throughout the procedure. The physical status of the patient was re-assessed after the procedure. After obtaining informed consent, the scope was passed under direct vision. Throughout the procedure, the patient's blood pressure, pulse, and oxygen saturations were monitored continuously. The Duodenoscope was introduced through the mouth, and advanced to the duodenum and used to inject contrast into the ventral pancreatic duct. The ERCP was accomplished without difficulty. The patient tolerated the procedure well. Scope In: 12:46:35 PM Scope Out: 1:45:31 PM Total Procedure Duration Time 0 hours 58 minutes 56 seconds Findings: The washer repairman film was normal. The esophagus was successfully intubated under direct vision. The scope was advanced to a normal major papilla in the descending duodenum without detailed examination of the pharynx, larynx and associated structures, and upper GI tract. The upper GI tract was grossly normal. Deep cannulation of the ventral pancreatic duct was accomplished. The ventral pancreatic duct in the head of the pancreas, pancreatic duct in the genu of the pancreas, pancreatic duct in the body of the pancreas and pancreatic duct in the tail of the pancreas were dilated moderately. One 5 Fr by 7 cm temporary stent was placed 5 cm into the ventral pancreatic duct. Clear fluid flowed through the stent. The stent was in good position. A 5 mm biliary sphincterotomy was made with a traction (standard) sphincterotome using ERBE electrocautery. The sphincterotomy oozed blood. Impression: - Moderate dilatation of the ventral pancreatic duct in the head of the pancreas, pancreatic duct in the body of the pancreas, pancreatic duct in the tail of the pancreas and the pancreatic duct in the genu of the pancreas was found. - One temporary stent was placed into the ventral pancreatic duct. - A biliary sphincterotomy was performed. Recommendation: Percutaneous drainage CT was not able to be cannulated due to severe stricture Procedure Code(s): --- Professional --- 39745, Endoscopic retrograde cholangiopancreatography (ERCP); with placement of endoscopic stent into biliary or pancreatic duct, including pre- and post-dilation and guide wire passage, when performed, including sphincterotomy, when performed, each stent 75313, 59, Endoscopic retrograde cholangiopancreatography (ERCP); with sphincterotomy/papillotomy CPT copyright 2017 [employer]. All rights reserved. The codes documented in this report are preliminary and upon salt lifter review may be revised to meet current compliance requirements. Ren Jin DO 03/12/2023 2:21:16 PM This report has been signed electronically. Number of Addenda: 0 Note Initiated On: 03/12/2023 12:14 PM
--- NOTE | 2023-03-12 14:22 | OP.CCLET_ITS ---
03/12/2023 Apolinar Reinoso MD Re : ERCP procedure for Stacey Ellis Dear Dr. Reinoso This procedure was performed on Sunday, March 12, 2023. My impressions and recommendations are as follows: Impressions : - Moderate dilatation of the ventral pancreatic duct in the head of the pancreas, pancreatic duct in the body of the pancreas, pancreatic duct in the tail of the pancreas and the pancreatic duct in the genu of the pancreas was found. - One temporary stent was placed into the ventral pancreatic duct. - A biliary sphincterotomy was performed. Recommendations : Percutaneous drainage CT was not able to be cannulated due to severe stricture My findings are described in the full procedure note, which is enclosed. If I can be of further assistance, please feel free to contact me at . Sincerely, Ren Jin, 03/12/2023 2:21:16 PM This report has been signed electronically.
--- NOTE | 2023-03-12 14:25 | CHAPLAIN ---
Type of Pastoral Visit _x__ Initial Visit ___ Follow-up Visit ___ On-call Visit ___ General Patient Visit ___ Spiritual Assessment ___ Family Conference ___ Bereavement ___ Rapid Response ___ Code Blue ___ Other (describe below) Pastoral Care Referral From _x__ Patient ___ Family ___ Nurse ___ Physician ___ It Quality Analyst ___ Short Piece Handler ___ Other (describe below) Sacrament/Intervention ___ Active listening ___ Anointing ___ Baptist ___ Bereavement ___ Communion ___ Betty exploration ___ ___ Life review ___ Prayer ___ Reconciliation ___ Sacrament of Sick ___ Supportive presence ___ Wedding _x__ Other (describe below) Pastoral Comments the patient is in surgery at this time; granddaughter is in the room; grand reports situation and really expects situation to be resolved; offer of support received; no other needs evident
[2023-03-12 15:13] LABS: Bedside Glucose 125 mg/dL (74-106)
[2023-03-12 16:52] LABS: Bedside Glucose 169 mg/dL (74-106)
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
[2023-03-12] MEDS: Atorvastatin Calcium 10 MG Tablet PO (21:17)
[2023-03-12 23:10] LABS: Bedside Glucose 312 mg/dL (74-106)
[2023-03-13] VITALS (15 sets, daily range): BP systolic 73–178; BP diastolic 40–80; PULSE 80–95; RESP 14–20; TEMP 36.4–37.2; O2SAT 86–99; BMI 29.7
--- NOTE | 2023-03-13 | FLU_PTH ---
PATIENT: NASRIN HUGGINS LOC: MS3 U#:[id number] AGE/SX: 72/F ROOM: [facility] RE03/11/[address]: Dr. Jason Clinton DO : 1950 BED: 1 DIS: 03/13/2023 SPEC #: [id number] RECD: 03/13/23 11:08 STATUS: TAHIRA REQ #: [id number] LAURO: 03/13/23 00:[address]: Shadi Guevara DEPT: CYTOLOGY RECD BY: Dara Olivarez ENTERED: 03/13/23 11:09 SP TYPE: Fluid OTHR DR: MD Dr. Jason Portillo DO Dr. Jeffrey Burkey, MD Dr. Nicholas F Kotsonis, MD Dr. Rahsaan Friend, DO Tissues: Biliary tract, NOS Procedures: Special Stain Group II Surgery Specimen Level IV Cytospin Fluid Comments: @ Ordering doctor for SSII edited from to @ by LAMINE at 03/13/23 1358 @ Ordering doctor for SUIV edited from to @ by LAMINE at 03/13/23 1358 @ Ordering doctor for CYSPIN edited from to @ by LAMINE at 03/13/23 1358 @ Submitting doctor edited from to DR.ACALAB Morris by LAMINE at 03/13/23 1358 HEADER OPERATION: Not noted PRE-OP DIAGNOSIS: Acute cholecystitis, biliary ductal dilatation TISSUE SUBMITTED: Bile fluid for cytology DIAGNOSIS CYTOLOGY Bile fluid for cytology (cytospin and cell block): Negative for malignant cells. See comment. SJ:tyler 03/14/2023 COMMENT Clinical correlation and appropriate follow up are necessary. CYTOLOGY STUDY Slides are reviewed. CYTOLOGY GROSS Received is 45 ml of cloudy dark green fluid labeled with the patient's name and and designated per the requisition as bile. Submitted for cytology preparation including cell block. / tyler 03/13/2023 TC:5 CPT: 85278, 99882
[2023-03-13 06:27] LABS: Absolute Lymphocyte Count 0.41 X10^3/uL (0.83-4.51); Absolute Neutrophil Count 3.4 X10^3/uL (2.0-7.7); Hematocrit 29.3 % (37-47); Hemoglobin 9.4 g/dL (12.0-15.0); Lymphocyte # 0.41 X10^3/ul (0.83-4.51); Lymphocyte % 9.6 % (19-41); Mean Corp Hgb Conc 32.1 g/dL (32-36); Mean Corpuscular Hgb 29.3 pg (27.0-32.0); Mean Corpuscular Volume 91.3 fL (81-99); Mean Platelet Vol. 9.9 fl (6.2-12.0); Monocyte# 0.42 X10^3/uL; Monocyte% 9.8 % (0-10); NRBC Flagged by Analyzer 0 % (0-5); Neutrophil # 3.42 X10^3/uL (2.7-7.7); Neutrophil % 80.1 % (47-70); POSITIVE DIFFERENTIAL YES; POSITIVE MORPHOLOGY YES; Platelet Count 281 K/mm3 (150-450); RBC Distribution Width CV 19.9 % (11.6-14.6); RBC Distribution Width SD 65.7 fl (35.1-43.9); Red Blood Count 3.21 M/mm3 (4.2-5.4); White Blood Count 4.3 K/mm3 (4.4-11.0)
[2023-03-13 06:33] LABS: Differential Indicated SCAN CRITERIA MET
--- NOTE | 2023-03-13 06:53 | PN.SURG_ITS ---
Subjective Subjective Patient has no new issues overnight. Objective Data Objective Data Vital Signs: Vital Signs Temp Pulse Resp BP Pulse Ox O2 Del Method 97.9 F 82 16 93/51 L 97 Room Air 03/13/23 05:02 03/13/23 05:02 03/13/23 05:02 03/13/23 05:02 03/13/23 05:02 03/13/23 05:02 Oxygen Delivery Method Room Air Weight: 168 lb 3.403 oz Body Mass Index (BMI) 29.7 Intake & Output: Intake and Output for Last 24 Hours 03/11/23 03/12/23 03/13/23 23:59 23:59 23:59 Intake Total 1889.5 / 1889.5 1596.00 / 1596.00 Balance 1889.5 / 1889.5 1596.00 / 1596.00 Lab / Micro Data Result Diagrams: 03/13/23 05:40 03/12/23 05:35 Labs: Laboratory Results - last 24 hr 03/12/23 05:35: Differential Comment SCANNED 03/12/23 05:35: Sodium 135 L, Potassium 3.5, Chloride 104, Carbon Dioxide 26.0, Anion Gap 5, BUN 21 H, Creatinine 1.03 H, Estim Creat Clear Calc 39.64, Est GFR (MDRD) Af Amer 67, Est GFR (MDRD) Non-Af 56 L, BUN/Creatinine Ratio 20.4 H, Glucose 122 H, Calcium 8.3 L, Total Bilirubin 16.50 H*, AST 1282 H, ALT 693 H, Alkaline Phosphatase 1527 H, Total Protein 5.0 L, Albumin 1.7 L, Globulin 3.3, Albumin/Globulin Ratio 0.5 L 03/12/23 05:35: Hemoglobin A1c 7.3 H 03/12/23 08:56: POC Glucose 111 H 03/12/23 11:29: POC Glucose 102 03/12/23 14:44: POC Glucose 125 H 03/12/23 16:32: POC Glucose 169 H 03/12/23 22:52: POC Glucose 312 H 03/13/23 05:40: WBC 4.3 L, RBC 3.21 L, Hgb 9.4 L, Hct 29.3 L, MCV 91.3 D, MCH 29.3, MCHC 32.1 D, RDW Std Deviation 65.7 H, RDW Coeff of Jo Ann 19.9 H, Plt Count 281, MPV 9.9, Immature Gran % (Auto) 0.500, Neut % (Auto) 80.1 H, Lymph % (Auto) 9.6 L, [place] % (Auto) 9.8, Eos % (Auto) 0.0, Baso % (Auto) 0.0, Absolute Neuts (auto) 3.4, Absolute Lymphs (auto) 0.41 L, Nucleated RBC % 0 Radiography Diagnostic Testing: Radiology Impression ERCP X-Ray 03/12/23 12:40 IMPRESSION: Unsuccessful ERCP. Electronically Signed: Benito Robles MD at 14:55 EDT , MRCP 03/12/23 17:18 IMPRESSION: 1. Marked intra and extrahepatic biliary ductal dilatation which with what appears to be a small obstructing stone in the intrapancreatic CBD. 2. Markedly distended gallbladder with multiple gallstones. 3. Mild ascites. 4. Bilateral pleural effusions. 5. Mild stranding of the perinephric fat without other evidence of renal abnormality. This may represent chronic changes. Electronically Signed: Catrachito Milton DO at 21:30 EDT Reading Location ID and State: [address] [place] [address] Tel [phone], Service support , ADDENDUM: 03/12/235 IMPRESSION: 1. Marked intra and extrahepatic biliary ductal dilatation which with what appears to be a small obstructing stone in the intrapancreatic CBD. 2. Markedly distended gallbladder with multiple gallstones. 3. Mild ascites. 4. Bilateral pleural effusions. 5. Mild stranding of the perinephric fat without other evidence of renal abnormality. This may represent chronic changes. N.B. : The above Results were Read Back by Catrachito Milton DO to Efrain Cantor RN, and understanding confirmed on 03/12/2023 21:49:05 (ET). Electronically Signed: Catrachito Milton DO at 21:30 EDT Reading Location ID and State: [address] [place] [address] Tel [phone], Service support , Assessment & Plan Assessment/Plan (1) Jaundice: PLAN: Patient continues to have obstructive jaundice. She had attempted ERCP yesterday but they were unable to cannulate her duct. She had a subsequent MRCP which showed cholelithiasis with suggested stone in the distal duct causing obstruction. The patient seemed to have some hypotension yesterday and seems to be slightly hypotensive today with a white count that is decreasing. I am concerned for mounting sepsis and I would like to have interventional radiology place a cholecystostomy tube today for decompression of the biliary tree and I asked the hospitalist to start working on transfer to tertiary center for a choledochotomy and removal of the stone. Shadi Guevara MD Pager: [facility] [address] [place] [address], [address] [place] [address] Office:
[2023-03-13 07:00] LABS: Anisocytosis 2+
--- NOTE | 2023-03-13 07:28 | PCM.PN.HOSP ---
Reason for Visit Reason for Visit: Diagnoses Other disorders of bilirubin metabolism (03/11/23) Calculus of bile duct without cholangitis or cholecystitis without obstruction (03/11/23) Acute cholecystitis (03/11/23) Unspecified jaundice (03/11/23) Subjective Subjective Feels better. Objective Data Objective Data Vital Signs: Vital Signs Temp Pulse Resp BP Pulse Ox O2 Del Method 36.6 C 82 16 93/51 L 97 Room Air 03/13/23 05:02 03/13/23 05:02 03/13/23 05:02 03/13/23 05:02 03/13/23 05:02 03/13/23 05:02 Oxygen Delivery Method Room Air Weight: 76.3 kg Body Mass Index (BMI) 29.7 Intake & Output: Intake and Output for Last 24 Hours 03/11/23 03/12/23 03/13/23 23:59 23:59 23:59 Intake Total 1889.5 / 1889.5 1596.00 / 1596.00 112 / 112 Balance 1889.5 / 1889.5 1596.00 / 1596.00 112 / 112 Lab / Micro Data Result Diagrams: 03/13/23 05:40 03/13/23 05:40 Labs: Laboratory Results - last 24 hr 03/12/23 05:35: Sodium 135 L, Potassium 3.5, Chloride 104, Carbon Dioxide 26.0, Anion Gap 5, BUN 21 H, Creatinine 1.03 H, Estim Creat Clear Calc 39.64, Est GFR (MDRD) Af Amer 67, Est GFR (MDRD) Non-Af 56 L, BUN/Creatinine Ratio 20.4 H, Glucose 122 H, Calcium 8.3 L, Total Bilirubin 16.50 H*, AST 1282 H, ALT 693 H, Alkaline Phosphatase 1527 H, Total Protein 5.0 L, Albumin 1.7 L, Globulin 3.3, Albumin/Globulin Ratio 0.5 L 03/12/23 05:35: Hemoglobin A1c 7.3 H 03/12/23 08:56: POC Glucose 111 H 03/12/23 11:29: POC Glucose 102 03/12/23 14:44: POC Glucose 125 H 03/12/23 16:32: POC Glucose 169 H 03/12/23 22:52: POC Glucose 312 H 03/13/23 05:40: WBC 4.3 L, RBC 3.21 L, Hgb 9.4 L, Hct 29.3 L, MCV 91.3 D, MCH 29.3, MCHC 32.1 D, RDW Std Deviation 65.7 H, RDW Coeff of Jo [place] 19.9 H, Plt Count 281, MPV 9.9, Immature Gran % (Auto) 0.500, Neut % (Auto) 80.1 H, Lymph % (Auto) 9.6 L, [place] % (Auto) 9.8, Eos % (Auto) 0.0, Baso % (Auto) 0.0, Absolute Neuts (auto) 3.4, Absolute Lymphs (auto) 0.41 L, Nucleated RBC % 0, Diff Path Review May foll, Anisocytosis 2+ Radiography Diagnostic Testing: Radiology Impression ERCP X-Ray 03/12/23 12:40 IMPRESSION: Unsuccessful ERCP. Electronically Signed: Benito Robles MD at 14:55 EDT Reading Location ID and State: [address] [place] [address] , Service support , MRCP 03/12/23 17:18 IMPRESSION: 1. Marked intra and extrahepatic biliary ductal dilatation which with what appears to be a small obstructing stone in the intrapancreatic CBD. 2. Markedly distended gallbladder with multiple gallstones. 3. Mild ascites. 4. Bilateral pleural effusions. 5. Mild stranding of the perinephric fat without other evidence of renal abnormality. This may represent chronic changes. Electronically Signed: Catrachito Milton DO at 21:30 EDT Reading Location ID and State: [address] [place] [address] Tel [phone], Service support , ADDENDUM: 03/12/235 IMPRESSION: 1. Marked intra and extrahepatic biliary ductal dilatation which with what appears to be a small obstructing stone in the intrapancreatic CBD. 2. Markedly distended gallbladder with multiple gallstones. 3. Mild ascites. 4. Bilateral pleural effusions. 5. Mild stranding of the perinephric fat without other evidence of renal abnormality. This may represent chronic changes. N.B. : The above Results were Read Back by Catrachito Milton DO to Efrain Cantor RN, and understanding confirmed on 03/12/2023 21:49:05 (ET). Electronically Signed: Catrachito Milton DO at 21:30 EDT Reading Location ID and State: [facility] / [place] Tel [phone], Service support , Physical Exam Const alert and no apparent distress HEENT head/scalp atraumatic and moist oral mucous membranes Eyes Eyes Narrative: icterus Resp normal respiratory effort, no retractions, no use of accessory muscles and clear to auscultation bilaterally Cardio regular rate, regular rhythm and S1 normal heart sound GI normal to inspection, nondistended, normoactive bowel sounds, soft to palpation, non-tender and non-distended Extremity normal to inspection Assessment & Plan Assessment/Plan (1) Choledocholithiasis: PLAN: Choledocholithiasis with hyperbilirubinemia and jaundice ERCP on 03/12 whowed moderate dilation of the ventral pancreatitc duct in the head of the pancreas. Temporary stent placed in the ventral pancreatic duct. On Amp/SB MRCP showed marked intra and extrahepatic biliary ductal dilation with what appears to be a small obstructing stone in the intrapancreatic CBD. Markedly distended gallbladder with multiple gallstones Nisha tube placed today. Continue Unasyn. GS recommending transfer to facility with biliary surgeon adelina to do a duct exploration. I spoke with [facility], patient has been accepted by Dr. Jenkins PLAN: Plan Chronic conditions: CAD status post CABG and stent hold her aspirin secondary to intervention HTN Blood pressures are currently stable can resume her home blood pressure medications HLD Continue with Lipitor A-fib Hold her Eliquis secondary to intervention DM2 We will hold all of her home medication. We will place her on sliding scale insulin secondary to being on clear liquid diet and n.p.o. after midnight. We will monitor and make adjustments as necessary GERD Stable Continue with PPI DVT: Lovenox Greater than 50 minutes of which greater than 50% of the time was discussing with the patient, discussing the recommendation for transfer and the reasoning for the transfer, discussing with [facility] transfer line about the case. Charges/Coding Visit Charges Inpatient E&M: 94458 Subs Hosp L3
[2023-03-13 07:32] LABS: ALB/GLOB Ratio 0.5 RATIO (0.9-2.4); AST(SGOT) 1246 U/L (15-37); Alanine Aminotransfer ALT/SGPT 663 U/L (13-56); Albumin, Serum 1.4 g/dL (3.2-5.0); Alkaline Phosphatase 1495 U/L (45-117); Anion Gap 7 (5-15); BUN 23 mg/dL (7-18); BUN/Creat Ratio 21.1 RATIO (10-20); Calcium,Total 7.8 mg/dL (8.5-10.1); Chloride 105 mmol/L (98-107); Creatinine, Serum 1.09 mg/dL (0.55-1.02); EST Glomerular Filtration Rate 52 mL/min (>60); Est Glom Filt Rate - Afr Amer 63 mL/min (>60); Estimated Creatinine Clearance 37.46 ml/min; Globulin 2.9 g/dL (2.2-4.2); Glucose 269 mg/dL (74-106); Potassium 3.8 mmol/L (3.5-5.1); Protein, Total 4.3 g/dL (6.4-8.2); Sodium Level 136 mmol/L (136-145)
[2023-03-13 07:54] LABS: Bedside Glucose 254 mg/dL (74-106)
[2023-03-13] MEDS: Midazolam 2 MG/2 ML Syringe IV (09:19)
[2023-03-13] MEDS: fentaNYL 100 MCG/2 ML Ampul IV (09:20)
[2023-03-13] MEDS: Lidocaine 2% (20 ml mdv) 20 ML Vial INFILT (09:40)
[2023-03-13 10:21] LABS: Cytology, Body Fluid / CSF SEE PATHOLOGY REPORT
[2023-03-13] MEDS: Insulin Lispro 100 UNIT/ML INSULN.PEN SC ×2 (11:28→16:32)
[2023-03-13 11:44] LABS: Bedside Glucose 222 mg/dL (74-106)
--- NOTE | 2023-03-13 13:32 | PCM.DC.SUM ---
Providers Date of Admission: 03/11/23 Primary Care Physician: Dr. Apolinar Reinoso MD Consultations 03/11/23 17:22 Consult: Gastroenterology Routine Consulting Provider: Ren Jin Reason for Consult: For ERCP cancer vs choledocholithiasis EMERGENT Consult: No Notified: Yes Date Notified: 03/11/23 Time Notified: 17:39 Method of Notification: Text Method of Consult:: In-Person Comments:: IS HERE NOW Consult: General Surgery Routine Consulting Provider: Shadi Guevara Reason for Consult: choledocholithiasis EMERGENT Consult: No Notified: Yes Date Notified: 03/11/23 Time Notified: 16:43 Method of Notification: ED Physician Initiated Reason For Visit: CHOLEDOCOLITHIASIS Diagnosis Discharge Diagnosis (1) Choledocholithiasis: Status: Acute Code(s): K80.50 - Calculus of bile duct without cholangitis or cholecystitis without obstruction Plan: Choledocholithiasis with hyperbilirubinemia and jaundice ERCP on 03/12 whowed moderate dilation of the ventral pancreatitc duct in the head of the pancreas. Temporary stent placed in the ventral pancreatic duct. On Amp/SB MRCP showed marked intra and extrahepatic biliary ductal dilation with what appears to be a small obstructing stone in the intrapancreatic CBD. Markedly distended gallbladder with multiple gallstones Nisha tube placed today. Continue Unasyn. GS recommending transfer to facility with biliary surgeon adelina to do a duct exploration. I spoke with [facility], patient has been accepted by Dr. Jenkins Plan Chronic conditions: CAD status post CABG and stent hold her aspirin secondary to intervention HTN Blood pressures are currently stable can resume her home blood pressure medications HLD Continue with Lipitor A-fib Hold her Eliquis secondary to intervention DM2 We will hold all of her home medication. We will place her on sliding scale insulin secondary to being on clear liquid diet and n.p.o. after midnight. We will monitor and make adjustments as necessary GERD Stable Continue with PPI DVT: Lovenox Greater than 50 minutes of which greater than 50% of the time was discussing with the patient, discussing the recommendation for transfer and the reasoning for the transfer, discussing with [facility] transfer line about the case. Medications at Discharge Home Medications multivitamin,vs-jrjv-ceiiascj 27 mg-0.4 mg tablet 1 tab PO DAILY 09/07/13 cholecalciferol (vitamin D3) 50 mcg (2,000 unit) capsule 4,000 unit PO DAILY 04/30/19 niacin 500 mg capsule,extended release 500 mg PO QHS 05/06/19 ascorbic acid (vitamin C) 500 mg capsule 500 mg PO DAILY 09/03/19 aspirin 81 mg tablet,delayed release (Adult Aspirin Regimen) 81 mg PO DAILY 09/03/19 folic acid 1 mg tablet 1 mg PO DAILY 09/30/19 melatonin 3 mg capsule 3 mg PO HS PRN Sleep 09/30/19 metoprolol succinate 50 mg tablet,extended release 24 hr 50 mg PO BID this is a dose increase for tachycardia and htn #180 tabs 06/22/21 empagliflozin 25 mg tablet (Jardiance) 25 mg PO DAILY 04/06/22 gabapentin 100 mg capsule 100 mg PO QHS 04/06/22 insulin glargine 100 unit/mL (3 mL) subcutaneous pen (Lantus Solostar U-100 Insulin) 20 unit subcut QPM 04/06/22 pantoprazole 40 mg tablet,delayed release 40 mg PO DAILY 04/06/22 dulaglutide 3 mg/0.5 mL subcutaneous pen injector (Trulicity) 3 mg subcut QWEEK 10/31/22 apixaban 5 mg tablet (Eliquis) 5 mg PO BID 03/11/23 atorvastatin 10 mg tablet 10 mg PO QHS 03/11/23 furosemide 20 mg tablet 40 mg PO DAILY 03/11/23 lisinopril 20 mg tablet 10 mg PO DAILY 03/11/23 Hospital Course Operations None Procedures - (ERCP. Cholecystotomy tube. ) Summary of Care Provided Minutes Spent on Discharge: 50 Weight / BMI Weight Weight: 76.3 kg Body Mass Index (BMI) 29.7 ABG / Lab / Microbiology Data Result Diagrams: 03/13/23 05:40 03/13/23 05:40 Laboratory: Laboratory Results - last 24 hr 03/12/23 14:44: POC Glucose 125 H 03/12/23 16:32: POC Glucose 169 H 03/12/23 22:52: POC Glucose 312 H 03/13/23 05:40: WBC 4.3 L, RBC 3.21 L, Hgb 9.4 L, Hct 29.3 L, MCV 91.3 D, MCH 29.3, MCHC 32.1 D, RDW Std Deviation 65.7 H, RDW Coeff of Jo Ann 19.9 H, Plt Count 281, MPV 9.9, Immature Gran % (Auto) 0.500, Neut % (Auto) 80.1 H, Lymph % (Auto) 9.6 L, [place] % (Auto) 9.8, Eos % (Auto) 0.0, Baso % (Auto) 0.0, Absolute Neuts (auto) 3.4, Absolute Lymphs (auto) 0.41 L, Nucleated RBC % 0, Diff Path Review May foll, Anisocytosis 2+ 03/13/23 05:40: Sodium 136, Potassium 3.8, Chloride 105, Carbon Dioxide 24.0, Anion Gap 7, BUN 23 H, Creatinine 1.09 H, Estim Creat Clear Calc 37.46, Est GFR (MDRD) Af Amer 63, Est GFR (MDRD) Non-Af 52 L, BUN/Creatinine Ratio 21.1 H, Glucose 269 H, Calcium 7.8 L, Total Bilirubin 15.50 H*, AST 1246 H, ALT 663 H, Alkaline Phosphatase 1495 H, Total Protein 4.3 L, Albumin 1.4 L, Globulin 2.9, Albumin/Globulin Ratio 0.5 L 03/13/23 07:35: POC Glucose 254 H 03/13/23 11:21: POC Glucose 222 H Microbiology: Microbiology 03/13/23 10:00 Aspirate - Bile Gram Stain - Final Radiography Diagnostic Testing: Radiology Impression ERCP X-Ray 03/12/23 12:40 IMPRESSION: Unsuccessful ERCP. Electronically Signed: Benito Robles MD at 14:55 EDT , MRCP 03/12/23 17:18 IMPRESSION: 1. Marked intra and extrahepatic biliary ductal dilatation which with what appears to be a small obstructing stone in the intrapancreatic CBD. 2. Markedly distended gallbladder with multiple gallstones. 3. Mild ascites. 4. Bilateral pleural effusions. 5. Mild stranding of the perinephric fat without other evidence of renal abnormality. This may represent chronic changes. Electronically Signed: Catrachito Milton DO at 21:30 EDT , ADDENDUM: 03/12/23 2155 IMPRESSION: 1. Marked intra and extrahepatic biliary ductal dilatation which with what appears to be a small obstructing stone in the intrapancreatic CBD. 2. Markedly distended gallbladder with multiple gallstones. 3. Mild ascites. 4. Bilateral pleural effusions. 5. Mild stranding of the perinephric fat without other evidence of renal abnormality. This may represent chronic changes. N.B. : The above Results were Read Back by Catrachito Milton DO to Efrain Cantor RN, and understanding confirmed on 03/12/2023 21:49:05 (ET). Electronically Signed: Catrachito Milton DO at 21:30 EDT Reading Location ID and State: [facility] / [place] Tel [phone], Service support , Abscess Drainage CT 03/13/23 13:58 IMPRESSION: Successful CT guided percutaneous cholecystostomy, as described above. Conscious sedation protocol was followed. Electronically Signed: Benito Robles MD at 10:34 EDT , Meaningful Use Info Meaningful Use Diagnoses (Choose all that apply): None applicable Discharge Plan Admission Admit Date/Time: 03/11/23 16:38 Attending Provider: Jason Clinton Primary Care Provider: Apolinar Reinoso Consulting Providers: Shadi Guevara ; Ren Jin ; Boston King Instructions Patient Instructions: Mark Beltrán Drain Tube Dc, Post Op Drain Emptying Jolly, YAN TAVARES Procedural Sedation Discharge Orders/Prescriptions Prescriptions: No Action cholecalciferol (vitamin D3) 2,000 unit capsule 4,000 unit PO DAILY niacin 500 mg capsule, extended release 500 mg PO QHS ascorbic acid (vitamin C) 500 mg capsule 500 mg PO DAILY aspirin [Adult Aspirin Regimen] 81 mg tablet,delayed release (DR/EC) 81 mg PO DAILY pantoprazole 40 mg tablet,delayed release (DR/EC) 40 mg PO DAILY Jardiance 25 mg tablet 25 mg PO DAILY insulin glargine [Lantus Solostar U-100 Insulin] 100 unit/mL (3 mL) insulin pen 20 unit subcut QPM gabapentin 100 mg capsule 100 mg PO QHS Trulicity 3 mg/0.5 mL pen injector 3 mg subcut QWEEK Rx Instructions: SUNDAY multivitamin,vt-kcro-ieiyeycw 1 TABLET tablet 1 tab PO DAILY Label Comments: Supplement atorvastatin 10 mg tablet 10 mg PO QHS lisinopril 20 mg tablet 10 mg PO DAILY furosemide 20 mg tablet 40 mg PO DAILY Eliquis 5 mg tablet 5 mg PO BID folic acid 1 mg tablet 1 mg PO DAILY melatonin 3 mg capsule 3 mg PO HS PRN (Reason: Sleep) metoprolol succinate 50 mg tablet extended release 24 hr 50 mg PO BID Qty: 180 3RF Referrals / Follow Up: Apolinar Reinoso MD [Primary Care Provider] - Disposition Disposition (needs filled in before D/C Order can be placed): Acute Care Hospital Charges/Coding Visit Charges Inpatient E&M: 41178 Disch Hosp >30min
--- NOTE | 2023-03-13 13:58 | CT_ITS ---
PROCEDURE: CT GUIDED percutaneous cholecystostomy. DATE: March 13, 2023. INDICATION: Female, 72 years old. Acute cholecystitis. Biliary ductal dilatation. PHYSICIAN: Benito Robles M.D. RADIATION DOSAGE (If Supplied By Facility): CTDIvol = ( 22.5 ) mGy, DLP = ( 767.05 ) mGycm. Individualized dose optimization techniques were utilized. PROCEDURE: The risks, benefits, and alternatives to the procedure were explained to the patient. The specific risk of hemorrhage requiring further treatment or intervention was detailed and accepted. Follow-up instructions were discussed with the patient as well. Written informed consent was obtained. The patient was brought into the CT suite and placed in the supine position. . An appropriate entry site was identified. The overlying skin was prepped and draped in the usual sterile fashion. 1% lidocaine was administered subcutaneously for local anesthesia. Conscious sedation was performed. The patient received 2 mg of Versed and 50 mcg of fentanyl intravenously. Conscious sedation was started at 9:19 AM and terminated at 9:51 AM. The patient was independently monitored by the department nurse. Under CT guidance, a 8 [place] percutaneous all purpose drainage catheter was placed into the gallbladder lumen. 250 ccs of dark green bile was removed. The drainage catheter was left within the gallbladder lumen with gravity drainage. Hemostasis was obtained. The patient tolerated the procedure well without immediate complications. CT/CT Guidance Abscess Drg w/Cath IMPRESSION: Successful CT guided percutaneous cholecystostomy, as described above. Conscious sedation protocol was followed. Electronically Signed: Benito Robles MD at 10:34 EDT ,
--- NOTE | 2023-03-13 14:34 | CHAPLAIN ---
Type of Pastoral Visit _x__ Initial Visit ___ Follow-up Visit ___ On-call Visit ___ General Patient Visit ___ Spiritual Assessment ___ Family Conference ___ Bereavement ___ Rapid Response ___ Code Blue ___ Other (describe below) Pastoral Care Referral From _x__ Patient ___ Family ___ Nurse ___ Physician ___ Complaint Evaluation Supervisor ___ Band Teacher ___ Other (describe below) Sacrament/Intervention _x__ Active listening ___ Anointing ___ Confucianist ___ Bereavement ___ Communion ___ Betty exploration ___ _x__ Life review _x__ Prayer ___ Reconciliation ___ Sacrament of Sick _x__ Supportive presence ___ Wedding ___ Other (describe below) Pastoral Comments
[2023-03-13] MEDS: 0.9% Normal Saline 1,000 ML 75 ML IV (15:04)
[2023-03-13] MEDS: 0.9% Saline Lock 10 ML Syringe IV (16:26)
[2023-03-13 16:55] LABS: Bedside Glucose 312 mg/dL (74-106)
--- NOTE | 2023-03-13 17:47 | EX.PCM.PN.GI ---
Subjective Subjective Patient underwent ERCP yesterday. She had obstruction at the distal, bile duct. She was on anticoagulation so aggressive treatment was not pursued. She did get a pancreatic stent dose placed yesterday. Objective Data Objective Data Vital Signs: Vital Signs Temp Pulse Resp BP Pulse Ox O2 Del Method O2 Flow Rate 99.0 F 88 16 97/43 L 95 Room Air 3 03/13/23 14:15 03/13/23 14:15 03/13/23 14:15 03/13/23 14:15 03/13/23 14:15 03/13/23 14:15 03/13/23 09:19 Oxygen Flow Rate (L/min) [7] 3 Oxygen Flow Rate (L/min) [6] 3 Oxygen Flow Rate (L/min) [5] 3 Oxygen Flow Rate (L/min) [4] 3 Oxygen Flow Rate (L/min) [3] 3 Oxygen Flow Rate (L/min) [2] 3 Oxygen Delivery Method [7] Nasal Cannula Oxygen Delivery Method [6] Nasal Cannula Oxygen Delivery Method [5] Nasal Cannula Oxygen Delivery Method [4] Nasal Cannula Oxygen Delivery Method [3] Nasal Cannula Oxygen Delivery Method [2] Nasal Cannula Oxygen Delivery Method [1 ( Room Air Initial Baseline)] Oxygen Delivery Method Room Air Weight: 168 lb 3.403 oz Body Mass Index (BMI) 29.7 Intake & Output: Intake and Output for Last 24 Hours 03/11/23 03/12/23 03/13/23 23:59 23:59 23:59 Intake Total 1889.5 / 1889.5 1596.00 / 1596.00 1494 / 1494 Output Total 30 / 30 Balance 1889.5 / 1889.5 1596.00 / 1596.00 1464 / 1464 Lab / Micro Data Result Diagrams: 03/13/23 05:40 03/13/23 05:40 Labs: Laboratory Results - last 24 hr 03/12/23 22:52: POC Glucose 312 H 03/13/23 05:40: WBC 4.3 L, RBC 3.21 L, Hgb 9.4 L, Hct 29.3 L, MCV 91.3 D, MCH 29.3, MCHC 32.1 D, RDW Std Deviation 65.7 H, RDW Coeff of Jo Ann 19.9 H, Plt Count 281, MPV 9.9, Immature Gran % (Auto) 0.500, Neut % (Auto) 80.1 H, Lymph % (Auto) 9.6 L, [place] % (Auto) 9.8, Eos % (Auto) 0.0, Baso % (Auto) 0.0, Absolute Neuts (auto) 3.4, Absolute Lymphs (auto) 0.41 L, Nucleated RBC % 0, Diff Path Review May foll, Anisocytosis 2+ 03/13/23 05:40: Sodium 136, Potassium 3.8, Chloride 105, Carbon Dioxide 24.0, Anion Gap 7, BUN 23 H, Creatinine 1.09 H, Estim Creat Clear Calc 37.46, Est GFR (MDRD) Af Amer 63, Est GFR (MDRD) Non-Af 52 L, BUN/Creatinine Ratio 21.1 H, Glucose 269 H, Calcium 7.8 L, Total Bilirubin 15.50 H*, AST 1246 H, ALT 663 H, Alkaline Phosphatase 1495 H, Total Protein 4.3 L, Albumin 1.4 L, Globulin 2.9, Albumin/Globulin Ratio 0.5 L 03/13/23 07:35: POC Glucose 254 H 03/13/23 11:21: POC Glucose 222 H 03/13/23 16:31: POC Glucose 312 H Micro: Microbiology 03/13/23 10:00 Aspirate - Bile Gram Stain - Final Radiography Diagnostic Testing: Radiology Impression MRCP 03/12/23 17:18 IMPRESSION: 1. Marked intra and extrahepatic biliary ductal dilatation which with what appears to be a small obstructing stone in the intrapancreatic CBD. 2. Markedly distended gallbladder with multiple gallstones. 3. Mild ascites. 4. Bilateral pleural effusions. 5. Mild stranding of the perinephric fat without other evidence of renal abnormality. This may represent chronic changes. Electronically Signed: Catrachito Milton DO at 21:30 EDT Reading Location ID and State: [facility] / [place] Tel [phone], Service support , ADDENDUM: 03/12/23 0601 IMPRESSION: 1. Marked intra and extrahepatic biliary ductal dilatation which with what appears to be a small obstructing stone in the intrapancreatic CBD. 2. Markedly distended gallbladder with multiple gallstones. 3. Mild ascites. 4. Bilateral pleural effusions. 5. Mild stranding of the perinephric fat without other evidence of renal abnormality. This may represent chronic changes. N.B. : The above Results were Read Back by Catrachito Milton DO to Efrain Cantor RN, and understanding confirmed on 03/12/2023 21:49:05 (ET). Electronically Signed: Catrachito Milton DO at 21:30 EDT , Abscess Drainage CT 03/13/23 13:58 IMPRESSION: Successful CT guided percutaneous cholecystostomy, as described above. Conscious sedation protocol was followed. Electronically Signed: Benito Robles MD at 10:34 EDT , Physical Exam Const alert and no apparent distress HEENT head/scalp atraumatic and moist oral mucous membranes Eyes Eyes Narrative: icterus Resp normal respiratory effort, no retractions, no use of accessory muscles and clear to auscultation bilaterally Cardio regular rate, regular rhythm and S1 normal heart sound GI normal to inspection, nondistended, normoactive bowel sounds, soft to palpation, non-tender and non-distended Extremity normal to inspection Assessment & Plan Assessment/Plan (1) Choledocholithiasis: PLAN: Choledocholithiasis with hyperbilirubinemia and jaundice ERCP on 03/12 whowed moderate dilation of the ventral pancreatitc duct in the head of the pancreas. Temporary stent placed in the ventral pancreatic duct. On Amp/SB MRCP showed marked intra and extrahepatic biliary ductal dilation with what appears to be a small obstructing stone in the intrapancreatic CBD. Markedly distended gallbladder with multiple gallstones Nisha tube placed today. Continue Unasyn. GS recommending transfer to facility with biliary surgeon wiling to do a duct exploration. Charges/Coding Visit Charges Inpatient E&M: 30916 Subs Hosp L3
--- NOTE | 2023-03-13 19:34 | NURSING ---
Called report to Linda TAVARES at [facility] [phone]. Told her pt was in route already to the facility.
[2023-03-14 12:29] LABS: Pathologist Review Reviewed
== END 2023-03-13 19:23 | disposition short-term general hospital (02) | DRG 445 ==
LOC: ED 15:05 → MS3 16:09
PROVIDERS: Anesthesiology; Internal Medicine Gastroenterology; Admitting Provider Family Medicine; Emergency Provider Emergency Medicine; PCP Family Medicine
PROC: (CPT 43260; principal; 2023-03-12 15:40)
DX: K80.71 Calculus of gallbladder and bile duct without cholecystitis with obstruction (principal); I50.32 Chronic diastolic (congestive) heart failure; I13.0 Hypertensive heart and chronic kidney disease with heart failure and stage 1 through stage 4 chronic kidney disease, or unspecified chronic kidney disease; R17 Unspecified jaundice; E11.22 Type 2 diabetes mellitus with diabetic chronic kidney disease; E11.40 Type 2 diabetes mellitus with diabetic neuropathy, unspecified; I48.91 Unspecified atrial fibrillation; E78.5 Hyperlipidemia, unspecified; I25.10 Atherosclerotic heart disease of native coronary artery without angina pectoris; K21.9 Gastro-esophageal reflux disease without esophagitis; N18.9 Chronic kidney disease, unspecified; K86.89 Other specified diseases of pancreas; Z95.5 Presence of coronary angioplasty implant and graft; Z87.891 Personal history of nicotine dependence; Z82.5 Family history of asthma and other chronic lower respiratory diseases; Z79.84 Long term (current) use of oral hypoglycemic drugs; Z79.01 Long term (current) use of anticoagulants; Z95.1 Presence of aortocoronary bypass graft
CPT/HCPCS: 36415; 71045; 74177; 74181; 74328; 75989; 76000; 80053; 82150; 82962; 83036; 83690; 85025; 85610; 85730; 87070; 87075; 87077; 87186; 87205; 88108; 88305; 88313; 93005; 99156; 99157; 99285; J7030; J7050; J7120; Q9967; A4216; J0295; J1610; J2405

== ENCOUNTER 2023-05-08 16:34 | Emergency (ER) | payer MEDICARE, OTHER, SELFPAY ==
[2020-01-30 13:32] VITALS: BMI 33.2
[2023-05-08 16:35] VITALS: BP 89/52; PULSE 74; RESP 16; TEMP 35.8; O2SAT 100
[2023-05-08 16:40] VITALS: BMI 32.4
[2023-05-08 17:04] VITALS: BP 111/20; PULSE 78; RESP 17; O2SAT 99
--- NOTE | 2023-05-08 17:24 | EDS_ITS ---
HPI History of Present Illness Chief Complaint: Edema Informant: patient Onset/Context/Timing Onset: Weeks (2) Context: Gradual Onset Timing: Continuous Quality: Swelling Location: Bilateral lower extremities Worsened by: Nothing Relieved by: Nothing Narrative Narrative: Patient presents with lower extremity swelling that has been getting worse over the past 2 weeks. Patient states she had a Whipple procedure done on 04/26/2023. Patient states that she has had swelling in her legs since the surgery. Patient denies any pain. Patient states nothing makes it better nothing makes it worse. Patient states she is been using compression socks with no improvement. Patient states she has been having difficulty lifting her legs due to the swelling. Patient denies any shortness of breath. Patient denies any chest pain. Patient denies any fevers or chills. Patient states she called her primary care physician who told her to come to the emergency department. [facility] Medical History Ambulates with cane Arthritis Atherosclerosis of coronary artery without angina pectoris Bilateral pleural effusion Carotid artery disease Cellulitis of left leg Chronic anticoagulation Chronic kidney disease Diabetes mellitus, type II Diabetic neuropathy Diastolic congestive heart failure Erythematous bladder mucosa Essential hypertension Former smoker Gastric reflux History of arthritis History of atrial fibrillation History of diabetes mellitus Hyperlipidemia Left ventricular hypertrophy Nonrheumatic mitral (valve) insufficiency Nonrheumatic tricuspid (valve) insufficiency Pancreatic cancer Postoperative atrial fibrillation PVCs (premature ventricular contractions) Secondary pulmonary hypertension Urinary tract infection Wears dentures Wears glasses Home Medications multivitamin,qh-[id number] 27 mg-0.4 mg tablet 1 tab PO DAILY 09/07/13 [History Last Taken 09/07/13 03:00] cholecalciferol (vitamin D3) 50 mcg (2,000 unit) capsule 4,000 unit PO DAILY 04/30/19 [History Last Taken Unknown] niacin 500 mg capsule,extended release 500 mg PO QHS 05/06/19 [History Last Taken Unknown] ascorbic acid (vitamin C) 500 mg capsule 500 mg PO DAILY 09/03/19 [History Last Taken Unknown] aspirin 81 mg tablet,delayed release (Adult Aspirin Regimen) 81 mg PO DAILY 09/03/19 [History Last Taken Unknown] folic acid 1 mg tablet 1 mg PO DAILY 09/30/19 [History Last Taken Unknown] melatonin 3 mg capsule 3 mg PO HS PRN Sleep 09/30/19 [History Last Taken Unknown] metoprolol succinate 50 mg tablet,extended release 24 hr 50 mg PO BID this is a dose increase for tachycardia and htn #180 tabs 06/22/21 [Rx Last Taken 04/13/22 07:00] empagliflozin 25 mg tablet (Jardiance) 25 mg PO DAILY 04/06/22 [History Last Taken Unknown] gabapentin 100 mg capsule 100 mg PO QHS 04/06/22 [History Last Taken Unknown] insulin glargine 100 unit/mL (3 mL) subcutaneous pen (Lantus Solostar U-100 Insulin) 20 unit subcut QPM 04/06/22 [History Last Taken Unknown] pantoprazole 40 mg tablet,delayed release 40 mg PO DAILY 04/06/22 [History Last Taken 04/13/22 07:00] dulaglutide 3 mg/0.5 mL subcutaneous pen injector (Trulicity) 3 mg subcut QWEEK 10/31/22 [History Last Taken Unknown] apixaban 5 mg tablet (Eliquis) 5 mg PO BID 03/11/23 [History Last Taken Unknown] atorvastatin 10 mg tablet 10 mg PO QHS 03/11/23 [History Last Taken Unknown] furosemide 20 mg tablet 40 mg PO DAILY 03/11/23 [History Last Taken Unknown] lisinopril 20 mg tablet 10 mg PO DAILY 03/11/23 [History Last Taken Unknown] Allergy/AdvReac Type Severity Reaction Status Date / Time pioglitazone HCl [From [facility]] Allergy Swelling Verified 05/08/23 16:35 Family History Mother COPD (chronic obstructive pulmonary disease) Hypertension CAD (coronary artery disease) Sister Hypertension Diabetes Surgical History H/O Whipple procedure History of cataract removal with insertion of prosthetic lens History of colonoscopy History of coronary artery bypass graft x 3 (~08/12/19) History of laparoscopic-assisted vaginal hysterectomy History of left heart catheterization (06/11/19) History of right-sided carotid endarterectomy (12/13/11) History of shoulder surgery History of tonsillectomy Stented coronary artery (08/19/07) Social History Smoking Status: Former smoker quit date: 05/01/02 pack-years: 40 how long ago did patient quit smokin years ago alcohol intake: current alcohol intake frequency: holidays/special occasions only substance use type: does not use caffeine: Yes Type: coffee Number of servings: 12 additional social history: Works at [employer] ROS ROS ED Constitutional Constitutional ED: Denies chills or fever(s) Eyes Eyes: Denies blurry vision or change in vision ENT ENT ED: Denies rhinorrhea or sore throat Cardiovascular Cardiovascular: Denies chest pain or palpitations Respiratory/Chest Respiratory/Chest: Denies cough or dyspnea Gastrointestinal Gastrointestinal: Denies nausea or vomiting Genitourinary Genitourinary ED: Denies dysuria or hematuria Musculoskeletal Musculoskeletal: Denies back pain or neck pain Integumentary Denies abscess or rash Neurologic Neurologic: Denies headache(s) or weakness Allergic/Immunologic Allergic/Immunologic ED: Denies mouth swelling or urticaria EXAM Physical Exam Const Vital Signs: 05/08/23 16:35 05/08/23 17:04 05/08/23 17:04 Temperature 96.4 F L Temperature Source Temporal Pulse Rate 74 78 Respiratory Rate 16 17 Respiratory Effort Normal Non-Labored Respiratory Pattern Normal Blood Pressure 89/52 L 111/20 L Blood Pressure Mean 64 50 Pulse Ox 100 99 Oxygen Delivery Method Room Air Room Air 05/08/23 18:03 Temperature Temperature Source Pulse Rate 80 Respiratory Rate 14 Respiratory Effort Respiratory Pattern Blood Pressure 123/46 H Blood Pressure Mean 71 Pulse Ox 96 Oxygen Delivery Method Room Air Positive well nourished and well developed General Appearance ED: well developed and NAD HEENT Reports moist mucous membranes Neck supple and no JVD Resp normal respiratory effort and clear to auscultation bilaterally Cardio regular rate and regular rhythm GI normal to inspection, nondistended, normoactive bowel sounds Palpation: soft and tender epigastric, LUQ and RUQ; Negative for guarding or rebound tenderness present Extremity normal to inspection General Extremety ED: Yes edema; Negative for tenderness General Extremity: edema bilateral lower extremity Details: moderate Neuro oriented x3, CN's II-XII intact bilaterally and no sensory deficits noted Sensorium / Orientation: alert Motor Exam: strength 5/5 throughout Psych mental status grossly normal Skin no rashes or lesions noted MDM MDM MDM Narrative Medical decision making narrative: Differential diagnosis includes congestive heart failure, peripheral edema, cardiac dysrhythmia, cardiac ischemia, chronic kidney disease, and DVT. CBC will be obtained to assess for leukocytosis and anemia. Basic metabolic profile will be obtained to assess for electrolyte abnormality and renal function. BNP will be obtained to assess for congestive heart failure. High-sensitivity troponin will be obtained to assess for cardiac ischemia. EKG will be obtained to assess for cardiac dysrhythmia and cardiac ischemia. Venous duplex of the lower extremities will be obtained to assess for DVT. History & Record Review Additional record(s) reviewed:: Prior labs Lab Data Attestation: I reviewed the patient's lab results. Lab results narrative: CBC was reviewed. There is no stable anemia with a hemoglobin of 8.4 hematocrit 28.3. Platelets were normal. Basic metabolic profile was reviewed. Glucose w as 169. Anion gap was normal. High-sensitivity troponin was reviewed and was normal at 10. B natruretic peptide was reviewed and was slightly elevated at 374.6. This was actually improved compared to previous result. Labs: Laboratory Results - last 24 hr 05/08/23 18:17 WBC 7.1 RBC 3.00 L Hgb 8.4 L Hct 28.3 L MCV 94.3 MCH 28.0 MCHC 29.7 L RDW Std Deviation 55.9 H RDW Coeff of Jo Ann 16.1 H Plt Count 440 MPV 8.7 Immature Gran % (Auto) 0.300 Neut % (Auto) 51.4 Lymph % (Auto) 38.3 Dade % (Auto) 8.3 Eos % (Auto) 1.3 Baso % (Auto) 0.4 Absolute Neuts (auto) 3.6 Absolute Lymphs (auto) 2.71 Nucleated RBC % 0 Sodium 138 Potassium 4.4 Chloride 107 Carbon Dioxide 29.0 Anion Gap 2 L BUN 15 Creatinine 0.99 Estim Creat Clear Calc 41.24 Est GFR (MDRD) Af Amer 71 Est GFR (MDRD) Non-Af 58 L BUN/Creatinine Ratio 15.2 Glucose 169 H Calcium 7.4 L Troponin I High Sens 10 B-Natriuretic Peptide 374.6 H Radiography Diagnostic Testing: Clinical Impression(s) from Imaging Studies Venous Duplex 05/08/23 17:39 IMPRESSION: Normal bilateral lower extremity duplex venous ultrasound. Electronically Signed: Jodi Garcia MD at 19:39 EDT , Venous duplex of the lower extremities was obtained. There is no evidence of DVT. This was interpreted by the radiologist and was also independently reviewed by myself. EKG Initial EKG: Attestation: I personally reviewed and interpreted this EKG as follows: Interpretation: Sinus Rhythm (72) and No Acute Injury Pattern Comments: EKG was obtained. On my independent interpretation, it showed a normal sinus rhythm with a rate of 72. MN interval, QRS interval, and QTc intervals were all normal. [place] was normal. There are no acute ST or T wave changes. Prior EKG tracings: available for review Prior: Unchanged (03/26/2023) Treatment and Re-Evaluation :: Patient was advised of her findings. Patient is feeling better on reevaluation. Patient was instructed to follow-up with her primary care physician in 5 to 7 days. Patient was instructed return if worse in any way. Patient understood and was agreeable with the plan. All questions were answered. Discharge Plan Triage Chief Complaint: Edema ED Provider: Jason Royal Dx/Rx/DC Orders Clinical Impression: Peripheral edema Instructions: ED Peripheral Edema, Bilateral Prescriptions: No Action cholecalciferol (vitamin D3) 2,000 unit capsule 4,000 unit PO DAILY niacin 500 mg capsule, extended release 500 mg PO QHS ascorbic acid (vitamin C) 500 mg capsule 500 mg PO DAILY aspirin [Adult Aspirin Regimen] 81 mg tablet,delayed release (DR/EC) 81 mg PO DAILY pantoprazole 40 mg tablet,delayed release (DR/EC) 40 mg PO DAILY Jardiance 25 mg tablet 25 mg PO DAILY insulin glargine [Lantus Solostar U-100 Insulin] 100 unit/mL (3 mL) insulin pen 20 unit subcut QPM gabapentin 100 mg capsule 100 mg PO QHS Trulicity 3 mg/0.5 mL pen injector 3 mg subcut QWEEK Rx Instructions: SUNDAY multivitamin,au-nuyu-emblilin 1 TABLET tablet 1 tab PO DAILY Patient Comments: Supplement atorvastatin 10 mg tablet 10 mg PO QHS lisinopril 20 mg tablet 10 mg PO DAILY furosemide 20 mg tablet 40 mg PO DAILY Eliquis 5 mg tablet 5 mg PO BID folic acid 1 mg tablet 1 mg PO DAILY melatonin 3 mg capsule 3 mg PO HS PRN (Reason: Sleep) metoprolol succinate 50 mg tablet extended release 24 hr 50 mg PO BID Qty: 180 3RF Primary Care Provider: Apolinar Reinoso Referrals: Apolinar Reinoso MD [Primary Care Provider] - 5-7 Days Disposition Disposition: Home, Self Care
--- NOTE | 2023-05-08 17:30 | EKG12_ITS ---
Test Reason : EDEMA Blood Pressure : / mmHG Vent. Rate : 072 BPM Atrial Rate : 576 BPM P-R Int : 126 ms QRS Dur : 094 ms QT Int : 426 ms P-R-T Axes : 005 039 052 degrees QTc Int : 466 ms SINUR RHYTHM Otherwise normal ECG Confirmed by CELSETE EUBANKS, APRIL ([id number]), newspaper photo editor JUN PEREZ ([id number]) on 05/14/2023 9:09:47 AM Referred By: Confirmed By:CHANDNI ALONSO MD
--- NOTE | 2023-05-08 17:39 | US_ITS ---
EXAM: US DUPLEX BILATERAL LOWER EXTREMITIES VEINS CLINICAL INDICATION: BILATERAL LEG SWELLING TECHNIQUE: Real-time duplex ultrasound scan of the bilateral lower extremity veins integrating B-mode two-dimensional vascular structure, Doppler spectral analysis, color flow Doppler imaging and compression. COMPARISON: No relevant prior studies available. FINDINGS: RIGHT DEEP VEINS: Unremarkable. No DVT in the right common femoral, femoral, proximal deep femoral or popliteal veins. The veins demonstrate normal color flow, are normally compressible, with normal phasic flow and/or augmentation response. RIGHT SUPERFICIAL VEINS: Unremarkable. No thrombus in the visualized right great saphenous vein. LEFT DEEP VEINS: Unremarkable. No DVT in the left common femoral, femoral, proximal deep femoral or popliteal veins. The veins demonstrate normal color flow, are normally compressible, with normal phasic flow and/or augmentation response. LEFT SUPERFICIAL VEINS: Unremarkable. No thrombus in the visualized left great saphenous vein. SOFT TISSUES: No acute findings. No popliteal cyst. US/Venous Duplex Imag/Samuel Extrem IMPRESSION: Normal bilateral lower extremity duplex venous ultrasound. Electronically Signed: Jodi Garcia MD at 19:39 EDT Reading Location ID and State: [id number] / Tel , Service support ,
[2023-05-08 18:03] VITALS: BP 123/46; PULSE 80; RESP 14; O2SAT 96
[2023-05-08 18:23] LABS: Absolute Lymphocyte Count 2.71 X10^3/uL (0.83-4.51); Absolute Neutrophil Count 3.6 X10^3/uL (2.0-7.7); Basophil# 0.03 X10^3/uL; Basophil% 0.4 % (0-1); Eosinophil# 0.09 X10^3/uL; Eosinophils% 1.3 % (0-5); Hematocrit 28.3 % (37-47); Hemoglobin 8.4 g/dL (12.0-15.0); Lymphocyte # 2.71 X10^3/ul (0.83-4.51); Lymphocyte % 38.3 % (19-41); Mean Corp Hgb Conc 29.7 g/dL (32-36); Mean Corpuscular Volume 94.3 fL (81-99); Mean Platelet Vol. 8.7 fl (6.2-12.0); Monocyte# 0.59 X10^3/uL; Monocyte% 8.3 % (0-10); NRBC Flagged by Analyzer 0 % (0-5); Neutrophil # 3.64 X10^3/uL (2.7-7.7); Neutrophil % 51.4 % (47-70); Platelet Count 440 K/mm3 (150-450); RBC Distribution Width CV 16.1 % (11.6-14.6); RBC Distribution Width SD 55.9 fl (35.1-43.9); White Blood Count 7.1 K/mm3 (4.4-11.0)
[2023-05-08 18:38] LABS: Anion Gap 2 (5-15); BUN 15 mg/dL (7-18); BUN/Creat Ratio 15.2 RATIO (10-20); Calcium,Total 7.4 mg/dL (8.5-10.1); Chloride 107 mmol/L (98-107); Creatinine, Serum 0.99 mg/dL (0.55-1.02); EST Glomerular Filtration Rate 58 mL/min (>60); Est Glom Filt Rate - Afr Amer 71 mL/min (>60); Estimated Creatinine Clearance 41.24 ml/min; Glucose 169 mg/dL (74-106); Potassium 4.4 mmol/L (3.5-5.1); Sodium Level 138 mmol/L (136-145); Troponin-I HS 10 pg/mL (3.0-54.0)
[2023-05-08 18:51] LABS: BNP,B-Type NATRIURETIC PEPTIDE 374.6 pg/mL (0-100)
[2023-05-08 20:00] VITALS: BP 123/56; PULSE 75; RESP 16; O2SAT 97
== END 2023-05-08 20:22 | disposition home or self-care (01) ==
PROVIDERS: Emergency Provider Emergency Medicine; PCP Family Medicine; Visit Provider Emergency Medicine
DX: M79.89 Other specified soft tissue disorders (principal); I50.32 Chronic diastolic (congestive) heart failure; N18.9 Chronic kidney disease, unspecified; I25.10 Atherosclerotic heart disease of native coronary artery without angina pectoris; Z95.1 Presence of aortocoronary bypass graft; Z95.5 Presence of coronary angioplasty implant and graft; Z87.891 Personal history of nicotine dependence
CPT/HCPCS: 80048; 83880; 84484; 85025; 93005; 93970; 99284; A4216